=== PATIENT | male | born 1945 | race Caucasian/White ===

== ENCOUNTER 2018-06-08 02:32 | Outpatient (CLI) | payer BC, SELFPAY ==
[2018-06-08 09:15] LABS: Anion Gap 10.1 mmol/L (3-11); BUN 19 mg/dL (7-18); CO2 27.9 mmol/L (21.0-32.0); Calcium 9.1 mg/dL (8.5-10.1); Chloride 103 mmol/L (98-107); Cholesterol 122 mg/dL (50-200); Glucose 116 mg/dL (70-100); HDL Cholesterol 44 mg/dL (40-60); LDL CHOLESTEROL 65 mg/dL (<100); Potassium 4.5 mmol/L (3.5-5.1); Sodium 141 mmol/L (136-145); Triglyceride 81 mg/dL (30-150)
== END 2018-06-08 02:52 ==
PROVIDERS: PCP Internal Medicine; Visit Provider Internal Medicine
DX: E78.5 Hyperlipidemia, unspecified (principal); I10 Essential (primary) hypertension
CPT/HCPCS: 36415; 80048; 80061; 83721

== ENCOUNTER 2020-08-01 02:57 | Outpatient (CLI) | payer MEDICARE, BC, SELFPAY ==
[2020-08-01 08:55] LABS: Anion Gap 7.9 mmol/L (3-11); BUN 20 mg/dL (7-18); CO2 29.1 mmol/L (21.0-32.0); CREATININE 0.9 mg/dL (0.70-1.30); Calcium 9.2 mg/dL (8.5-10.1); Calculated LDL 71 mg/dL (<100); Chloride 104 mmol/L (98-107); Cholesterol 131 mg/dL (<200); Glucose 116 mg/dL (74-106); HDL Cholesterol 43 mg/dL (40-60); Potassium 4.5 mmol/L (3.5-5.1); Sodium 141 mmol/L (136-145); Triglyceride 86 mg/dL (<150)
== END 2020-08-01 02:58 | disposition home or self-care (01) ==
LOC: LBO 02:58
PROVIDERS: PCP Internal Medicine; Visit Provider Internal Medicine
DX: I10 Essential (primary) hypertension (principal); E78.00 Pure hypercholesterolemia, unspecified
CPT/HCPCS: 36415; 80048; 80061

== ENCOUNTER 2021-07-30 09:24 | Outpatient (CLI) | payer MEDICARE, SELFPAY ==
--- NOTE | 2021-07-30 09:15 | RT.EKG_ITS ---
APPROVED REPORT Exam: Resting ECG Reason for Exam: bradycardia Patient Location: O HR:64 bpm ECG Measurements Heart Rate 64 AXIS UT 278 P 2 QRSd 109 QRS -70 QT 401 T 54 QTc 414 Conclusion Sinus rhythm...normal P axis, V-rate 60- 99 Prolonged UT interval...UT >220, V-rate 50- 90 Incomplete RBBB and LAFB...axis(240,-40), S>R II III aVF
== END 2021-07-30 09:25 | disposition home or self-care (01) ==
LOC: DI.KIM 09:25
PROVIDERS: PCP Internal Medicine; Visit Provider Internal Medicine
DX: R00.1 Bradycardia, unspecified (principal)
CPT/HCPCS: 93010

== ENCOUNTER 2021-08-01 02:41 | Outpatient (CLI) | payer MEDICARE, SELFPAY ==
[2021-08-01 09:00] LABS: Anion Gap 7.4 mmol/L (3-11); BUN 23 mg/dL (7-18); CO2 29.6 mmol/L (21.0-32.0); CREATININE 0.9 mg/dL (0.70-1.30); Calcium 8.9 mg/dL (8.5-10.1); Calculated LDL 65 mg/dL (<100); Chloride 104 mmol/L (98-107); Cholesterol 124 mg/dL (<200); Glucose 115 mg/dL (74-106); HDL Cholesterol 40 mg/dL (40-60); Magnesium 2.2 mg/dL (1.8-2.4); Potassium 4.3 mmol/L (3.5-5.1); Sodium 141 mmol/L (136-145); Triglyceride 98 mg/dL (<150)
== END 2021-08-01 02:42 | disposition home or self-care (01) ==
LOC: LBO 02:41
PROVIDERS: PCP Internal Medicine; Visit Provider Internal Medicine
DX: I10 Essential (primary) hypertension (principal); E78.2 Mixed hyperlipidemia; R00.1 Bradycardia, unspecified
CPT/HCPCS: 36415; 80048; 80061; 83735; 84443

== ENCOUNTER 2021-08-05 01:03 | Outpatient (CLI) | payer MEDICARE, SELFPAY ==
--- NOTE | 2021-09-05 09:53 | CER_ITS ---
Date of service: 09/05/21 Time of Service: 09:53 Cardiac Event Recorder Referring Provider:: Simi De La Fuente Indications:: Bradycardia Cardiac Event Note: This is a 30-day event monitor reportedly ordered for bradycardia. Monitoring period consisted of 8 days and 9 hours Average heart rate overall this 65. Maximum was 110, minimum was 41 Predominant rhythm was sinus with first-degree AV block Mobitz 1 second-degree AV block (Shonda Gamble (was noted during sleep Heart rate during sleep fell as low as 41, some of these appear to be third- degree AV block Episodes that were reported to be atrial fibrillation on review did not appear to be that but rather sinus with atrial premature beats associated with significant artifact There were no apparent patient symptoms
== END 2021-08-05 01:04 | disposition home or self-care (01) ==
LOC: RT 01:04
PROVIDERS: PCP Internal Medicine; Visit Provider Internal Medicine
DX: R00.1 Bradycardia, unspecified (principal)
CPT/HCPCS: 93270

== ENCOUNTER 2021-09-05 09:53 | Outpatient (CLI) | payer MEDICARE, SELFPAY | END 2021-09-05 09:54 | LOC: CARDO 10-02 12:09 | PROVIDERS: PCP Internal Medicine; Referring Provider Internal Medicine; Visit Provider Internal Medicine Cardiovascular Disease | DX: R00.1 Bradycardia, unspecified (principal) | CPT/HCPCS: 93272 ==

== ENCOUNTER → 2022-03-26 11:55 | Outpatient (CLI) | payer MEDICARE, SELFPAY ==
--- NOTE | 2022-03-26 10:05 | DI.RAD_ITS ---
Exam(s) XR KNEE LT 4V AP,LAT,NISHA,PAT EXAM: XR KNEE LT 4V AP,LAT,NISHA,PAT CLINICAL HISTORY: evaluate joint space, r/o bony pathilogy,pain prox to knee and at night. TECHNIQUE: 2D digital imaging was performed. Three views. COMPARISON: No exams were available for comparison FINDINGS: BONES: No acute fracture is present. No bony destructive lesion is seen. JOINTS: Moderate to severe narrowing of the medial femoral tibial joint space. Mild periarticular sp urring. Severe narrowing of the Lateral patellofemoral joint with prominent periarticular spurring. A small joint effusion is seen. Bony densities seen superior to the patella could represent a loose body. Additional bony densities seen lateral to the patella. SOFT TISSUE: Normal. 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 DATA REPOSITORY: RADIATION DOSE DELIVERED:
--- NOTE | 2022-03-26 10:05 | DI.RAD_ITS ---
Exam(s) XR TIB/FIB LT EXAM: XR TIB/FIB LT CLINICAL HISTORY: r/o bony path; Hx radiating pain @ night,pain,m25.562,r52. TECHNIQUE: 2D digital imaging was performed. Two views. COMPARISON: CR RIGHT ANKLE COMPLETE from 05/23/2015 FINDINGS: BONES: No acute fracture is present. No bony destructive lesion is seen. Visualized portion of knee a nd ankle joints are unremarkable. SOFT TISSUE: Normal. IMPRESSION: Unremarkable radiographs of the left tibia and fibula. DATA REPOSITORY: RADIATION DOSE DELIVERED:
== END ==
PROVIDERS: PCP Internal Medicine; Visit Provider Student in an Organized Health Care Education/Training Program
DX: M25.562 Pain in left knee (principal); M79.662 Pain in left lower leg; M25.462 Effusion, left knee; M23.42 Loose body in knee, left knee; M17.12 Unilateral primary osteoarthritis, left knee
CPT/HCPCS: 73564; 73590

== ENCOUNTER 2022-08-05 20:18 | Emergency (ER) | payer MEDICARE, SELFPAY ==
[2022-08-05 20:23] VITALS: BP 159/79; PULSE 64; RESP 16; TEMP 36.2; O2SAT 96
--- NOTE | 2022-08-05 20:35 | W.ED.GENAD ---
Discharge Plan Disposition Patient Disposition: Home Discharge Details Clinical Impression: Foreign body of external eye, left Primary Care Provider: Karen Hall ED Provider: Inocente Tao Home Meds and New Rx's Prescriptions: Continued hepatitis A and B vaccine (PF) 720 VANNA unit- 20 mcg/mL syringe 1 ml IM ONCE Qty: 1 1RF Rx Instructions: administer 1st dose then 2nd dose 6 mos. later multivitamin with minerals 1 EACH tablet 1 ea PO DAILY Varicella-Zoster Ge/As01b/Pf [Shingrix Vial Kit] 50 MCG INJ 50 mcg IM ONCE Qty: 1 1RF losartan 50 mg tablet See Rx Instructions .ROUTE .COMPLEX Qty: 90 3RF Dose Instruction: TAKE ONE TABLET BY MOUTH EVERY DAY TO CONTROL FOR BLOOD PRESSURE Rx Instructions: TAKE ONE TABLET BY MOUTH EVERY DAY TO CONTROL FOR BLOOD PRESSURE atorvastatin 20 mg tablet See Rx Instructions .ROUTE .COMPLEX Qty: 90 3RF Dose Instruction: TAKE ONE TABLET BY MOUTH EVERY DAY Rx Instructions: TAKE ONE TABLET BY MOUTH EVERY DAY sildenafil [Viagra] 100 mg tablet 100 mg PO DAILY PRN (Reason: sexual activity) Qty: 10 5RF Rx Instructions: As needed for erectile dysfunction. hyewpkib-bmipndiep-IT 3.5-10,000-1 mg/mL-unit/mL-% solution 4 drp otic (ear) DIRECTED Discharge Instructions Additional Instructions: There is no evidence of foreign body or abrasion to the cornea of your left eye. Erythromycin ointment to left eye 3 times daily for the next 24 hours. Return if you develop pain, change to vision, or any other acute concern. Please continue routine medications. Medical Decision Making 76-year-old male presents from home stating while doing the dishes he felt a small piece of ceramic enter his eye. He attempted to remove and was very tearing at home. He has not had pain and questions whether the object was indeed removed. No change to vision, no persistent tearing of the eye, and no discomfort or pain. On fluorescein exam there is no evidence of foreign body, no Seidell sign. No evidence of corneal abrasion. I discussed with him it appears the object has been removed. We will empirically place him on 1 day of erythromycin ointment. He understands indications to seek reevaluation. HPI General Mode of arrival: ambulatory. Date/Time Provider Initiated Documentation: 08/05/22 20:19. Limitations to Documentation: no limitations. Information obtained by: patient. History of Present Illness 76 year old M presents to the emergency department with the chief complaint of Left eye foreign body, no pain, described as mild, and is localized to the eyes and left. Patient reports no radiation. Patient started experiencing this minute(s) and it has been now resolved. No relieving factors improve symptom(s), No exacerbating factors reported . Patient notes no other symptoms.. Patient did receive the following treatments prior to arrival, other (Question of removed at home) Related Data Home Medications Medication Instructions Recorded Confirmed multivitamin with minerals 1 ea PO DAILY 09/14/12 07/31/22 atorvastatin 20 mg tablet See Rx Instructions .Route 05/06/22 07/31/22 .COMPLEX #90 tabs losartan 50 mg tablet See Rx Instructions .Route 05/06/22 07/31/22 .COMPLEX #90 tabs sildenafil 100 mg tablet (Viagra) 100 mg PO DAILY PRN sexual 07/09/22 07/31/22 activity #10 tabs edpuwfwf-xwkugucof-qosxarlgl 3.5 4 drp otic (ear) DIRECTED 07/18/22 07/31/22 mg/mL-10,000 unit/mL-1 % ear solution hepatitis A and B virus 1 ml IM ONCE #1 mL 07/31/22 07/31/22 vaccine(PF)720 VANNA unit-20 mcg/mL IM syringe Previous Rx's Medication Instructions Recorded atorvastatin 20 mg tablet See Rx Instructions .Route 05/06/22 .COMPLEX #90 tabs losartan 50 mg tablet See Rx Instructions .Route 05/06/22 .COMPLEX #90 tabs sildenafil 100 mg tablet (Viagra) 100 mg PO DAILY PRN sexual 07/09/22 activity #10 tabs hepatitis A and B virus 1 ml IM ONCE #1 mL 07/31/22 vaccine(PF)720 VANNA unit-20 mcg/mL IM syringe Allergies Allergy/AdvReac Type Severity Reaction Status Date / Time lisinopril AdvReac Intermediate cough Verified 07/31/22 08:53 General Stated Complaint: EyeProblem SABRINA: 4 Review of Systems Narrative: Otherwise healthy, no other complaints, 4 systems were reviewed [facility] All Active Problems (Updated 08/05/22 @ 20:38 by Inocente Tao MD) Foreign body of external eye, left (Acute) Primary hypertension (Acute ~2012) Reduced speech discrimination (Acute) Sensorineural hearing loss of both ears (Acute) Obesity, unspecified (Acute 11/28/11) Male erectile disorder (Acute 06/02/13) Impaired fasting glucose (Chronic 08/09/12) Hyperlipidemia (Chronic 11/17/12) PCEq risk 22% LDL baseline 177 Adenoma of large intestine (Acute 03/02/13) 09/12/2148-llnsymqwaeq-bbnjh polyp-fragments of tubular adenoma; transverse polyp-sessile serrated [place] [place] Actinic keratosis (11/24/14) Bradycardia quality assurance monitor, stable--HR bradycardic, but it comes back down Carpal tunnel syndrome, unspecified upper limb (11/17/12) Cataracts, both eyes COVID (~03/2022) Dysphonia Exophoria of both eyes 08/08/21 [facility] [place] Fatigue (06/02/13) Hearing problem Impacted cerumen of both ears Knee pain, left Resolved with PT Lumbar spinal stenosis (~2012) MRI 2013 L3-L4 Myopia of both eyes with astigmatism and presbyopia Ocular migraine Posterior vitreous detachment, right eye H/O Pseudophakia of both eyes Vocal cord nodule Left Surgical History H/O colonoscopy (~2021) History of bilateral cataract extraction (~2009) History of strabismus surgery (~1981) Hx of tonsillectomy (~1959) Family History Mother Mental disorder Alzheimer Disease Dementia Lewy body dementia Sister Dementia Lewy body dementia Maternal Grandmother Dementia Lewy body dementia Father COPD (chronic obstructive pulmonary disease) Heart disease of [place] Maternal Grandfather Heart disease [place] at age 57 Social History Smoking/Tobacco Use Status: Never Smoking risk assessment performed?: Yes Alcohol Intake: never Drug use: Never Substance use type: does not use Adopted: No Caregiver/Support person: No Foster care: No Household members: spouse, family and children Housing: house Number of Children: 4 number of grandchildren: 7 Communication Needs: None and Hard of Hearing Education Level: master's degree Do you need help understanding health information?: Rarely 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[employer]) Pets and animals: No Sexually active: Yes Do you think of yourself as: straight/heterosexual Current gender identity: male What is your relationship status?: How often do you talk on the phone with friends or family?: three or more times per week How often do you get together with friends or relatives?: three or more times per week Do you belong to any clubs or organized social groups?: no Panel score (0-1 are the most socially isolated patients): 2 What type of physical activity do you participate in: bicycling and other Details: snow shoes when he can Duration: 15-30 minutes/day Frequency: 5-6 times per week Special amanuel needs: No Seatbelt use: always Helmet use: Yes Drive intox or ride w/intox route delivery driver: No Working smoke detector in home: Yes Fire extinguisher in home: Yes Carbon monox detector in home: Yes Do you feel safe at home: Yes Do you feel safe in your relationship?: Yes Victim of physical abuse: No Victim of emotional abuse: No Victim of sexual abuse: No Would you like helpful sources: No Exam Narrative Exam Narrative: GEN: awake, alert, oriented 3. Pleasant, well groomed, interactive. HEAD: Normocephalic, atraumatic ENT: Mucous membranes moist, oropharynx unremarkable, External ear exam unremarkable EYES: PERRL, EOMI, conjunctiva are clear, no foreign body appreciated. Under fluorescein examination there is no Giancarlo sign, no foreign body and no evidence of corneal abrasion NECK: Full ROM, no ARACELI, no menigismus CHEST/RESP: No respiratory distress EXT: Full ROM, no edema Neuro: Grossly normal neurologic exam, conversant, interactive. Psych: Speech fluent, thoughts congruent, affect normal Course Vital Signs Vital signs: Vital Signs Temperature 36.2 C L 08/05/22 20:23 Pulse 64 08/05/22 20:23 Respiratory Rate 16 08/05/22 20:23 Blood Pressure 159/79 H 08/05/22 20:23 Pulse Oximetry 96 08/05/22 20:23 Temperature 36.2 C L 08/05/22 20:23 Temperature Source Oral 08/05/22 20:23 Pulse 64 02/14/23 20:23 Respiratory Rate 16 08/05/22 20:23 Respiratory Effort Normal, Non-Labored 08/05/22 20:33 Blood Pressure 159/79 H 08/05/22 20:23 Blood Pressure Position Sitting 08/05/22 20:23 Pulse Oximetry 96 08/05/22 20:23 Oxygen Delivery Method Room Air 08/05/22 20:23 Oxygen Flow Rate 0 08/05/22 20:23
[2022-08-05] MEDS: Balanced Salt Solution 15 ML BTL OP (20:44)
[2022-08-05] MEDS: Erythromycin Ophth Oint 3.5 GM TUBE OP (20:45)
[2022-08-05] MEDS: Fluorescein STRIPS 100/BOX 1 MG (20:46)
== END 2022-08-05 20:48 | disposition home or self-care (01) ==
PROVIDERS: Emergency Provider Emergency Medicine; PCP Nurse Practitioner Adult Health
DX: T15.92XA Foreign body on external eye, part unspecified, left eye, initial encounter (principal); Z86.16 Personal history of COVID-19
CPT/HCPCS: 99283; 99284

== ENCOUNTER 2022-08-13 01:14 | Outpatient (CLI) | payer MEDICARE, SELFPAY ==
--- NOTE | 2022-08-13 07:00 | DI.MRI_ITS ---
Exam(s) MR IAC BRAIN WO/W EXAM: MR IAC BRAIN WO/W CLINICAL HISTORY: asymmetrical hearing, speech discrimination,H93.299. TECHNIQUE: Multiplanar multisequence MRI of the brain and internal auditory canals was performed. CONTRAST MATERIAL: IV Contrast: 18 mL of Dotarem contrast administered. COMPARISON: No exams were available for comparison FINDINGS: VENTRICLES AND EXTRA AXIAL SPACES: Normal in size and morphology for the patient's age. HEMORRHAGE: None. CEREBRAL PARENCHYMA: No focus of restricted diffusion to suggest acute infarct. No space-occupying le jamel identified. There are scattered hyperintense foci seen in the white matter on the T2 and FLAIR i mages most consistent with small vessel ischemic disease. MIDLINE SHIFT: None. BRAINSTEM/CEREBELLUM: Normal. CALVARIUM: Normal. ENHANCEMENT: No suspicious enhancement identified. VISUALIZED PARANASAL SINUSES/MASTOIDS: Clear. ABSENTEE-SHAWNEE OF DRAPER: Normal flow void. PITUITARY GLAND: Unremarkable. IAC/CP ANGLE: The internal auditory canals are within normal limits. The cerebellar pontine angles ar e unremarkable. No enhancing lesions are seen. Visualized portion of the facial nerves appear within normal limits. OTHER FINDINGS: None. IMPRESSION: 1. No evidence of an intracranial mass, enhancing lesion or infarct. 2. Age-appropriate cerebral atrophy and small vessel ischemic disease. DATA REPOSITORY:
[2022-08-13 08:19] LABS: Hemoglobin A1C 5.9 % (<5.7)
[2022-08-13 08:24] LABS: BUN 27 mg/dL (7-18); CREATININE 0.9 mg/dL (0.70-1.30); Calcium 8.8 mg/dL (8.5-10.1); Chloride 106 mmol/L (98-107); Estimated GFR 89.07 (mL/min/1.73m2); Glucose 181 mg/dL (74-106); Potassium 4.1 mmol/L (3.5-5.1); Sodium 142 mmol/L (136-145)
[2022-08-13] MEDS: Normal Saline Flush 10 ML SYR IVP (08:29)
[2022-08-13] MEDS: Gadoterate meglumine 20 ML VIAL 18 ML IVP (08:30)
[2022-08-13 08:39] LABS: Calculated LDL 55 mg/dL (<100); Cholesterol 116 mg/dL (<200); HDL Cholesterol 48 mg/dL (40-60); Triglyceride 68 mg/dL (<150)
[2022-08-13 08:55] LABS: Vitamin B12 1123 pg/mL (193-986)
[2022-08-13 08:57] LABS: Folate > 20.0 ng/mL (8.6-20.0)
== END 2022-08-13 01:34 ==
LOC: DI 01:15
PROVIDERS: Student in an Organized Health Care Education/Training Program; PCP Nurse Practitioner Adult Health; Visit Provider Registered Nurse Maternal Newborn
DX: H93.293 Other abnormal auditory perceptions, bilateral (principal); R73.01 Impaired fasting glucose; G57.93 Unspecified mononeuropathy of bilateral lower limbs; R47.89 Other speech disturbances; G31.89 Other specified degenerative diseases of nervous system; E78.5 Hyperlipidemia, unspecified; I10 Essential (primary) hypertension; E53.8 Deficiency of other specified B group vitamins
CPT/HCPCS: 70553; 80048; 80061; 82565; 82607; 82746; 83036

== ENCOUNTER 2023-07-03 10:57 | Outpatient (REF) | payer MEDICARE, SELFPAY ==
[2023-07-03 17:02] LABS: Bacteria Few HPF (Negative); C & S Indicated? C&S Done As Ordered; Casts Negative LPF (Negative); Crystals Negative HPF (Negative); Epithelial Cells Few HPF (Negative); Mucus Negative (Negative); RBC 0-2 HPF (0-2)
[2023-07-03 17:04] LABS: COMMENT (LAB VIEW ONLY) 92.44 mg/dL; Microalb ug/mg Crea 5.4 ug/mg Cr
== END 2023-07-03 10:58 | disposition home or self-care (01) ==
LOC: LBN 10:57
PROVIDERS: PCP Nurse Practitioner Adult Health; Visit Provider Student in an Organized Health Care Education/Training Program
DX: I10 Essential (primary) hypertension (principal); R73.01 Impaired fasting glucose; R30.0 Dysuria
CPT/HCPCS: 81015; 82043; 82570; 87086

== ENCOUNTER 2024-06-07 09:44 | Outpatient (CLI) | payer MEDICARE, SELFPAY ==
[2024-06-07 07:37] LABS: Hemoglobin A1C 5.9 % (<5.7)
[2024-06-07 07:47] LABS: Anion Gap 1.4 mmol/L (3-11); BUN 22 mg/dL (7-18); CO2 31.6 mmol/L (21.0-32.0); Calcium 9.1 mg/dL (8.5-10.1); Calculated LDL 43 mg/dL (<100); Chloride 107 mmol/L (98-107); Cholesterol 111 mg/dL (<200); Estimated GFR 77.52 (mL/min/1.73m2); Glucose 116 mg/dL (74-106); HDL Cholesterol 51 mg/dL (40-60); Potassium 4.3 mmol/L (3.5-5.1); Sodium 140 mmol/L (136-145); Triglyceride 87 mg/dL (<150)
--- OUTSIDE RECORDS SUMMARY | 2024-06-07 09:46 | XMS_ITS | Encounter Summary ---
Author Organization [facility] [place] [address] Care Team Providers Care Development Specialist Name Role Phone Simi De La Fuente MD Primary Care Provider [phone] Encounter Details Date Type Department Care Team (Latest Contact Info) Description 05/19/2022 Travel Social History Tobacco Use Types Packs/Day Years Used Date Smoking Tobacco: Never Smokeless Tobacco: Never Alcohol Use Standard Drinks/Week Comments No 0 (1 standard drink = 0.6 oz pur e alcohol) Sex and Gender Information Value Date Recorded Sex Assigned at Not on file Gender Identity Not on file Sexual Orientation Not on file documented as of this encounter Plan of Treatment Upcoming Encounters Date Type Department Care Team (Late st Contact Info) Description 05/09/2025 10:45 AM EST Office Visit Dermatology at [address] [place] [address] Melvin Ruiz MD [address] [place] [address], [place] [address] 06/08/2025 3:00 PM EST [place] [address] Irina Kaufman OD [facility] [place] [address] documented as of this encounter Visit Diagnoses Not on filedocumented in this encounter Care Teams Development Specialist Relationship Specialty Start Date End Date Simi De La Fuente MD [address] [place] [address] PCP - General General Internal Medicine 11/28/1604/29/23 documented as of this encounter
--- OUTSIDE RECORDS SUMMARY | 2024-06-07 09:46 | XMS_ITS | Encounter Summary ---
Author Organization [facility] [place] [address] Care Team Providers Care Material Lister Name Role Phone Karen Hall [employer] Primary Care Provider [phone] Reason for Visit * Reason Comments Eye Problem Encounter Details Date Type Department Care Team (Late st Contact Info) Description 09/24/2023 9:40 AM EDT Office Visit [place] [address] Irina Kaufman, OD [facility] [place] [address] Pseudophakia of both eyes; History of strabismus surgery; Exophoria of both eyes; Ocular migraine; Blepharitis of both upper and lower eyelid; Chalazion of right upper eyelid; Posterior vitreous detachment of right eye; Myopia of both eyes with astigmatism and presbyopia Social History Tobacco Use Types Packs/Day Years Used Date Smoking Tobacco: Never Smokeless Tobacco: Never Alcohol Use Standard Drinks/Week Comments No 0 (1 standard drink = 0.6 oz pur e alcohol) Sex and Gender Information Value Date Recorded Sex Assigned at Not on file Gender Identity Not on file Sexual Orientation Not on file documented as of this encounter Patient Instructions * Patient Instructions* Irina Kaufman, OD - 09/24/2023 9:40 AM EDT BLEPHARITIS As we discussed, you have dryness of your eyes/eyelids that is chronic! Warm compresses with a clean washcloth followed by lid scrubs with either Lid Care or similar pre-medicate guaze pads or justdigracielae Sancho's Baby Shampoo should help. As this is a chronic condition that took a long time to get, it won't go away overnight. Keep up with the treatment daily!! Blepharitis is a common condition where the glands of the eyelids become blocked or inflamed. Theseglands secrete oils that are necessary for maintaining a healthy tear film over the eye. If the glands become clogged and inflamed, your eyes may feel dry, irritated, scratchy or burning. Other symptoms are redness, stickiness, grittiness, tearing and a ???film?? over the vision. If the condition is not treated, you may develop styes, chalazions (hard bumps on the lids) or lid scarring and loss of eyelashes. Blepharitis is often found in people that have rosacea which is a skin condition that consists of redness of the cheeks, forehead and nose. Fortunately, blepharitis is a very treatable condition. The mainstay of treatment is good daily cleansing of the eyelids/lashes and warm compresses. Here are the instructions: Wash your hands and fingertips well. Use a clean wash cloth soaked in hot (but not burning) water. Hold the cloth gently against your closed eyes and reheat the cloth every 2-3 minutes. Massage above the eyelids with your eyes closed. After 10 minutes of application, with your eyes closed, take your fingers and gently rub across thelashes, freeing up any accumulated debris. Do this for 15- 30 seconds. Avoid touching the eyeball directly. Rinse the lashes with water and pat dry. You should do the above cleaning at least twice a day. ANOTHER OPTION FOR WARM COMPRESSES - PURCHASE links below: https://[employer]/collections/eye-care/products/bsvcgb-cgmed-rtgx-eye-comp ress. https://[employer] [place]/collections/eye-care/products/chadoq-mhpbrzyr-xmxgta-car s-xex-hpcag-jxf-aofq-urlopsa - can order such items individually. https://www.[employer]on/btvya-alwp-grq-compress JOSE EDUARDO Moist Heat Eye Compress opens oil glands and allows natural oils to flow back into the eye relieving discomfort from aging, contact lenses, use of digital devices and more. The easy-to-use compress delivers an effective moist heat treatment. Simply microwave for 20-25 seconds and apply for 10 minutes or as prescribed by your doctor. The compress helps stabilize the tear film, improves oil gland function and slows tear evaporation.Properly hydrated and lubricated eyes can expel bacteria and debris more efficiently so your eyes will feel refreshed and rejuvenated. Safe for frequent use. Self-hydrating - no need to add water. Anti-bacterial and non-allergenic. Washable and reusable. optimum conformance and comfort. Unique pod design provides improved fit and performance. Also available in a single eye model. The following are other things you can do for blepharitis. All products are sold over the counter. Cleaning EYELASHES with dilute Sancho's Baby Shampoo should help. Consider a dietary capsule supplement of [place] 3 Fatty Acids Please take 2000- 3000 mg of omega 3 fatty acids per day. These products can be bought in a health food store or there is a capsule called ???TheraTears Nutrition?? containing these ingredients. (If you have medical conditions, you shouldcheck with your primary care physician to make sure it is safe for you to use this product). For dry eye, use AM and PM PRESERVATIVE FREE drops noted below 4 to 6 times per day. Do NOT use ???Visine or anything that says ???gets the red out?? . AM Drops (Use 4-6 times per day) - DAYTIME DROPS TheraTears Refresh GenTeal Systane PM Drops (Use once at night in both eyes before you go to bed) - NIGHT-TIME DROPS Refresh PM Systane Gel GenTeal Gel Usually your eye comfort will improve after 4-6 weeks of treatment. If not, your eye doctor will discuss the situation with you. This is a chronic condition that took a long time to get, it won't go away overnight. Keep up with the treatment daily! documented in this encounter Progress Notes * Irina Kaufman, OD - 09/24/2023 9:40 AM EDT Martha Pulliam is a 78 y.o. male who had concerns including Eye Problem. Encounter Diagnoses Name Primary? Pseudophakia of both eyes History of strabismus surgery Exophoria of both eyes Ocular migraine Blepharitis of both upper and lower eyelid Chalazion of right upper eyelid Posterior vitreous detachment of right eye Myopia of both eyes with astigmatism and presbyopia Assessment: 1) Pseudophakia OU (by Dr. Gonzalez) 2) Ocular migraines - infrequent, stable. 3) S/p strabismus surgery both eyes at [facility] in 4) H/o posterior vitreous detachment OU, stable, documented since 2010 5) Refractive error / presbyopia OU 6) Chalazion RUL in the setting of Anterior & MGD-related Posterior Blepharitis OU contributingto Dry Eye OU - Advised lid hygiene with dilute baby shampoo or OcuSoft wipes & warm compress BID 5-10 min OUwith lid massage - Advised PF AT's Refresh, Systane or Thera Tears QID-PRN OU & Refesh PM vy QHS OU. - Pt ed re chronicity of condition and need for continued lid maintenance. RTC w/ worsening sx. Plan: 1) Monitor. 2) Pt education on ocular findings. Normal retinal exam. Monitor. 3) Good alignment today, exophoria at D=N. Return with symptoms of diplopia. 4) Stable. Return stat with new onset flashes, floaters, curtain or other visual change. 5) Does okay without glasses however needs glasses for driving rx given. Continue with OTC readers at near PRN. Cautioned about driving !! Follow up: as malissa for CEE. documented in this encounter Plan of Treatment Upcoming Encounters Date Type Department Care Team (Late st Contact Info) Description 05/09/2025 10:45 AM EST Office Visit Dermatology at [place] [address] [place] [id number] Melvin Ruiz MD [address], [place] [address] 06/08/2025 3:00 PM EST Office Visit [place] [address] Irina Kaufman OD [facility] [place] [address] documented as of this encounter Visit Diagnoses Diagnosis Pseudophakia of both eyes Lens replaced by other means History of strabismus surgery Exophoria of both eyes Ocular migraine Other forms of migraine, without mention of intractable migraine without mention of status migrainosus Blepharitis of both upper and lower eyelid Chalazion of right upper eyelid Chalazion Posterior vitreous detachment of right eye Vitreous degeneration Myopia of both eyes with astigmatism and presbyopia documented in this encounter Care Teams Material Lister Relationship Specialty Start Date End Date Karen Hall APRN [address] [place] [address] PCP - General Geriatric Medicine 04/30/23 documented as of this encounter
--- OUTSIDE RECORDS SUMMARY | 2024-06-07 09:46 | XMS_ITS | Encounter Summary ---
[place] [address] Care Team Providers Care Iso Coordinator Name Role Phone Bandar Dorantes MD Primary Care Provider + Reason for Visit * Reason Comments Advice Only * Consultation (Routine) - Closed Specialty Diagnoses / Procedures Referred By Aurelia devi Referred To Contact Otolaryngology Diagnoses tongue numbness Bandar Dorantes MD [address] [place] [phone] [facility] [address] [place] [phone] Referral ID Status Reason Start Date Expiration Date V isits Requested Visits Authorized [id number] Closed Connection Center 10/31/2016 10/31/2017 1 1 Encounter Details Date Type Department Care Team (Late st Contact Info) Description 11/25/2016 2:00 PM EDT Office Visit [place] [address] Eleni Jose APRN [facility] [place] [address] Numbness of tongue Social History Tobacco Use Types Packs/Day Years Used Date Smoking Tobacco: Never Alcohol Use Standard Drinks/Week Comments No 0 (1 standard drink = 0.6 oz pur e alcohol) Sex and Gender Information Value Date Recorded Sex Assigned at Not on file Gender Identity Not on file Sexual Orientation Not on file documented as of this encounter Last Filed Vital Signs Vital Sign Reading Time Taken Comments Blood Pressure 173/94 11/25/2016 2:11 PM EDT Pulse 69 11/25/2016 2:11 PM EDT Temperature - - Respiratory Rate 20 11/25/2016 2:11 PM EDT Oxygen Saturation 100% 11/25/2016 2:11 PM EDT Inhaled Oxygen Concentration - - Weight - - Height - - Body Mass Index - - documented in this encounter Progress Notes * Eleni Jose, [employer] - 11/25/2016 2:00 PM EDT Date of Visit:11/25/2016 Location of Visit: Otolaryngology Clinic, [facility] Patient: Martha Pulliam 1945, [id number] Chief Complaint: Kendall is a 71 year old with c/o numbness off and on the left lateral aspect of his tongue after a tooth extraction. Interval History: Kendall is a 71 year old with the above history here for an evaluation of numbness along the left lateral tongue. The symptoms started 2 weeks after 2 molars were removed along the posterior mandible. He has been back to see his dentist who has not found any issues. The numbness can occur randomly and last for a few seconds. He has noticed some numbness which is caused from hot /and cold food or drink. He denies any other neurological symptoms. Taste is wnl. He has full motionof his tongue. He is planning on getting an implant. Past Medical History: Other than above, Past Medical History: Diagnosis Date ??? Cardiac disease ??? Strabismus Surgery x's 2-OU . Medications: Current Outpatient Prescriptions on File Prior to Visit Medication Sig Dispense Refill ??? atorvastatin (LIPITOR) 40 mg Tablet Daily ??? losartan (COZAAR) 50 mg Tablet Daily No current facility-administered medications on file prior to visit. Allergies:Review of patient's allergies indicates no known allergies. ROS: Pertinent positive findings discussed above. No other findings on review of constitutional, visual, cardiovascular, respiratory, gastrointestinal, genitourinary, musculoskeletal, dermatologic, neurological, psychiatric, endocrine, hematologic or immunologic systems. Physical Examination: Blood pressure (!) 173/94, pulse 69, resp. rate 20, SpO2 100 %. General: Age-appropriate interactive behavior in no acute distress. Face:Symmetric without dysmorphic features. Ears: Auricles symmetric bilaterally without lesions. External auditory canals are clear. On the left, tympanic membrane is clear. Middle ear on the left without middle ear pathology. On the right, tympanic membrane clear. Middle ear on the right without middle ear pathology. Nose: Patent anteriorly; healthy pink mucosa without lesions. Septum without significant deviation. Mouth: Lips and gingiva pink, moist, without lesions. Dentition healthy but 2 molars are extracted along the posterior mandible on the left. Tongue and floor of mouth soft without lesions or masses. Hard palate without lesions. Pharynx: Soft palate without lesions; uvula intact without evidence of submucus cleft palate. Oropharynx symmetric. Neck: No lymphadenopathy. Neuro: CN III-XII grossly intact. Impression: 1) Numbness of tongue after dental extraction Plan: The extraction may have had a dental root that was close to the facial nerve causing some change in sensitivity to the tongue. He has a normal neuro exam today. I asked that he monitor any changes and rtc if that should occur. Eleni MCKEON [facility] Otolaryngology-Head and Neck Surgery [place], [place] [address] documented in this encounter Plan of Treatment Upcoming Encounters Date Type Department Care Team (Late st Contact Info) Description 05/09/2025 10:45 AM EST Office Visit Dermatology at [place] [address] [place] [address] Melvin Ruiz MD [address], JU[place] [address] 06/08/2025 3:00 PM EST Office Visit [place] [address] Irina Kaufman, [place] [facility] [place] [address] documented as of this encounter Visit Diagnoses Diagnosis Numbness of tongue Disturbance of skin sensation documented in this encounter Care Teams Iso Coordinator Relationship Specialty Start Date End Date Bandar Dorantes MD [address] [place] [address] PCP - General 05/14/10 11/27/16 documented as of this encounter
--- OUTSIDE RECORDS SUMMARY | 2024-06-07 09:46 | XMS_ITS | Encounter Summary ---
[place] [address] Care Team Providers Care Programming Coordinator Name Role Phone Karen Hall APRN Primary Care Provider [phone] Reason for Visit * Reason Comments Annual Exam Encounter Details Date Type Department Care Team (Late st Contact Info) Description 04/30/2023 2:00 PM EST Office Visit Dermatology at [address] [place] [address] Melvin Ruiz MD [address] [place] [address] RD, [place] [address] Nevus; AK (actinic keratosis) Social History Tobacco Use Types Packs/Day Years Used Date Smoking Tobacco: Never Smokeless Tobacco: Never Alcohol Use Standard Drinks/Week Comments No 0 (1 standard drink = 0.6 oz pur e alcohol) Sex and Gender Information Value Date Recorded Sex Assigned at Not on file Gender Identity Not on file Sexual Orientation Not on file documented as of this encounter Progress Notes * Melvin Ruiz MD - 04/30/2023 2:00 PM EST Problem: 1. Yearly skin check 2. 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 He has been doing well. He has not noted any new lesions of concern. Physical examination reveals a pleasant 77-year-old gentleman has a hyperkeratotic actinic keratosis on the left bald parietal scalp and several actinic's in the left faith area. Otherwise examination of the head and the neck the chest the back the hands arms forearms thighs and calves is benign. T here is no evidence of any cutaneous malignancies today. Assessment and plan: Actinic keratosis left faith and parietal scalp 1. LN 2 x 2 applied to each of 4 sites 2. Return to clinic in a year for repeat check. CC: Karen Hall APRN documented in this encounter Plan of Treatment Upcoming Encounters Date Type Department Care Team (Late st Contact Info) Description 05/09/2025 10:45 AM EST Office Visit Dermatology at [place] [address] [place] [address] Melvin Ruiz MD [address] [facility], [place] [address] 06/08/2025 3:00 PM EST Office [place] [address] Irina Kaufman OD [facility] [place] [address] documented as of this encounter Visit Diagnoses Diagnosis Nevus Benign neoplasm of skin, site unspecified AK (actinic keratosis) Actinic keratosis documented in this encounter Care Teams Programming Coordinator Relationship Specialty Start Date End Date Karen Hall APRN [address] [place] [address] PCP - General Geriatric Medicine 04/30/23 documented as of this encounter
--- OUTSIDE RECORDS SUMMARY | 2024-06-07 09:46 | XMS_ITS ---
Author Organization Unknown ALLERGIES AND ADVERSE REACTIONS No information ASSESSMENT No information CHIEF COMPLAINT No information MEDICATIONS No information OBJECTIVE DATA No information PHYSICAL EXAMINATION No information TREATMENT PLAN Planned Care Start Date Provider Encounter for Check-up [id number] PROBLEMS No information RESULTS No information REVIEW OF SYSTEMS No information SUBJECTIVE DATA No information VITAL SIGNS No information
--- OUTSIDE RECORDS SUMMARY | 2024-06-07 09:46 | XMS_ITS | Encounter Summary ---
Author Organization [facility] [place] [address] Care Team Providers Care Awning Hanger Supervisor Name Role Phone Karen Hall APRN Primary Care Provider [phone] Encounter Details Date Type Department Care Team (Latest Contact Info) Description 09/24/2023 Travel Social History Tobacco Use Types Packs/Day [...] 10:45 AM EST Office Visit Dermatology at [address] [place] [address] Melvin Ruiz MD [address] [place] [address] RD, J[facility] [place] [address] 06/08/2025 3:00 PM EST Office [place] [address] Irina Kaufman OD [facility] [place] [address] documented as of this encounter Visit Diagnoses Not on filedocumented in this encounter Care Teams Awning Hanger Supervisor Relationship Specialty Start Date End Date Karen Hall APRN [address] [place] [address] PCP - General Geriatric Medicine 04/30/23 documented as of this encounter
--- OUTSIDE RECORDS SUMMARY | 2024-06-07 09:46 | XMS_ITS | Encounter Summary ---
Author Organization [facility] [place] [address] Care Team Providers Care Car Spotter Name Role Phone Simi De La Fuente MD Primary Care Provider [phone] Encounter Details Date Type Department Care Team (Late st Contact Info) Description 03/26/2022 Ancillary Procedure Radiology Library [place] [phone] Simi De La Fuente MD [address] [place] [id number] Social History Tobacco Use Types Packs/Day Years [...] 10:45 AM EST Office Visit Dermatology at [place] [address] [facility] [place] [address] Melvin Ruiz MD [address] [facility], [place] [address] 06/08/2025 3:00 PM EST Office Visit Ophthalmology at [facility] [place] [address] Irina Kaufman OD [facility] [place] [address] documented as of this encounter Procedures Procedure Name Priority Date/Time Associated Diagnosis Comments FILM LIBRARY STORAGE ONLY DX KNEE Routine 03/26/2022 12:00 AM EDT documented in this encounter Results * Film Library- Storage Only DX Knee (03/26/2022 12:00 AM EDT) Narrative [facility] - 05/19/2022 4:16 PM EST This exam is auto-finalizing. It's purpose is for storage only. Simi De La Fuente MD G FILM LIBRARY ORD ERABLES [place], [place] documented in this encounter Visit Diagnoses Not on filedocumented in this encounter Care Teams Car Spotter Relationship Specialty Start Date End Date Simi De La Fuente MD [address] [place] [address] PCP - General General Internal Medicine 11/28/1604/29/23 documented as of this encounter
--- OUTSIDE RECORDS SUMMARY | 2024-06-07 09:46 | XMS_ITS | Encounter Summary ---
Author Organization [facility] [place] [address] Care Team Providers Care Brand Analyst Name Role Phone Karen Hall APRN Primary Care Provider [phone] Encounter Details Date Type Department Care Team (Latest Contact Info) Description 05/03/2024 Travel Social History Tobacco Use Types Packs/Day [...] 10:45 AM EST Office Visit Dermatology at [address] [place] [address] Melvin Ruiz MD [address] [place] [address] RD, [place] [address] 06/08/2025 3:00 PM EST Office [place] [address] Irina Kaufman OD [facility] [place] [address] documented as of this encounter Visit Diagnoses Not on filedocumented in this encounter Care Teams Brand Analyst Relationship Specialty Start Date End Date Karen Hall APRN [address] [place] [address] PCP - General Geriatric Medicine 04/30/23 documented as of this encounter
--- OUTSIDE RECORDS SUMMARY | 2024-06-07 09:46 | XMS_ITS | Encounter Summary ---
Author Organization [facility] [place] [address] Care Team Providers Care Hand Ii Thermal Cutter Name Role Phone Simi De La Fuente MD Primary Care Provider [phone] Reason for Visit * Reason Comments Eye Exam Encounter Details Date Type Department Care Team (Late st Contact Info) Description 06/03/2018 8:00 AM EST Office Visit Ophthalmology at [facility] [place] [address] Selin [place], OD [facility] [place] [address] Pseudophakia of both eyes; Ocular migraine; Myopia of both eyes with astigmatism and presbyopia; History of strabismus surgery; Exophoria of both eyes Social History Tobacco Use Types Packs/Day Years Used Date Smoking Tobacco: Never Alcohol Use Standard Drinks/Week Comments No 0 (1 standard drink = 0.6 oz pur e alcohol) Sex and Gender Information Value Date Recorded Sex Assigned at Not on file Gender Identity Not on file Sexual Orientation Not on file documented as of this encounter Progress Notes * Selin [place], OD - 06/03/2018 8:00 AM EST Martha Pulliam is a 72 y.o. male who had concerns including Eye Exam. Here to re-establish eye care at [facility] here 2010. Assessment: 1) Pseudophakia both eyes (Dr. Gonzalez) 2) Ocular migraines 3) S/p strabismus surgery both eyes in [facility] in 4) H/o posterior vitreous detachment right eye 5) Refractive error / presbyopia OU Plan: 1) Monitor. 2) Pt education on ocular findings. Normal retinal exam. Monitor. 3) Good alignment today, exophoria at D=N. Return with symptoms of diplopia. 4) Stable. Edu that similar process will likely occur in the future in the other eye. Return stat with new onset flashes, floaters, curtain or other visual change. 5) Does okay without glasses. MRx dispensed for NVO. Follow up: 1 year for CEE. Eyeglass Final Rx Eyeglass Final Rx Sphere Cylinder [place] Add Right -1.00 +0.75 165 +2.50 Left -0.50 +0.75 035 +2.50 Type: SVL Expiration Date: 06/03/2020 Pupillary Distance: 61 documented in this encounter Plan of Treatment Upcoming Encounters Date Type Department Care Team (Late st Contact Info) Description 05/09/2025 10:45 AM EST Office Visit Dermatology at [place] [address] [place] [address] Melvin Ruiz MD [address] [facility] [address], [place] [address] 06/08/2025 3:00 PM EST Office [place] [address] Irina Kaufman, [place] [facility] [address] documented as of this encounter Visit Diagnoses Diagnosis Pseudophakia of both eyes Lens replaced by other means Ocular migraine Other forms of migraine, without mention of intractable migraine without mention of status migrainosus Myopia of both eyes with astigmatism and presbyopia History of strabismus surgery Exophoria of both eyes documented in this encounter Care Teams Hand Ii Thermal Cutter Relationship Specialty Start Date End Date Simi De La Fuente MD [address] [place] [address] PCP - General General Internal Medicine 11/28/1604/29/23 documented as of this encounter
--- OUTSIDE RECORDS SUMMARY | 2024-06-07 09:46 | XMS_ITS | Encounter Summary ---
Author Organization [facility] [place] [address] Care Team Providers Care Hearing Aide Technician Name Role Phone Karen Hall APRN Primary Care Provider [phone] Encounter Details Date Type Department Care Team (Latest Contact Info) Description 05/28/2023 Travel Social History Tobacco Use Types Packs/Day [...] 10:45 AM EST Office Visit Dermatology at [address] [place] [address] Melvin Ruiz MD [address] [place] [address] RD, [place] [address] 06/08/2025 3:00 PM EST Office [place] [address] Irina Kaufman OD [facility] [place] [address] documented as of this encounter Visit Diagnoses Not on filedocumented in this encounter Care Teams Hearing Aide Technician Relationship Specialty Start Date End Date Karen Hall APRN [address] [place] [address] PCP - General Geriatric Medicine 04/30/23 documented as of this encounter
--- OUTSIDE RECORDS SUMMARY | 2024-06-07 09:46 | XMS_ITS | Encounter Summary ---
Author Organization [facility] [place] [address] Care Team Providers Care Director Style Name Role Phone Simi De La Fuente MD Primary Care Provider [phone] Reason for Visit * Reason Comments Follow-up Skin Check Encounter Details Date Type Department Care Team (Late st Contact Info) Description 10/26/2018 4:30 PM EDT Office Visit Dermatology at [address] [place] [address] Melvin Ruiz MD [address] [place] [address], [place] [address] Nevus; [place] (actinic keratosis) Social History Tobacco [...] Progress Notes * Melvin Ruiz MD - 10/26/2018 4:30 PM EDT Problem: 1. Yearly skin check 2. 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 He would like me to do a general skin checkup.He like me to check some moles on his back as well as spots on his scalp. It has been 2 years sinceI saw him last. Physical examination reveals a pleasant 73-year-old gentleman who has 2 actinic keratoses present on the mid thinning parietal scalp. He has benign-appearing junctional melanocytic nevi on the lower back to on the left one on the right. The each 8 mm in diameter. Careful examination of the face theears the neck the hands the arms forearms and the back is benign. Assessment and plan: Actinic keratoses vertex of scalp 1. LN 2 x 2 applied each of 2 sites Benign melanocytic nevi, benign skin examination 1. Patient reassured about remainder of benign skin examination 2. Return to clinic 1 year for repeat check. 3. Continue sun avoidance precautions. CC: Simi De La Fuente MD documented in this encounter Plan of Treatment Upcoming Encounters Date Type Department Care Team (Late st Contact Info) Description 05/09/2025 10:45 AM EST Office Visit Dermatology at [place] [address] [facility] [place] [address] Melvin Ruiz MD [address] [facility], [place] [address] 06/08/2025 3:00 PM EST Office Visit [place] [address] Irina Kaufman OD [facility] [place] [address] documented as of this encounter Visit Diagnoses Diagnosis Nevus Benign neoplasm of skin, site unspecified [place] (actinic keratosis) Actinic keratosis documented in this encounter Care Teams Director Style Relationship Specialty Start Date End Date Simi De La Fuente MD [address] [place] [address] PCP - General General Internal Medicine 11/28/1604/29/23 documented as of this encounter
--- OUTSIDE RECORDS SUMMARY | 2024-06-07 09:46 | XMS_ITS | Encounter Summary ---
Author Organization [facility] [place] [address] Care Team Providers Care Genetic Engineer Name Role Phone Karen Hall [employer] Primary Care Provider [phone] Reason for Visit * Reason Comments Pseudophakia Encounter Details Date Type Department Care Team (Late st Contact Info) Description 06/01/2024 10:00 AM EST Office [place] [address] Irina Kaufman, OD [facility] [place] [address] Pseudophakia of both eyes; History of strabismus surgery; Exophoria of both eyes; Ocular migraine; Posterior vitreous detachment of both eyes; Myopia of both eyes with astigmatism and [...] as of this encounter Progress Notes * Irina Kaufman, OD - 06/01/2024 10:00 AM EST NathanaelKendall Pulliam is a 78 y.o. male who had concerns including Pseudophakia. Encounter Diagnoses Name Primary? Pseudophakia of both eyes History of strabismus surgery Exophoria of both eyes Ocular migraine Posterior vitreous detachment of right eye Myopia of both eyes with astigmatism and presbyopia Assessment: 1) Pseudophakia OU (by Dr. Gonzalez) 2) Ocular migraines - infrequent, stable. 3) S/p strabismus surgery both eyes at [facility] in 4) H/o posterior vitreous detachment OU, stable, documented since 2010 5) Refractive error / presbyopia OU Plan: [...] PRN. Cautioned about driving !! Follow up: 1 yr CEE. documented in this encounter Plan of Treatment Upcoming Encounters Date Type Department Care Team (Late st Contact Info) Description 05/09/2025 10:45 AM EST Office Visit Dermatology at [place] [address] [facility] [place] [address] Melvin Ruiz MD [address] [facility] [address], [place] [address] 06/08/2025 3:00 PM EST Office [place] [address] Irina Kaufman, [place] [facility] [place] [address] documented as of this encounter Visit Diagnoses Diagnosis Pseudophakia of both eyes Lens replaced by other means History of strabismus surgery Exophoria of both eyes Ocular migraine Other forms of migraine, without mention of intractable migraine without mention of status migrainosus Posterior vitreous detachment of both eyes 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 [address] PCP - General Geriatric Medicine 04/30/23 documented as of this encounter
--- OUTSIDE RECORDS SUMMARY | 2024-06-07 09:46 | XMS_ITS | Encounter Summary ---
[place] [address] Care Team Providers Care Bin Filler Name Role Phone Simi De La Fuente MD Primary Care Provider Reason for Visit * Auth/Cert Specialty Diagnoses / Procedures Referred By Contac t Referred To Contact Diagnoses Encounter for screening colonoscopy 3 YEAR SCREENING Procedures PRO COLONOSCOPY, DIAGNOSTIC PRO COLONOSCOPY, BIOPSY PRO COLONOSCOPY, REMV LESN, SNARE COLONOSCOPY, DIAGNOSTIC Referral ID Status Reason Start Date Expiration Date Visits Re quested Visits Authorized [id number] 1 1 Encounter Details Date Type Department Care Team (Late st Contact Info) Description 09/12/2021 9:04 AM EDT - 09/12/2021 1:19 PM EDT Hospital Encounter [place] [address] Ashutosh Chang MD [facility] [place] [address] Discharge Disposition: Home Social History Tobacco Use Types Packs/Day Years [...] Sign Reading Time Taken Comments Blood Pressure 113/72 09/12/2021 1:00 PM EDT Pulse 59 09/12/2021 12:07 PM EDT Temperature - - Respiratory Rate 16 09/12/2021 1:00 PM EDT Oxygen Saturation 94% 09/12/2021 1:00 PM EDT Inhaled Oxygen Concentration - - Weight 90.7 kg (200 lb) 09/12/2021 9:47 AM EDT Height 172.7 cm (5' 8) 09/12/2021 9:47 AM EDT Body Mass Index 30.41 09/12/2021 9:47 AM EDT documented in this encounter Discharge Instructions * Discharge Instructions* Cathie Sy RN - 09/12/2021 12:47 PM EDT Colonoscopy: What to Expect at Home Your Recovery Your doctor will talk to you about when you will need your next colonoscopy. Your doctor can help you decide how often you need to be checked. This will depend on the results of your test and your risk for colorectal cancer. After the test, you may be bloated or have gas pains. You may need to pass gas. If a biopsy was done or a polyp was removed, you may have streaks of blood in your stool (feces) for a few days. Problems such as heavy rectal bleeding may not occur until several weeks after the test. This isn't common. But it can happen after polyps are removed. This care sheet gives you a general idea about how long it will take for you to recover. But each person recovers at a different pace. Follow the steps below to get better as quickly as possible. How can you care for yourself at home? Activity Rest when you feel tired. You can do your normal activities when it feels okay to do so. Diet Follow your doctor's directions for eating. Unless your doctor has told you not to, drink plenty of fluids. This helps to replace the fluids that were lost during the colon prep. Do not drink alcohol. Medicines Your doctor will tell you if and when you can restart your medicines. He or she will also give you instructions about taking any new medicines. If you take blood thinners, such as warfarin (Coumadin), clopidogrel (Plavix), or aspirin, be sure to talk to your doctor. He or she will tell you if and when to start taking those medicines again. Make sure that you understand exactly what your doctor wants you to do. If polyps were removed or a biopsy was done during the test, your doctor may tell you not to take aspirin or other anti-inflammatory medicines for a few days. These include ibuprofen (Advil, Motrin) and naproxen (Aleve). Other instructions For your safety, do not drive or operate machinery until the medicine wears off and you can think clearly. Your doctor may tell you not to drive or operate machinery until the day after your test. Do not sign legal documents or make major decisions until the medicine wears off and you can think clearly. The anesthesia can make it hard for you to fully understand what you are agreeing to. Additional Information for Sedation Patients For patients who received sedation: You may have received medications before and/or during your procedure which effects your judgement and reaction time. Do not drive, operate machinery, drink alcoholic beverages or make important decisions for 24 hours. Be careful on stairs as you may be unsteady on your feet. You may eat a regular diet as tolerated. Do not smoke if you are alone. IV site: Slight redness or tenderness is normal, you can use a warm compress if you would like. If tenderness and/or redness increase or if foul drainage occurs, please contact your Doctor. Please call [phone] before 8pm Mon-Fri with problems, questions or concerns. If you call after 8pm or on weekends, call the Hospital at [phone] and ask to speak to the Stock Dealer operations and maintenance supervisor and the scrubbing machine operator will contact that person for you. When should you call for help? Call [phone] anytime you think you may need emergency care. For example, call if: You passed out (lost consciousness). You pass maroon or bloody stools. You have trouble breathing. Call your doctor now or seek immediate medical care if: You have pain that does not get better after you take pain medicine. You are sick to your stomach or cannot drink fluids. You have new or worse belly pain. You have blood in your stools. You have a fever. You cannot pass stools or gas. Watch closely for changes in your health, and be sure to contact your doctor if you have any problems. Where can you learn more? [facility] View your After Visit Summary and more online at [email or web address] If you would like to provide feedback about your hospital experience, please call the Office of Patient and Family Relations at . If you have received this After Visit Summary in error, please immediately return it in person to the department, or notify the [facility] Privacy Office by calling toll free at between the hours of 8AM and 5PM to arrange for our retrieval of the documents at no cost to you. Content Version: 12.2 ?? [id number] [employer]. Care instructions adapted under license by [facility]. If you have questions about a medical condition or this instruction, always ask your healthcare professional. [employer] disclaims any warranty or liability for your use of this information. documented in this encounter Medications at Time of Discharge Medication Sig Dispensed Refills Start Date End Date sildenafil (VIAGRA) 100 mg Tablet Take 1 tablet by mouth daily. 1 04/23/2018 atorvastatin (Lipitor) 40 mg Tablet Daily 09/22/2012 losartan (COZAAR) 50 mg Tablet Daily 11/17/2012 documented as of this encounter H&P Notes * Ashutosh Chang MD - 09/12/2021 11:24 AM EDT Patient Name: Martha Pulliam Patient Age: 76 y.o. Birthdate: 1945 Admit date: 09/12/2021 Attending Physician: Ashutosh Chang MD Gastroenterology & Hepatology Pre-Procedure History and Physical Planned Procedure: Colonoscopy: Indication: surveillance Patient Active Problem List Diagnosis Code ??? CIS - bilateral wrist pain ??? CIS - Entered not Verified ??? 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 Ocular migraine G43.109 ??? Myopia of both eyes with astigmatism and presbyopia H52.13, H52.203, H52.4 ??? History of strabismus surgery Z98.890 ??? 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 Lisinopril Cough Social History/Family History: Reviewed in EDH. No changes Exam: Patient Vitals for the past 24 hrs: Pulse BP SpO2 O2 Device 09/12/21 0947 68 122/70 99 % RA GEN: NAD, AAOX3 HEENT: NC/AT dryMM, anicteric Chest: CTAB Heart: RRR, nl s1, s2 Abdomen: normal bowel sounds, soft, non tender Assessment and Plan: Proceed with Colonoscopy: ASA Grade: ASA 2 - Patient with mild systemic disease with no functional limitations Mallampati: II (soft palate, uvula, fauces visible) Sedation plan: IV Conscious Sedation Risks and benefits of the procedure were discussed with the patient. Risks discussed including bleeding, infection, reaction to anesthesia, perforation or other intraabdominal trauma, pancreatitis (if applicable), missing a cancer (if applicable) and/or other unforseen complication. Informed Consent signed by patient (or jewelry sales representative). documented in this encounter Plan of Treatment Upcoming Encounters Date Type Department Care Team (Late st Contact Info) Description 05/09/2025 10:45 AM EST Office Visit Dermatology at [place] [address] [place] [address] Melvin Ruiz MD [address] [facility], [place] [address] 06/08/2025 3:00 PM EST Office [place] [address] Irina Kaufman OD [facility] [place] [address] documented as of this encounter Procedures Procedure Name Priority Date/Time Associated Diagnosis Comments SURGICAL PATHOLOGY REPORT Routine 09/12/2021 12:07 PM EDT SPECIMEN TO PATHOLOGY Routine 09/12/2021 12:07 PM EDT SPECIMEN TO PATHOLOGY Routine 09/12/2021 12:07 PM EDT Colonoscopy, Erma Gallardo ([id number]) 09/12/2021 11:37 AM EDT 3 YEAR SCREENING COLONOSCOPY Routine 09/12/2021 11:24 AM EDT documented in this encounter Results * Surgical Pathology Report (09/12/2021 12:07 PM EDT) Final Diagnosis [id number] ? Location: 4T; EA10; A The signing pathologist has (i) examined the relevant preparation(s) for the specimen(s) and (ii) rendered or confirmed the diagnosis(es). . 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 B - Transverse polyp, resection: - ??Sessile serrated polyp/adenoma. Electronically signed by: ?Sierra SINHA PhD, Zahra Verified: ??09/16/2021 12:39 ??Pathologist Performed at: ??-[facility] Dept. of Pathology, [place], [place] SPECIMEN(S) SUBMITTED A - Cecal polyp, resection (1) B - Transverse polyp, resection (1) CLINICAL INFORMATION 76-year-old male surveillance colonoscopy SPECIMEN PROCESSING A - Labeled/Fixative : Cecal polyp, formalin. Quantity/Size: Multiple, averaging 0.2 cm. Tissue Description: Soft, harris-pink tissues. Sections/Process ing: Submitted en toto ??in 2 cassettes labeled A1-A2. B - Labeled/Fixative : Transverse polyp, formalin. Quantity/Size: Single, 1.5 x 0.4 x 0.1 cm. Tissue Description: Soft, pink tissue. Sections/Process ing: Quadrisected and entirely submitted in 1 cassette labeled B1. ??sns 09/16/2021 12:39 PM EDT [facility] GI Biopsy 09/12/2021 12:0 7 PM EDT 09/12/2021 12:07 PM EDT GI Biopsy 09/12/2021 12:0 7 PM EDT 09/12/2021 12:07 PM EDT Ashutosh Chang MD PATHOLOGY/CYTOLOG Y ORDERABLES Performing Organization Address [facility] [place] [address] * Specimen to Pathology (09/12/2021 12:07 PM EDT) AP Specimen 09/12/2021 12:0 7 PM EDT 09/12/2021 12:07 PM EDT Narrative [facility] - 09/12/2021 12:07 PM EDT Specimen requisition ordered. ??Separate Pathology report to follow Ashutosh Chang MD PATHOLOGY/CYTOLOG Y ORDERABLES Performing Organization Address [facility] [place] [address] * Specimen to Pathology (09/12/2021 12:07 PM EDT) AP Specimen 09/12/2021 12:0 7 PM EDT 09/12/2021 12:07 PM EDT Narrative [facility] - 09/12/2021 12:07 PM EDT Specimen requisition ordered. ??Separate Pathology report to follow Ashutosh Chang MD PATHOLOGY/CYTOLOG Y ORDERABLES Performing Organization Address [facility] [place] [address] * COLONOSCOPY (09/12/2021 11:24 AM EDT) COLONOSCOPY [facility] Endoscopy Procedure Date: 09/12/2021 11:24 AM ? Patient Name: Martha Pulliam ? Date of : 1945 ? Age: 76 ? Order #: [id number] ? Instrument Name: [id number] ? Procedure: ? Colonoscopy Indications: ? High risk colon cancer surveillance: ? Personal history of colonic polyps Patient Profile: ? This is a 76 year old male. Refer to ? note in patient chart for ? documentation of history and ? physical. Last Colonoscopy: 3 years ? ago. Providers: ? Ashutosh Chang MD, Wilma Irwin ? Katty Mojica Referring : ?Simi De La Fuente MD Medicines: ? Midazolam 3 mg IV, Fentanyl 75 ? micrograms IV Complications: ? No immediate complications. Procedure: ? Pre-Anesthesia Assessment: ? - Prior to the procedure, a History ? and Physical was performed, and ? patient medications and allergies ? were reviewed. The patient's ? tolerance of previous anesthesia was ? also reviewed. The risks and benefits ? of the procedure and the sedation ? options and risks were discussed with ? the patient. All questions were ? answered, and informed consent was ? obtained. Prior Anticoagulants: The ? patient has taken no previous ? anticoagulant or antiplatelet agents. ? ASA Grade Assessment: II - A patient ? with mild systemic disease. After ? reviewing the risks and benefits, the ? patient was deemed in satisfactory ? condition to undergo the procedure. ? The procedure, indications, benefits, ? risks and alternatives were explained ? to the patient. Specifically ? discussed were potential ? complications including, but not ? limited to, bleeding, perforation, ? infection, missing a cancer, and ? adverse medication reactions. The ? patient was placed in the left ? lateral decubitus position, and a ? digital rectal exam was performed. ? The Colonoscope was inserted in the ? anus and under direct visualization, ? advanced to the terminal ileum, with ? identification of the appendiceal ? orifice and IC valve. Careful ? inspection was made as the ? colonoscope was withdrawn. The ? colonoscopy was performed without ? difficulty. The patient tolerated the ? procedure well. The quality of the ? bowel preparation was evaluated using ? the BBPS ([employer] Bowel Preparation ? Scale) with scores of: Right Colon = ? 2 (minor amount of residual staining, ? small fragments of stool and/or ? opaque liquid, but mucosa seen well), ? Transverse Colon = 3 (entire mucosa ? seen well with no residual staining, ? small fragments of stool or opaque ? liquid) and Left Colon = 3 (entire ? mucosa seen well with no residual ? staining, small fragments of stool or ? opaque liquid). The total BBPS score ? equals 8. The terminal ileum, ? ileocecal valve, appendiceal orifice, ? and rectum were photographed. Scope ? withdrawal time was 10 minutes. ? Findings: ? Hemorrhoids were found on perianal exam. ? Many small and large-mouthed diverticula were found ? in the sigmoid colon. ? The terminal ileum appeared normal. ? A 8 mm polyp was found in the cecum. The polyp was ? sessile. The polyp was removed with a cold snare. ? Resection and retrieval were complete. ? A 5 mm polyp was found in the transverse colon. The ? polyp was flat. The polyp was removed with a cold ? snare. Resection and retrieval were complete. ? The exam was otherwise without abnormality on direct ? and retroflexion views. ? Moderate Sedation: ? Moderate (conscious) sedation was administered by the ? endoscopy nurse and supervised by the endoscopist. ? The patient's oxygen saturation, heart rate, blood ? pressure and response to care were monitored. ? I was present during the intraservice time as ? documented by the sedation RN. Impression: ?- Hemorrhoids found on perianal exam. ? - Diverticulosis in the sigmoid colon. ? - The examined portion of the ileum ? was normal. ? - One 8 mm polyp in the cecum, ? removed with a cold snare. Resected ? and retrieved. ? - One 5 mm polyp in the transverse ? colon, removed with a cold snare. ? Resected and retrieved. ? - The examination was otherwise ? normal on direct and retroflexion ? views. Recommendation: ?- Consider a Repeat colonoscopy in 5 ? years for surveillance. ? Attending Participation: ? I personally performed the entire procedure. ? I was present during the intraservice time as ? documented by the sedation RN. ? Dr. Nirmal Chang ___ Ashutosh Chang MD 09/12/2021 12:14:19 PM Number of Addenda: 0 Note Initiated On: 09/12/2021 11:24 AM PROVATION 09/12/2021 11:2 4 AM EDT Simi De La Fuente MD GENERAL SURGICAL ORD ERABLES Performing Organization Address City/State/[facility] Co de Phone Number [employer] documented in this encounter Visit Diagnoses Not on filedocumented in this encounter Active and Recently Administered Medications Times are shown in EDT. Continuous Medication Order 09/10/2021 09/11/2021 09/12/2021 lactated ringers infusion (CANCELED) 100 mL/hr, Intravenous, CONTINUOUS, Starting on Catina 09/12/21 at 1100, Until Catina 09/12/21 at 1311, Endoscopy (Day of Procedure) 1100 (Due)1140 (New Bag - Provider: Katty Nolan, RN) PRN Medication Order 09/10/2021 09/11/2021 09/12/2021 fentaNYL (pf) (50 mcg/mL) multi-dose injection (CANCELED) ONCE PRN, Starting on Catina 09/12/21 at 1140, Until Catina 09/12/21 at 1520, Intra-Operative (Intra-Procedure), Routine 1140 (Given - Provid er: Katty Nolan RN)1143 (Given - Provider: Katty Nolan RN)1153 (Given - Provider: Katty Nolan, RN) midazolam (pf) (Versed) (1 mg/mL) multi-dose injection (CANCELED) ONCE PRN, Starting on Catina 09/12/21 at 1140, Until Catina 09/12/21 at 1520, Intra-Operative (Intra-Procedure), Routine 1140 (Given - Provid er: Katty Nolan, RN)1143 (Given - Provider: Katty Nolan, BRETT)1148 (Given - Provider: Katty Nolan, BRETT)1153 (Given - Provider: Katty Nolan, BRETT) documented in this encounter Care Teams Bin Filler Relationship Specialty Start Date End Date Simi De La Fuente MD [address] [place] [address] PCP - General General Internal Medicine 11/28/1604/29/23 documented as of this encounter
--- OUTSIDE RECORDS SUMMARY | 2024-06-07 09:46 | XMS_ITS | Encounter Summary ---
Author Organization [facility] [place] [address] Care Team Providers Care Photovoltaic Panel Installer Name Role Phone Karen Hall APRN Primary Care Provider [phone] Reason for Visit * Reason Comments Follow-up Encounter Details Date Type Department Care Team (Late st Contact Info) Description 08/07/2023 8:00 AM EST Office Visit Dermatology at [address] [place] [address] Melvin Ruiz MD [address] [place] [address], [place] [address] [place] (actinic keratosis) Social History Tobacco Use [...] Progress Notes * Melvin Ruiz MD - 08/07/2023 8:00 AM EST Problem: 1. Early yearly skin check 2. 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 I had treated this with liquid nitrogen but it then recurred. Physical examination reveals a hyperkeratotic scabbing area which has been partially excoriated. Itappears to be consistent with a possible early SCCA. Assessment plan: Rule out SCCA/BCCA left posterior parietal scalp 1. Today site was anesthetized and shave biopsy with C&D x 3 performed 2. Triple antibiotic ointment bandage placed. After curettage site measured 1 cm in diameter. 3. Wound care instruction supplies given. Will notify patient of biopsy results in 10 to 14 days 4. Return to clinic in April for his next yearly skin checkup. CC: Karen Hall APRN documented in this encounter Plan of Treatment Upcoming Encounters Date Type Department Care Team (Late st Contact Info) Description 05/09/2025 10:45 AM EST Office Visit Dermatology at [place] [address] [place] [address] Melvin Ruiz MD [address] [facility], [place] [address] 06/08/2025 3:00 PM EST [place] [address] Irina Kaufman OD [facility] [place] [address] documented as of this encounter Visit Diagnoses Diagnosis [place] (actinic keratosis) Actinic keratosis documented in this encounter Care Teams Photovoltaic Panel Installer Relationship Specialty Start Date End Date Karen Hall APRN [address] [place] [address] PCP - General Geriatric Medicine 04/30/23 documented as of this encounter
--- OUTSIDE RECORDS SUMMARY | 2024-06-07 09:46 | XMS_ITS | Encounter Summary ---
[place] [address] Care Team Providers Care Retail Account Specialist Name Role Phone Simi De La Fuente MD Primary Care Provider [phone] Reason for Visit * Reason Comments Annual Exam Encounter Details Date Type Department Care Team (Late st Contact Info) Description 04/28/2022 2:00 PM EST Office Visit Dermatology at [address] [place] [address] Melvin Ruiz MD [address] [place] [address] RD, [place] [address] [place]; [place] (actinic keratosis) Social History Tobacco [...] Progress Notes * Melvin Ruiz MD - 04/28/2022 2:00 PM EST Problem: 1. ??Yearly skin check 2. 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 He has been doing well. He has not noted any new lesions of concern. Physical examination was a pleasant 76-year-old gentleman who has actinic keratosis 2 on the posterior parietal scalp and 1 on the left forehead. He has what appears to be a verruca vulgaris on the left antecubital fossa. Assessment plan: Actinic keratosis face and scalp 1. LN 2 x 2 applied each of 3 sites Verruca vulgaris left antecubital fossa 1. Patient reassured 2. No treatment necessary CC: Simi De La Fuente MD documented in this encounter Plan of Treatment Upcoming Encounters Date Type Department Care Team (Late st Contact Info) Description 05/09/2025 10:45 AM EST Office Visit Dermatology at [place] [address] [facility] [place] [address] Melvin Ruiz MD [address] [facility] [address], [place] [address] 06/08/2025 3:00 PM EST Office [place] [address] Irina Kaufman OD [facility] [place] [address] documented as of this encounter Visit Diagnoses Diagnosis Nevus Benign neoplasm of skin, site unspecified [place] (actinic keratosis) Actinic keratosis documented in this encounter Care Teams Retail Account Specialist Relationship Specialty Start Date End Date Simi De La Fuente MD [address] [place] [address] PCP - General General Internal Medicine 11/28/1604/29/23 documented as of this encounter
--- OUTSIDE RECORDS SUMMARY | 2024-06-07 09:46 | XMS_ITS | Encounter Summary ---
Author Organization [facility] [place] [address] Care Team Providers Care Insurance Loss Assessor Name Role Phone Karen Hall APRN Primary Care Provider [phone] Encounter Details Date Type Department Care Team (Latest Contact Info) Description 08/07/2023 Travel Social History Tobacco Use Types Packs/Day [...] 10:45 AM EST Office Visit Dermatology at [address] [place] [address] Melvin Ruiz MD [address] [place] [address] RD, [place] [address] 06/08/2025 3:00 PM EST Office [place] [address] Irina Kaufman OD [facility] [place] [place] [address] documented as of this encounter Visit Diagnoses Not on filedocumented in this encounter Care Teams Insurance Loss Assessor Relationship Specialty Start Date End Date Karen Hall APRN [address] [place] [address] PCP - General Geriatric Medicine 04/30/23 documented as of this encounter
--- OUTSIDE RECORDS SUMMARY | 2024-06-07 09:46 | XMS_ITS | Encounter Summary ---
Author Organization [facility] [place] [address] Care Team Providers Care Canal Driver Name Role Phone Karen Hall APRN Primary Care Provider [phone] Encounter Details Date Type Department Care Team (Late st Contact Info) Description 08/19/2023 Telephone Dermatology at [address] [address] Rajani Díaz LPN Social History Tobacco Use Types Packs/Day Years Used Date Smoking Tobacco: Never Smokeless Tobacco: Never Alcohol Use Standard Drinks/Week Comments No 0 (1 standard drink = 0.6 oz pur e alcohol) Sex and Gender Information Value Date Recorded Sex Assigned at Not on file Gender Identity Not on file Sexual Orientation Not on file documented as of this encounter Miscellaneous Notes * Telephone Encounter - Rajani Díaz LPN - 08/19/2023 1:38 PM EST 08/07/23 Left posterior parietal scalp skin shave biopsy Diagnosis: 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 Sanon recommendations with patient. He voiced understanding. documented in this encounter Plan of Treatment Upcoming Encounters Date Type Department Care Team (Late st Contact Info) Description 05/09/2025 10:45 AM EST Office Visit Dermatology at [address] [address] Melvin Ruiz MD [address] [place] [address] RD, K[place] [address] 06/08/2025 3:00 PM EST Office [place] [address] Irina Kaufman, [facility] [place] [address] documented as of this encounter Visit Diagnoses Not on filedocumented in this encounter Care Teams Canal Driver Relationship Specialty Start Date End Date Karen Hall APRN [address] [place] [address] PCP - General Geriatric Medicine 04/30/23 documented as of this encounter
--- OUTSIDE RECORDS SUMMARY | 2024-06-07 09:46 | XMS_ITS | Encounter Summary ---
Author Organization [facility] [place] [address] Care Team Providers Care Director Of Rooms Name Role Phone Simi De La Fuente MD Primary Care Provider [phone] Encounter Details Date Type Department Care Team (Latest Contact Info) Description 04/28/2022 Travel Social History Tobacco Use Types Packs/Day [...] 10:45 AM EST Office Visit Dermatology at [address] [place] [address] Melvin Ruiz MD [address] [place] [address], [place] [address] 06/08/2025 3:00 PM EST Office [place] [address] Irina Kaufman OD [facility] [place] [address] documented as of this encounter Visit Diagnoses Not on filedocumented in this encounter Care Teams Director Of Rooms Relationship Specialty Start Date End Date Simi De La Fuente MD [address] [place] [address] PCP - General General Internal Medicine 11/28/1604/29/23 documented as of this encounter
--- OUTSIDE RECORDS SUMMARY | 2024-06-07 09:46 | XMS_ITS | Encounter Summary ---
[place] [address] Care Team Providers Care Selvage Machine Operator Name Role Phone Simi De La Fuente MD Primary Care Provider [phone] Reason for Visit * Auth/Cert Specialty Diagnoses / Procedures Referred By Contac t Referred To Contact Diagnoses Encounter for screening colonoscopy 3 YEAR SCREENING Procedures PRO COLONOSCOPY, DIAGNOSTIC PRO COLONOSCOPY, BIOPSY PRO COLONOSCOPY, REMV LESN, SNARE COLONOSCOPY, DIAGNOSTIC Referral ID Status Reason Start Date Expiration Date Visits Re quested Visits Authorized [id number] 1 1 Encounter Details Date Type Department Care Team (Late st Contact Info) Description 09/12/2021 10:30 AM EDT - 09/12/2021 11:15 AM EDT Surgery [place] [address] Ashutosh Chagn MD [facility] [place] [address] COLONOSCOPY, POLYPECTOMY, REMOVAL LESION BY SNARE (WRVU 4.57) Social History Tobacco Use Types Packs/Day Years [...] Sign Reading Time Taken Comments Blood Pressure 122/70 09/12/2021 9:47 AM EDT Pulse 68 09/12/2021 9:47 AM EDT Temperature - - Respiratory Rate - - Oxygen Saturation 99% 09/12/2021 9:47 AM EDT Inhaled Oxygen Concentration - - Weight [...] occurs, please contact your Doctor. Please call [phone] before 8pm Mon-Fri with problems, questions or concerns. If you call after 8pm or on weekends, call the Hospital at [phone] and ask to speak to the Superintendent Laundry motel front desk clerk and the asphalt plant operator will contact that person for you. When should you call for help? Call [phone] anytime you think you may need emergency [...] any problems. Where can you learn more? [facility] View your After Visit Summary and more online at [email or web address] If you would like to provide feedback [...] cost to you. Content Version: 12.2 ?? [id number] [employer]. Care instructions adapted under license by [facility]. If you have questions about a medical condition or this instruction, always ask your healthcare professional. [employer] disclaims any warranty or liability for your [...] complication. Informed Consent signed by patient (or malt liquors sales representative). documented in this encounter Plan of Treatment Upcoming Encounters Date Type Department Care Team (Late st Contact Info) Description 05/09/2025 10:45 AM EST Office Visit Dermatology at [place] [address] [place] [address] Melvin Ruiz MD [address], [place] [address] 06/08/2025 3:00 PM EST Office [place] [address] Irina Kaufman OD [facility] [place] [address] documented as of this encounter Procedures Procedure Name Priority Date/Time Associated Diagnosis Comments SURGICAL PATHOLOGY REPORT Routine 09/12/2021 12:07 PM EDT SPECIMEN TO PATHOLOGY Routine 09/12/2021 12:07 PM EDT SPECIMEN TO PATHOLOGY Routine 09/12/2021 12:07 PM EDT Colonoscopy, Erma Gallardo ([id number]) 09/12/2021 11:37 AM EDT 3 YEAR SCREENING COLONOSCOPY Routine 09/12/2021 11:24 AM EDT documented in this encounter Results * Surgical Pathology Report (09/12/2021 12:07 PM EDT) Final Diagnosis [id number] ? Location: 4T; EA10; A The signing pathologist has (i) examined the relevant preparation(s) for the specimen(s) and (ii) rendered or confirmed the diagnosis(es). . 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 B - Transverse polyp, resection: - ??Sessile serrated polyp/adenoma. Electronically signed by: ?Sierra SINHA PhD, Zahra Verified: ??09/16/2021 12:39 ??Pathologist Performed at: ??-[facility] Dept. of Pathology, [place], [place] SPECIMEN(S) SUBMITTED A - Cecal polyp, [...] labeled B1. ??sns 09/16/2021 12:39 PM EDT [facility] GI Biopsy 09/12/2021 12:0 7 PM EDT 09/12/2021 12:07 PM EDT GI Biopsy 09/12/2021 12:0 7 PM EDT 09/12/2021 12:07 PM EDT Ashutosh Chang MD PATHOLOGY/CYTOLOG Y ORDERABLES Performing Organization Address [facility] [place] [address] * Specimen to Pathology (09/12/2021 12:07 PM EDT) AP Specimen 09/12/2021 12:0 7 PM EDT 09/12/2021 12:07 PM EDT Narrative [facility] - 09/12/2021 12:07 PM EDT Specimen requisition ordered. ??Separate Pathology report to follow Ashutosh Chang MD PATHOLOGY/CYTOLOG Y ORDERABLES Performing Organization Address [facility] [place] [address] * Specimen to Pathology (09/12/2021 12:07 PM EDT) AP Specimen 09/12/2021 12:0 7 PM EDT 09/12/2021 12:07 PM EDT Narrative [facility] - 09/12/2021 12:07 PM EDT Specimen requisition ordered. ??Separate Pathology report to follow Ashutosh Chang MD PATHOLOGY/CYTOLOG Y ORDERABLES Performing Organization Address [facility] [place] [address] * COLONOSCOPY (09/12/2021 11:24 AM EDT) COLONOSCOPY [facility] Endoscopy Procedure Date: 09/12/2021 11:24 AM ? Patient Name: Martha Pulliam ? Date of : 1945 ? Age: 76 ? Order #: [id number] ? Instrument Name: [id number] ? Procedure: ? Colonoscopy Indications: ? High [...] preparation was evaluated using ? the BBPS (orderTalk Bowel Preparation ? Scale) with scores of: [...] GENERAL SURGICAL ORD ERABLES Performing Organization Address City/State/[facility] Co de Phone Number [place] documented in this encounter Visit Diagnoses Not on filedocumented in this encounter Administered Medications Inactive Administered Medications - up to 3 most recent administrations Medication Order MAR Action Action Date Dose Rate Site fentaNYL (pf) (50 mcg/mL) multi-dose injection ONCE PRN, Starting on Catina 09/12/21 at 1140, Until Catina 09/12/21 at 1520, Intra-Operative (Intra-Procedure), Routine Given 09/12/2021 11:53 AM EDT 25 mcg Given 09/12/2021 11:43 AM EDT 25 mcg Given 09/12/2021 11:40 AM EDT 25 mcg lactated ringers infusion 100 mL/hr, Intravenous, CONTINUOUS, Starting on Catina 09/12/21 at 1100, Until Catina 09/12/21 at 1311, Endoscopy (Day of Procedure) New Bag 09/12/2021 11:40 AM EDT 100 mL/hr 100 mL/hr midazolam (pf) (Versed) (1 mg/mL) multi-dose injection ONCE PRN, Starting on Catina 09/12/21 at 1140, Until Catina 09/12/21 at 1520, Intra-Operative (Intra-Procedure), Routine Given 09/12/2021 11:53 AM EDT 0.5 mg Given 09/12/2021 11:48 AM EDT 0.5 mg Given 09/12/2021 11:43 AM EDT 1 mg documented in this encounter Active and Recently Administered Medications Times are shown in EDT. Continuous Medication Order 09/10/2021 09/11/2021 09/12/2021 lactated ringers infusion (CANCELED) 100 mL/hr, Intravenous, CONTINUOUS, Starting on Catina 09/12/21 at 1100, Until Catina 09/12/21 at 1311, Endoscopy (Day of Procedure) 1100 (Due)1140 (New Bag - Provider: Katty Nolan RN) PRN Medication Order 09/10/2021 09/11/2021 09/12/2021 fentaNYL (pf) (50 mcg/mL) multi-dose injection (CANCELED) ONCE PRN, Starting on Catina 09/12/21 at 1140, Until Catina 09/12/21 at 1520, Intra-Operative (Intra-Procedure), Routine 1140 (Given - Provid er: Katty Nolan RN)1143 (Given - Provider: Katty Nolan RN)1153 (Given - Provider: Katty Nolan RN) midazolam (pf) (Versed) (1 mg/mL) multi-dose injection (CANCELED) ONCE PRN, Starting on Catina 09/12/21 at 1140, Until Catina 09/12/21 at 1520, Intra-Operative (Intra-Procedure), Routine 1140 (Given - Provid er: Katty Nolan RN)1143 (Given - Provider: Katty Nolan RN)1148 (Given - Provider: Katty Nolan RN)1153 (Given - Provider: Katty Nolan RN) documented in this encounter Care Teams Selvage Machine Operator Relationship Specialty Start Date End Date Simi De La Fuente MD [address] [facility] [place] [address] PCP - General General Internal Medicine 11/28/1604/29/23 documented as of this encounter
--- OUTSIDE RECORDS SUMMARY | 2024-06-07 09:46 | XMS_ITS | Encounter Summary ---
Author Organization [facility] [place] [address] Care Team Providers Care Drywall Sander Name Role Phone Simi De La Fuente MD Primary Care Provider [phone] Encounter Details Date Type Department Care Team (Late st Contact Info) Description 03/26/2022 12:05 AM EDT Ancillary Procedure Radiology Library at [facility] [place] [address] Simi De La Fuente MD [address] [place] [phone] Social History Tobacco Use Types Packs/Day Years [...] Encounters Date Type Department Care Team (Late Contact Info) Description 05/09/2025 10:45 AM EST Office Visit Dermatology at [place] [address] [facility] [address] [place] [address] Melvin Ruiz MD [address] [facility], [place] [address] 06/08/2025 3:00 PM EST Office Visit Ophthalmology at [facility] [place] [address] Irina Kaufman OD [facility] [place] [address] documented as of this encounter Procedures Procedure Name Priority Date/Time Associated Diagnosis Comments FILM LIBRARY STORAGE ONLY DX LOWER EXTREMITY Routine 03/26/2022 12:05 AM EDT documented in this encounter Results * Film Library- Storage Only DX Lower Extremity (03/26/2022 12:05 AM EDT) Narrative [facility] 05/19/2022 4:18 PM EST This exam is auto-finalizing. It's purpose is for storage only. Simi De La Fuente MD IMG FILM LIBRARY ORD ERABLES [place], [place] documented in this encounter Visit Diagnoses Not on filedocumented in this encounter Care Teams Drywall Sander Relationship Specialty Start Date End Date Simi De La Fuente MD [address] [place] [address] PCP - General General Internal Medicine 11/28/1604/29/23 documented as of this encounter
--- OUTSIDE RECORDS SUMMARY | 2024-06-07 09:46 | XMS_ITS | Encounter Summary ---
Author Organization [facility] [place] [address] Care Team Providers Care Deputy City Clerk Name Role Phone Karen Hall APRN Primary Care Provider [phone] Encounter Details Date Type Department Care Team (Latest Contact Info) Description 04/30/2023 Travel Social History Tobacco Use Types Packs/Day [...] 10:45 AM EST Office Visit Dermatology at [address] [place] [address] Melvin Ruiz MD [address] [place] [address] RD, [place] [address] 06/08/2025 3:00 PM EST Office Visit [place] [address] Irina Kaufman OD [facility] [place] [address] documented as of this encounter Visit Diagnoses Not on filedocumented in this encounter Care Teams Deputy City Clerk Relationship Specialty Start Date End Date Karen Hall APRN [address] [place] [address] PCP - General Geriatric Medicine 04/30/23 documented as of this encounter
--- OUTSIDE RECORDS SUMMARY | 2024-06-07 09:46 | XMS_ITS | Encounter Summary ---
Author Organization [facility] [place] [address] Care Team Providers Care Recycling Director Name Role Phone Simi De La Fuente MD Primary Care Provider [phone] Encounter Details Date Type Department Care Team (Late st Contact Info) Description 03/16/2018 9:57 AM EDT - 03/16/2018 12:58 PM EDT Hospital Encounter [place] [address] Ashutosh Chang MD [facility] [place] [address] Discharge Disposition: Home Social History Tobacco Use [...] Sign Reading Time Taken Comments Blood Pressure 133/82 03/16/2018 12:30 PM EDT Pulse 56 03/16/2018 12:05 PM EDT Temperature 36.7 ??C (98.1 ??F) 03/16/2018 10:48 AM E DT Respiratory Rate 16 03/16/2018 12:30 PM EDT Oxygen Saturation 97% 03/16/2018 12:30 PM EDT Inhaled Oxygen Concentration - - Weight - - Height - - Body Mass Index - - documented in this encounter Discharge Instructions * Discharge Instructions* Cathie Beaulieu RN - 03/16/2018 12:18 PM EDT Colonoscopy and polyp removal What to expect after the procedure You may feel a little more gassy or bloated than usual, this is normal. You should expect the return of normal bowel function in the next 2 to 3 days. Because some polyps were removed, you may see a little blood with the next few bowel movements, this should be a small amount ( less than a few tablespoons) and will resolve on it's own. ACTIVITY Because of the sedation that you received Your judgement and reaction time are effected ?? Go home and rest for the remainder for the day. You may resume your normal activities tomorrow ?? Change from one position to the next slowly because you may lose your balance unexpectedly. ?? Be careful on stairs, as you may be unsteady. FOR THE NEXT 24 HRS ?? DO NOT DRIVE OR OPERATE MACHINERY ?? DO NOT DRINK ALCOHOLIC BEVERAGES ?? DO NOT SIGN LEGAL DOCUMENTS ?? If you are a smoker: DO NOT SMOKE WHILE YOU ARE ALONE Diet ?? Start by eating small portions of foods that ordinarily will not upset your stomach, avoid gas producing foods for the next few days. ?? Be gentle with what you choose to start with ?? Drink plenty of fluids ( unless your doctor has told you not to). Medicines Avoid medicines that influence the way your blood clots for the next week. These would include anti-inflammatory medicine, such as ibuprofen( Advil, Motrin) and naproxen ( Aleve). If you need something for discomfort, Tylenol (Acetaminophen) is safe if used as directed. Your Doctor will tell you when to restart your prescribed blood thinners The IV site-- slight tenderness, or redness is normal, you can use warm compresses if you get concerned. If the tenderness +/or redness increases or foul drainage and a red streak occurs, please contact your PCP immediately. When should you call for help? Call 911 anytime you think you may need emergency care. For example If you pass out (loss of consciousness) If you pass maroon or bloody stools If you have severe belly pain Call your healthcare provider or seek immediate medical care if: Your stools are black or tar like Your stools have streaks of blood that is more pronounced with each BM You have belly pain, or your belly is swollen and firm You vomit You have a fever You are very dizzy Watch closely for changes in your health, and be sure to contact your doctor if you have any problems. Your Doctor will let you know when you will need your next colonoscopy. The results of your test and your risk for colorectal cancer will help your doctor decide how often you need to be checked. Thursday-Thursday Same Day Endo [phone] 7a-8p Otherwise contact [phone] and ask to speak to the anesthesiologists' assistant offshore wind operations manager Follow up care is a cagle part of your treatment and safety. Be sure to make and go to all appointments, and call your doctor if you are having problems. Discharge instructions reviewed with patient who expresses understanding documented in this encounter Medications at Time of Discharge Medication Sig Dispensed Refills Start Date End Date atorvastatin (Lipitor) 40 mg Tablet Daily 09/22 losartan (COZAAR) 50 mg Tablet Daily 11/17/2012 documented as of this encounter H&P Notes * Ashutosh Chang MD - 03/16/2018 11:05 AM EDT Patient Name: Martha Pulliam Patient Age: 72 y.o. Birthdate: 1945 Admit date: 03/16/2018 Attending Physician: Ashutosh Chang MD Gastroenterology & Hepatology Pre-Procedure History and Physical Planned Procedure: Colonoscopy: Indication: surveillance Patient Active Problem List Diagnosis Code ??? CIS - bilateral wrist pain ??? CIS - Entered not Verified ??? 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 No changes Exam: Most Recent Vitals: 03/16/18 1048 BP: 162/88 Pulse: 57 Resp: 16 Temp: 36.7 ??C (98.1 ??F) SpO2: 97% GEN: NAD, AAOX3 HEENT: NC/AT dryMM, anicteric Chest: CTAB Heart: RRR, nl s1, s2 Abdomen: normal bowel sounds, soft, non tender Assessment and Plan: Proceed with Colonoscopy: ASA Grade: ASA 2 - Patient with mild systemic disease with no functional limitations Mallampati: I (soft palate, uvula, fauces, tonsillar pillars visible) Sedation plan: Moderate Conscious sedation Risks and benefits of the procedure were discussed with the patient. Consent has been signed. documented in this encounter Plan of Treatment Upcoming Encounters Date Type Department Care Team (Late st Contact Info) Description 05/09/2025 10:45 AM EST Office Visit Dermatology at [place] [address] [facility] [address] [place] [address] Melvin Ruiz MD [address] [facility], [address] [place] [address] 06/08/2025 3:00 PM EST Office [place] [address] Irina Kaufman OD [facility] [place] [address] documented as of this encounter Procedures Procedure Name Priority Date/Time Associated Diagnosis Comments SPECIMEN TO PATHOLOGY Routine 03/16/2018 12:08 PM EDT SPECIMEN TO PATHOLOGY Routine 03/16/2018 12:08 PM EDT SPECIMEN TO PATHOLOGY Routine 03/16/2018 12:08 PM EDT SURGICAL PATHOLOGY REPORT Routine 03/16/2018 11:41 AM EDT COLONOSCOPY; W CONTROL OF BLEEDING, ANY METHOD (WRVU 4.66) 03/16/2018 11:20 AM EDT 5 yr surv. COLONOSCOPY, POLYPECTOMY, REMOVAL LESION BY SNARE (WRVU 4.57) 03/16/2018 11:20 AM EDT 5 yr surv. COLONOSCOPY Routine 03/16/2018 11:09 AM EDT documented in this encounter Results * Specimen to Pathology (03/16/2018 12:08 PM EDT) AP Specimen 03/16/2018 12:0 8 PM EDT 03/16/2018 12:08 PM EDT Narrative [facility] - 03/16/2018 12:08 PM EDT Specimen requisition ordered. ??Separate Pathology report to follow Ashutosh Chang MD PATHOLOGY/CYTOLOG Y ORDERABLES Performing Organization Address [facility] [place] [address] * Specimen to Pathology (03/16/2018 12:08 PM EDT) AP Specimen 03/16/2018 12:0 8 PM EDT 03/16/2018 12:08 PM EDT Narrative [facility] - 03/16/2018 12:08 PM EDT Specimen requisition ordered. ??Separate Pathology report to follow Ashutosh Chang MD PATHOLOGY/CYTOLOG Y ORDERABLES Performing Organization Address [facility] Co de Phone Number [place] [phone] * Specimen to Pathology (03/16/2018 12:08 PM EDT) AP Specimen 03/16/2018 12:0 8 PM EDT 03/16/2018 12:08 PM EDT [facility] - 03/16/2018 12:08 PM EDT Specimen requisition ordered. ??Separate Pathology report to follow Ashutosh Chang MD PATHOLOGY/CYTOLOG Y ORDERABLES Performing Organization Address [facility] [place] [address] * Surgical Pathology Report (03/16/2018 11:41 AM EDT) Final Diagnosis [id number] ? Location: 4T; EA09; A The signing pathologist has (i) examined the relevant preparation(s) for the specimen(s) and (ii) rendered or confirmed the diagnosis(es). . ?Surgical Pathology DIAGNOSIS A - Ascending colon, ?? polypectomy: - Sessile serrated polyp/adenoma. B - Transverse colon, ?? polypectomy: - Tubular adenoma. C - Descending colon, ?? polypectomy: - Hyperplastic polyp. CR-PX Electronically signed by: ??Antelmo Gilbert MD Verified: ??03/18/2018 ?Pathologist Performed at: ??-[facility] Dept. of Pathology, [place], [place] CLINICAL INFORMATION Specimen Submitted: A - 1 cm ascending colon polyp B - Transverse colon polyp x 2 C - Descending polyp x 1 Clinical History and Diagnosis: Surveillance SPECIMEN PROCESSING A - Labeled/Fixative : 1 cm ascending colon polyp, formalin. Quantity/Size: ??Single, 0.8 x 0.6 x 0.3 cm. Tissue Description: Soft but firm, harris-pink to brownish red polyp. Sections/Process ing: Inked, trisected and entirely submitted in 1 cassette labeled A1. B - Labeled/Fixative : Transverse colon polyp x2, formalin. Quantity/Size: ??Two, 0.3 and 0.7 cm. Tissue Description: Soft, harris-white to harris-yellow polypoid tissue. Sections/Process ing: Submitted en toto ??in 1 cassette labeled B1. C - Labeled/Fixative : Descending polyp x1, formalin. Quantity/Size: ??Two, 0.3 and 0.9 cm. Tissue Description: Soft, harris-yellow polypoid tissue. Sections/Process ing: Submitted en toto ??in 1 cassette labeled C1. ??apb 03/18/2018 3:58 PM EDT [facility] GI Biopsy 03/16/2018 11:4 1 AM EDT 03/16/2018 11:41 AM EDT GI Biopsy 03/16/2018 11:4 1 AM EDT 03/16/2018 11:41 AM EDT GI Biopsy 03/16/2018 11:4 1 AM EDT 03/16/2018 11:41 AM EDT Ashutosh Chang MD PATHOLOGY/CYTOLOG Y ORDERABLES [facility] [place] [address] * COLONOSCOPY (03/16/2018 11:09 AM EDT) COLONOSCOPY [facility] Endoscopy Procedure Date: 03/16/2018 11:09 AM ? Patient Name: Martha Pulliam ? N: [id number] ? Date of : 1945 ? Age: 72 ? Order #: [id number] ? Instrument Name: [id number] ? Procedure: ? Colonoscopy Indications: ? High risk colon cancer surveillance: ? Personal history of colonic polyps Patient Profile: ? This is a 72 year old male. Refer to ? note in patient chart for ? documentation of history and ? physical. Last Colonoscopy: 2012. Providers: ? Ashutosh Chang MD, Elyssa ? BRETT Mccarthy, Finn Greene MD: ?Simi De La Fuente MD Medicines: ? Midazolam 3 mg IV, Fentanyl 150 ? micrograms IV Complications: ? No immediate [...] preparation was evaluated using ? the BBPS ([place]ison Bowel Preparation ? Scale) with scores of: [...] total BBPS score ? equals 8. The quality of the bowel ? preparation was excellent. The ? terminal ileum, ileocecal valve, ? appendiceal orifice, and rectum were ? photographed. Scope withdrawal time ? was 15 minutes exclusive of ? polypectomy. ? Findings: ? Hemorrhoids were found on perianal exam. ? Many small and large-mouthed diverticula were found ? in the sigmoid colon. ? A 6 mm polyp was found in the descending colon. The ? polyp was flat. The polyp was removed with a cold ? snare. Resection and retrieval were complete. ? Two sessile polyps were found in the transverse ? colon. The polyps were 5 to 6 mm in size. These ? polyps were removed with a cold snare. Resection and ? retrieval were complete. ? A 12 mm polyp was found in the ascending colon. The ? polyp was flat. Attempted cold snare resection but ? required addition of cautery and the polyp was ? removed with a hot snare. Resection and retrieval ? were complete. To prevent bleeding after the ? polypectomy, one hemostatic clip was successfully ? placed (MR conditional, [employer]). There was ? no bleeding during, or at the end, of the procedure. ? The terminal ileum appeared normal. ? Moderate Sedation: ? Moderate (conscious) sedation [...] Diverticulosis in the sigmoid colon. ? - One 6 mm polyp in the descending ? colon, removed with a cold snare. ? Resected and retrieved. ? - Two 5 to 6 mm polyps in the ? transverse colon, removed with a cold ? snare. Resected and retrieved. ? - One 12 mm polyp in the ascending ? colon, removed with a hot snare. ? Resected and retrieved. Clip (MR ? conditional) was placed. ? - The examined portion of the ileum ? was normal. Recommendation: ?- Await pathology results. ? - Repeat colonoscopy in 3 years for ? surveillance. ? - Hemoclip will fall off typically ? with 2 weeks to 2 months. ? Attending Participation: ? I personally performed the entire procedure. ? I was present during the intraservice time as ? documented by the sedation RN. ? Dr. Nirmal Chang ___ Ashutosh Chang MD 03/16/2018 12:18:42 PM Number of Addenda: 0 Note Initiated On: 03/16/2018 11:09 AM PROVATION 03/16/2018 11:0 9 AM EDT Simi De La Fuente MD GENERAL SURGICAL ORD ERABLES PROVATION documented in this encounter Visit Diagnoses Not on filedocumented in this encounter Administered Medications Inactive Administered Medications - up to 3 most recent administrations Medication Order MAR Action Action Date Dose Rate Site lactated Ringers infusion 100 mL/hr, Intravenous, CONTINUOUS, Starting on Thu03/16/18 at 1100, Until Thu03/16/18 at 1244, Endoscopy (Day of Procedure) New Bag 03/16/2018 11:00 AM EDT 100 mL/hr 100 mL/hr documented in this encounter Active and Recently Administered Medications Times are shown in EDT. Continuous Medication Order 03/14/2018 03/15/2018 03/16/2018 lactated Ringers infusion (CANCELED) 100 mL/hr, Intravenous, CONTINUOUS, Starting on 03/16/18 at 1100, Until 03/16/18 at 1244, Endoscopy (Day of Procedure) 1100 (New Bag - Prov ider: Abeba Shore RN) PRN Medication Order 03/14/2018 03/15/2018 03/16/2018 fentaNYL 50 mcg/mL multi-dose injection (CANCELED) ONCE PRN, Starting on e 03/16/18 at 1126, Until 03/16/18 at 1458, Intra-Operative (Intra-Procedure), Routine 1126 (Given - Provid er: Elyssa Mccarthy RN)1129 (Given - Provider: Elyssa Mccarthy RN)1132 (Given - Provider: Elyssa Mccarthy RN)1135 (Given - Provider: Elyssa Mccarthy RN) midazolam (PF) (VERSED) 1 mg/mL multi-dose injection (CANCELED) ONCE PRN, Starting on Thu03/16/18 at 1126, Until Thu03/16/18 at 1458, Intra-Operative (Intra-Procedure), Routine 1126 (Given - Provid er: Elyssa Mccarthy RN)1129 (Given - Provider: Elyssa Mccarthy RN)1132 (Given - Provider: Elyssa Mccarthy RN)1135 (Given - Provider: Elyssa Mccarthy RN) documented in this encounter Care Teams Recycling Director Relationship Specialty Start Date End Date Simi De La Fuente MD [address] [place] [address] PCP - General General Internal Medicine 11/28/1604/29/23 documented as of this encounter
--- OUTSIDE RECORDS SUMMARY | 2024-06-07 09:46 | XMS_ITS | Encounter Summary ---
Author Organization [facility] [place] [address] Care Team Providers Care Sales Department Manager Name Role Phone Simi De La Fuente MD Primary Care Provider [phone] Encounter Details Date Type Department Care Team (Late st Contact Info) Description 03/16/2018 11:00 AM EDT - 03/16/2018 12:00 PM EDT Surgery [place] [address] Ashutosh Chang MD [facility] [place] [address] COLONOSCOPY, POLYPECTOMY, REMOVAL LESION BY SNARE (WRVU [...] to be checked. Thursday-Thursday Same Day Endo [phone] 7a-8p Otherwise contact [phone] and ask to speak to the client relations representative education counselor Follow up care is a cagle part [...] 10:45 AM EST Office Visit Dermatology at [place] [address] [place] [address] Melvin Ruiz MD [address], [place] [address] 06/08/2025 3:00 PM EST Office [place] [address] Irina Kaufman OD [facility] [place] [address] documented as of this encounter Procedures Procedure [...] PM EDT 03/16/2018 12:08 PM EDT Narrative [facility] - 03/16/2018 12:08 PM EDT Specimen requisition ordered. ??Separate Pathology report to follow Ashutosh Chang MD PATHOLOGY/CYTOLOG Y ORDERABLES Performing Organization Address [facility]/[place] [address] * Specimen to Pathology (03/16/2018 12:08 PM EDT) AP Specimen 03/16/2018 12:0 8 PM EDT 03/16/2018 12:08 PM EDT Narrative [facility] - 03/16/2018 12:08 PM EDT Specimen requisition ordered. ??Separate Pathology report to follow Ashutosh Chang MD PATHOLOGY/CYTOLOG Y ORDERABLES Performing Organization Address [facility] [place] [place] [address] * Specimen to Pathology (03/16/2018 12:08 PM EDT) AP Specimen 03/16/2018 12:0 8 PM EDT 03/16/2018 12:08 PM EDT Narrative [facility] - 03/16/2018 12:08 PM EDT Specimen requisition ordered. ??Separate Pathology report to follow Ashutosh Chang MD PATHOLOGY/CYTOLOG Y ORDERABLES Performing Organization Address [facility] [place] [place] [address] * Surgical Pathology Report (03/16/2018 11:41 AM EDT) Final Diagnosis [id number] ? Location: 4T; EA09; A The signing [...] Gilbert MD Verified: ??03/18/2018 ?Pathologist Performed at: ??-[facility] Dept. of Pathology, [place], [place] CLINICAL INFORMATION Specimen Submitted: A - [...] labeled C1. ??apb 03/18/2018 3:58 PM EDT [facility] GI Biopsy 03/16/2018 11:4 1 AM EDT 03/16/2018 11:41 AM EDT GI Biopsy 03/16/2018 11:4 1 AM EDT 03/16/2018 11:41 AM EDT GI Biopsy 03/16/2018 11:4 1 AM EDT 03/16/2018 11:41 AM EDT Ashutosh Chang MD PATHOLOGY/CYTOLOG Y ORDERABLES [facility] [place] [address] * COLONOSCOPY (03/16/2018 11:09 AM EDT) Pathologist [facility] COLONOSCOPY [facility] Endoscopy Procedure Date: 03/16/2018 11:09 AM ? Patient Name: Martha Pulliam ? Date of : 1945 ? Age: 72 ? Order #: [id number] ? Instrument Name: [id number] ? Procedure: ? Colonoscopy Indications: ? High risk colon cancer surveillance: ? Personal history of colonic polyps Patient Profile: ? This is a 72 year old male. Refer to ? note in patient chart for ? documentation of history and ? physical. Last Colonoscopy: 2013. Providers: ? Ashutosh Chang MD, Elyssa ? [...] preparation was evaluated using ? the BBPS ([place]ain Bowel Preparation ? Scale) with scores of: [...] clip was successfully ? placed (MR conditional, [employer]). There was ? no bleeding during, or [...] Action Action Date Dose Rate Site fentaNYL 50 mcg/mL multi-dose injection ONCE PRN, Starting on Thu03/16/18 at 1126, Until Thu03/16/18 at 1458, Intra-Operative (Intra-Procedure), Routine Given 03/16/2018 11:35 AM EDT 25 mcg Right Arm Given 03/16/2018 11:32 AM EDT 25 mcg R ight Arm Given 03/16/2018 11:29 AM EDT 50 mcg R ight Arm lactated Ringers infusion 100 mL/hr, Intravenous, CONTINUOUS, Starting on e 03/16/18 at 1100, Until Thu03/16/18 at 1244, Endoscopy (Day of Procedure) New Bag 03/16/2018 11:00 AM EDT 100 mL/hr 100 mL/hr midazolam (PF) (VERSED) 1 mg/mL multi-dose injection ONCE PRN, Starting on e 03/16/18 at 1126, Until Thu03/16/18 at 1458, Intra-Operative (Intra-Procedure), Routine Given 03/16/2018 11:35 AM EDT 0.5 mg Right Arm Given 03/16/2018 11:32 AM EDT 0.5 mg R ight Arm Given 03/16/2018 11:29 AM EDT 1 mg R ight Arm documented in this encounter Active and Recently Administered Medications Times are shown in EDT. Continuous Medication Order 03/14/2018 03/15/2018 03/16/2018 lactated Ringers infusion (CANCELED) 100 mL/hr, Intravenous, CONTINUOUS, Starting on Thu03/16/18 at 1100, Until Thu03/16/18 at 1244, Endoscopy (Day of Procedure) 1100 (New Bag - Prov ider: Abeba Shore, BRETT) PRN Medication Order 03/14/2018 03/15/2018 03/16/2018 fentaNYL 50 mcg/mL multi-dose injection (CANCELED) ONCE PRN, Starting on Thu03/16/18 at 1126, Until e 03/16/18 at 1458, Intra-Operative (Intra-Procedure), Routine 1126 (Given - Provid er: Elyssa Mccarthy RN)1129 (Given - Provider: Elyssa Mccarthy RN)1132 (Given - Provider: Elyssa Mccarthy RN)1135 (Given - Provider: Elyssa Mccarthy RN) midazolam (PF) (VERSED) 1 mg/mL multi-dose injection (CANCELED) ONCE PRN, Starting on Thu03/16/18 at 1126, Until e 03/16/18 at 1458, Intra-Operative (Intra-Procedure), Routine 1126 (Given - Provid er: Elyssa Mccarthy RN)1129 (Given - Provider: Elyssa Mccarthy RN)1132 (Given - Provider: Elyssa Mccarthy RN)1135 (Given - Provider: Elyssa Mccarthy RN) documented in this encounter Care Teams Sales Department Manager Relationship Specialty Start Date End Date Simi De La Fuente MD [address] [place] [address] PCP - General General Internal Medicine 11/28/1604/29/23 documented as of this encounter
--- OUTSIDE RECORDS SUMMARY | 2024-06-07 09:46 | XMS_ITS | Encounter Summary ---
[place] [address] Care Team Providers Care Grain Blender Name Role Phone Karen Hall APRN Primary Care Provider [phone] Reason for Visit * Reason Comments Annual Exam Encounter Details Date Type Department Care Team (Late st Contact Info) Description 05/03/2024 10:15 AM EST Office Visit Dermatology at [address] [address] Melvin Ruiz MD [address] [place] [address], [place] [address] [place] (actinic keratosis); Nevus; History of SCC (squamous cell carcinoma) of skin Social History Tobacco Use Types Packs/Day Years [...] Progress Notes * Melvin Ruiz MD - 05/03/2024 10:15 AM EST Problem: 1. Yearly skin check 2. History of actinic keratoses 3. High school physics/science /banking teacher 4. 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 Kendall follows up for his yearly skin checkup. He has been doing well. He has not noted any new lesions of concern. The squamous cell treatment site in the left posterior parietal scalp is healed beautifully. Physical examination reveals a pleasant 78-year-old gentleman has 3 actinic keratoses in the frontal parietal scalp just above his forehead. Otherwise examination of the head and the neck the chest the back the hands arms forearms thighs and calves is benign. There is no evidence of any cutaneous malignancies today. Assessment and plan: Actinic keratosis upper forehead/frontal parietal scalp 1. LN 2 x 2 applied to each of 3 sites 2. Return to clinic in a year for repeat check. 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 No evidence of recurrence 2. Patient reassured CC: Karen Hall APRN documented in this encounter Plan of Treatment Upcoming Encounters Date Type Department Care Team (Late st Contact Info) Description 05/09/2025 10:45 AM EST Office Visit Dermatology at [place] [address] [facility] [place] [address] Melvin Ruiz MD [address] [facility], [place] [address] 06/08/2025 3:00 PM EST Office [place] [address] [facility] [place] [address] documented as of this encounter Visit Diagnoses Diagnosis AK (actinic keratosis) Actinic keratosis Nevus Benign neoplasm of skin, site unspecified History of SCC (squamous cell carcinoma) of skin Personal history of other malignant neoplasm of skin documented in this encounter Care Teams Grain Blender Relationship Specialty Start Date End Date Karen Hall APRN [address] [place] [address] PCP - General Geriatric Medicine 04/30/23 documented as of this encounter
--- OUTSIDE RECORDS SUMMARY | 2024-06-07 09:46 | XMS_ITS | Encounter Summary ---
[place] [address] Care Team Providers Care Herb Digger Name Role Phone Simi De La Fuente MD Primary Care Provider [phone] Encounter Details Date Type Department Care Team (Late st Contact Info) Description 08/09/2021 Telephone [place] [phone] Brooklynn September Social History Tobacco Use Types Packs/Day Years [...] encounter Miscellaneous Notes * Telephone Encounter - Brooklynn September - 08/09/2021 11:22 AM EST Martha Pulliam [id number] Diagnosis/Indication: 3 year surv from 03/16/18 Overdue 1. Have you ever had a/an Colonoscopy before? Yes: Date 03/16/2018 If yes, did you have any problems with the procedure? No What type of sedation was used: IV Conscious Sedation 2. Do you take any blood thinners or have you been diagnosed with a bleeding disorder that increases your risk of bleeding with procedures? No 3. Do you have a Pacemaker or Defibrillator device? No 4. Are you a diabetic? No 5. Do you have any Allergies to Eggs, Latex or Medications? Yes: see edh 6. Do you take any Oral Iron Supplements (Including multi-vitamins)? Yes (Multivitamin) 7. Do you have a history of three or more abdominal surgeries? No 8. Have you had a problem with sedation or anesthesia? No 9. Do you use a c-pap machine or oxygen tank? Neither 10. Do you take prescription narcotic pain medications, including suboxone or methodone? No 11. Do you have a preference regarding the gender of your provider? No Preference 12. Is there any other information you would like to us to note for the provider and nursing team who will perform your case? No 13. Say to patient: You must have a responsible constitution party who will drive you to your procedure, stay [place] for the entire duration of your procedure, and drive you home from your procedure? Age:75 y.o. Height 58 Weight - 200 BMI 30.4 documented in this encounter Plan of Treatment Upcoming Encounters Date Type Department Care Team (Late st Contact Info) Description 05/09/2025 10:45 AM EST Office Visit Dermatology at [place] [address] [facility] [place] [address] Melvin Ruiz MD [address], [place] [address] 06/08/2025 3:00 PM EST Office [place] [address] Irina Kaufman OD [facility] [place] [address] documented as of this encounter Visit Diagnoses Not on filedocumented in this encounter Care Teams Herb Digger Relationship Specialty Start Date End Date Simi De La Fuente MD [address] [place] [address] PCP - General General Internal Medicine 11/28/1604/29/23 documented as of this encounter
--- OUTSIDE RECORDS SUMMARY | 2024-06-07 09:46 | XMS_ITS | Clinical Summary ---
Author Organization [facility] [place] [address] Care Team Providers Care Carousel Attendant Name Role Phone Karen Hall ALISSA Primary Care Provider [phone] Allergies Active Allergy Reactions Criticality Noted Date Comments Lisinopril 04/26/2021 Cough Medications Medication Sig Dispensed Refills Start Date End Date Status atorvastatin (Lipitor) 40 mg Tablet Daily 09/22/2012 Active losartan (COZAAR) 50 mg Tablet Daily 11/17/2012 Active sildenafil (VIAGRA) 100 mg Tablet Take 1 tablet by mouth daily. 1 04/23/2018 Active artificial tear (TEARS) Drops 1 drop 3 times daily as needed. 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/06/2010 Resolved Problems Problem Noted Date Diagnosed Date Resolved Date CIS - Entered not Verified 05/06/2010 1 07/20/2021 Encounters Date Type Department Care Team Description 06/01/2024 10:00 AM EST Office [place] [address] Mandeep, Irina, OD Pseudophakia of both eyes; History of strabismus surgery; Exophoria of both eyes; Ocular migraine; Posterior vitreous detachment of both eyes; Myopia of both eyes with astigmatism and presbyopia 06/01/2024 Travel 05/03/2024 10:15 AM EST Office Visit Dermatology at [address] [place] [address] Melvin Ruiz MD [place] (actinic keratosis); Nevus; History of SCC (squamous cell carcinoma) of skin 05/03/2024 Travel from Last 3 Months Family History Medical History Relation Comments Amblyopia Neg Hx Blindness Neg Hx Cancer Neg Hx Cataracts Neg Hx Diabetes Neg Hx Glaucoma Neg Hx Heart Disease Neg Hx Hypertension Neg Hx Macular Degeneration Neg Hx Retinal Detachment Neg Hx Strabismus Neg Hx Stroke Neg Hx Thyroid Disease Neg Hx Social History Tobacco Use Types Packs/Day Years Used Date Smoking Tobacco: Never Smokeless Tobacco: Never Tobacco Cessation:Counseling Given: Not Answered Alcohol Use Standard Drinks/Week Comments No 0 (1 standard drink = 0.6 oz pur e alcohol) Sex and Gender Information Value Date Recorded Sex Assigned at Not on file Gender Identity Not on file Sexual Orientation Not on file Last Filed Vital Signs Vital Sign Reading Time Taken Comments Blood Pressure 145/85 05/20/2022 4:20 PM EST Pulse 67 05/20/2022 4:20 PM EST Temperature 36.7 ??C (98.1 ??F) 03/16/2018 1 0:48 AM EDT Respiratory Rate 16 09/12/2021 1:00 PM EDT Oxygen Saturation 94% 09/12/2021 1:00 PM EDT Inhaled Oxygen Concentration - - Weight 89.8 kg (197 lb 14.4 oz) 05/20/2022 4:20 PM EST Height 172.7 cm (5' 8) 05/20/2022 4:20 PM EST Body Mass Index 30.09 05/20/2022 4:20 PM EST Plan of Treatment Upcoming Encounters Date Type Department Care Team (Late st Contact Info) Description 05/09/2025 10:45 AM EST Office Visit Dermatology at [address] [place] [address] Melvin Ruiz MD [address] [facility], [place] A [place]ERMATOLOGY [place], [place] [address] 06/08/2025 3:00 PM EST Office [place] [address] Irina Kaufman, [place] [place] [address] Health Maintenance Due Date Last Done Comments CT Colonography 1945 FIT DNA 1945 FIT 1945 Sigmoidoscopy 1945 Hepatitis C Screening 1964 Tetanus/Diphtheria/Pertussis Vaccines (1 - Tdap) 1965 Zoster vaccine (1 of 2) 1996 Advance Directive 2001 Pneumoccocal Vaccine: 65+ (1 of 1 - PCV) 09/07/2011 RSV Vaccine (1 - 1-dose 75+ series) 2021 Covid-19 Vaccine (1 - 2023-2 5 season) 2024 Influenza (Flu) vaccine (1 o f 1 - Influenza standard series) 02/21/2024 Colonoscopy 09/12/2026 09/12/2021, 08/21, 03/16/2018, Additional history exists Colorectal Cancer Screening 09/12/2026 Sigmoidoscopy (10 year) with FIT yearly 09/13/2031 09/12/2021, 09/12/2021, 03/16/2018, Additional history exists Procedures Procedure Name Priority Date/Time Associated Diagnosis Comments COLONOSCOPY Routine 09/12/2021 11:24 AM EDT from Last 3 Months or Most Recently Relevant to Health Maintenance Results * COLONOSCOPY (09/12/2021 11:24 AM EDT) COLONOSCOPY [facility] Endoscopy Procedure Date: 09/12/2021 11:24 AM ? Patient Name: Martha Pulliam ? Date of : 1945 ? Age: 76 ? Order #: [id number] ? Instrument Name: [id number] ? Procedure: ? Colonoscopy Indications: ? High risk colon cancer surveillance: ? Personal history of colonic polyps Patient Profile: ? This is a 76 year old male. Refer to ? note in patient chart for ? documentation of history and ? physical. Last Colonoscopy: 3 years ? ago. Providers: ? Ashutosh Chang MD, Wilma Cervantes. ? Katty Mojica MD: ?Simi De La Fuente MD Medicines: [...] preparation was evaluated using ? the BBPS ([place] Bowel Preparation ? Scale) with scores of: [...] Fuente MD GENERAL SURGICAL ORD ERABLES PROVATION from Last 3 Months or Most Recently Relevant to Health Maintenance Care Teams Carousel Attendant Relationship Specialty Start Date End Date Karen Hall APRN [address] [place] [address] [phone] PCP - General Geriatric Medicine 04/30/23
--- OUTSIDE RECORDS SUMMARY | 2024-06-07 09:46 | XMS_ITS | Encounter Summary ---
[place] [address] Care Team Providers Care Defect Cutter Name Role Phone Simi De La Fuente MD Primary Care Provider [phone] Reason for Referral * Consultation (Routine) - Closed Specialty Diagnoses / Procedures Referred By Aurelia devi Referred To Contact Orthopaedics Diagnoses Left knee pain, unspecified chronicity Bess Bullock APRN [address] [address] [facility] [address] [place] [phone] Referral ID Status Reason Start Date Expiration Date V isits Requested Visits Authorized [id number] Closed Consult, Test & Treat PCP Updated and/or Approved 04/29/2022 04/29/2023 6 6 Encounter Details Date Type Department Care Team (Latest Contact Info) Description 04/29/2022 Transcribe Orders eDH Incoming Referrals [phone] Bess Bullock APRN [address] [address] Left knee pain, unspecified chronicity Social History Tobacco Use Types Packs/Day Years [...] 10:45 AM EST Office Visit Dermatology at [place] [address] [facility] [place] [address] Melvin Ruiz MD [address] [facility] [address] [address] [address], [place] [address] 06/08/2025 3:00 PM EST Office [place] [address] Irina Kaufman OD [facility] [place] [address] Scheduled Referrals Name Type Priority Associated Diagnoses Orde r Schedule Referral to Orthopaedics Outpatient Referral Routine Left knee pain, unspecified chronicity Ordered: 04/29/2022 documented as of this encounter Visit Diagnoses Diagnosis Left knee pain, unspecified chronicity documented in this encounter Care Teams Defect Cutter Relationship Specialty Start Date End Date Simi De La Fuente MD [address] [place] [address] PCP - General General Internal Medicine 11/28/1604/29/23 documented as of this encounter
--- OUTSIDE RECORDS SUMMARY | 2024-06-07 09:46 | XMS_ITS | Encounter Summary ---
Author Organization [facility] [place] [address] Care Team Providers Care Building Insulation Installer Name Role Phone Karen Hall APRN Primary Care Provider [phone] Encounter Details Date Type Department Care Team (Late st Contact Info) Description 09/21/2023 [place] [phone] Finn Dhillon MD [facility] [place] [address] Social History Tobacco Use Types Packs/Day Years [...] encounter Miscellaneous Notes * Telephone Encounter - Yodit Bai COT - 09/21/2023 11:15 AM EDT Spoke with patient's ; he is not at home. Patient has been bothered by floaters RE not like his usual one or two, since May. Also concerning, more recently x over a month, intermittent RE redness, sometimes swelling and FB sensation. He is established patient of Dr. Moe and scheduled focused exam with her for 09/23 at 9:40 tech time. * Telephone Encounter - Ophelia Winter - 09/21/2023 8:35 AM EDT Which eye: right Onset: sudden Duration (24 hours, days, weeks, etc): August 21, 2023 New problem vs ongoing: new Do symptoms come/go or constant or worsening: Constant Does the patient have a routine eye provider: SS Have they been seen for this problem by their provider & if so, when: No Brief description/details of problem in patients words: Right Eye has had and been treated for Conjunctivitis however did not get better even with meds. Now OD is seeing floaters that look like cluster flys especially in bright light, has had one or two floaters but never a family of them. OD is very painful. Action taken? (Appt booked, phone call transferred to, etc): Sent to triage please call patient at [phone] documented in this encounter Plan of Treatment Upcoming Encounters Date Type Department Care Team (Late st Contact Info) Description 05/09/2025 10:45 AM EST Office Visit Dermatology at [place] [address] [place] [address] Melvin Ruiz MD [address], [place] [address] 06/08/2025 3:00 PM EST [place] [address] Irina Kaufman, [place] [facility] [place] [address] documented as of this encounter Visit Diagnoses Not on filedocumented in this encounter Care Teams Building Insulation Installer Relationship Specialty Start Date End Date Karen Hall APRN [address] [place] [id number] PCP - General Geriatric Medicine 04/30/23 documented as of this encounter
--- OUTSIDE RECORDS SUMMARY | 2024-06-07 09:46 | XMS_ITS | Encounter Summary ---
Author Organization [facility] [place] [address] Care Team Providers Care Manager Wind Name Role Phone TaeKaren abbott ALISSA Primary Care Provider [phone] Reason for Visit * Reason Comments Pseudophakia Encounter Details Date Type Department Care Team (Late st Contact Info) Description 05/28/2023 10:00 AM EST Office [place] [address] Irina Kaufman, OD [facility] [place] [address] Pseudophakia of both eyes; Ocular migraine; History of strabismus surgery; Exophoria of both eyes; Myopia of both eyes [...] Progress Notes * Irina Kaufman, OD - 05/28/2023 10:00 AM EST Martha Pulliam is a 77 y.o. male who had concerns including Pseudophakia. Encounter Diagnoses Name Primary? 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 Gonzalez) 2) Ocular migraines - infrequent, stable. 3) S/p strabismus surgery both eyes at [facility] in 4) H/o posterior vitreous detachment [...] Cautioned about driving !! Follow up: 1 year for CEE. Eyeglass Final Rx Eyeglass Final Rx Sphere Cylinder [place] Dist [facility] Add Near VA Right -2.00 +2.00 175 20/20 +2.50 20/20 Left -0.75 +1.00 020 20/20 +2.50 20/20 Expiration Date: 05/28/2025 documented in this encounter Plan of Treatment Upcoming Encounters Date Type Department Care Team (Late st Contact Info) Description 05/09/2025 10:45 AM EST Office Visit Dermatology at [place] [address] [place] [address] Melvin Ruiz MD [address], [place] [address] 06/08/2025 3:00 PM EST Office [place] [address] Irina Kaufman, [place] 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
--- OUTSIDE RECORDS SUMMARY | 2024-06-07 09:46 | XMS_ITS | Encounter Summary ---
[place] [address] Care Team Providers Care Electroencephalogram Technologist Name Role Phone Simi De La Fuente MD Primary Care Provider [phone] Reason for Visit * Reason Comments Pseudophakia Encounter Details Date Type Department Care Team (Late st Contact Info) Description 08/08/2021 9:40 AM EST Office [place] [address] Irina Kaufman, OD [facility] [place] [place] [address] Pseudophakia of both eyes; Ocular migraine; History [...] Progress Notes * Irina Kaufman, OD - 08/08/2021 9:40 AM EST NathanaelKendall Pulliam is a 75 y.o. male who had concerns including Pseudophakia. Encounter Diagnoses Name Primary? Pseudophakia of both eyes ??? Ocular migraine ??? History of strabismus surgery ??? Exophoria of both eyes ??? Myopia of both eyes with astigmatism and presbyopia Assessment: 1) Pseudophakia OU (by Dr. Gonzalez) 2) Ocular migraines - infrequent, stable. 3) S/p strabismus surgery both eyes at [facility] in 4) H/o posterior vitreous detachment right [...] visual change. 5) Does okay without glasses. No distance glasses needed. rx given per pt request. Continue with OTC readers at near [facility]. Follow up: 1 year for CEE. Eyeglass Final Rx Eyeglass Final Rx Sphere Cylinder [place] Dist VA Add Near VA Right -2.00 +2.00 180 20/20 +2.50 20/20 Left -0.75 +1.00 020 20/20 +2.50 20/20 Expiration Date: 08/08/2023 Pupillary Distance: 68 documented in this encounter Plan of Treatment Upcoming Encounters Date Type Department Care Team (Late st Contact Info) Description 05/09/2025 10:45 AM EST Office Visit Dermatology at [place] [address] [place] [address] Melvin Ruiz MD [address], [place] [address] 06/08/2025 3:00 PM EST Office [place] [address] Irina Kaufman, OD [facility] [place] [address] documented as of this encounter Visit Diagnoses Diagnosis Pseudophakia of both eyes Lens replaced by other means Ocular migraine Other forms of migraine, without mention of intractable migraine without mention of status migrainosus History of strabismus surgery 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
--- OUTSIDE RECORDS SUMMARY | 2024-06-07 09:46 | XMS_ITS | Encounter Summary ---
[place] [address] Care Team Providers Care Telecommunicator Supervisor Name Role Phone Simi De La Fuente MD Primary Care Provider [phone] Reason for Visit * Reason Comments Establish Care LEFT KNEE PAIN * Consultation (Routine) - Closed Specialty Diagnoses / Procedures Referred By Aurelia devi Referred To Contact Orthopaedics Diagnoses Left knee pain, unspecified chronicity Bess Bullock, VICE PRESIDENT OF [employer] [address] [address] [facility] [address] [place] [phone] Referral ID Status Reason Start Date Expiration Date V isits Requested Visits Authorized [id number] Closed Consult, Test & Treat PCP Updated and/or Approved 04/29/2022 04/29/2023 6 6 Encounter Details Date Type Department Care Team (Late st Contact Info) Description 05/20/2022 4:30 PM EST Office [place] [address] Meri Dye MD [facility] [address] [facility] [place] [address] Post-traumatic osteoarthritis of left knee Social History Tobacco Use Types Packs/Day Years [...] Pulse 67 05/20/2022 4:20 PM EST Temperature - - Respiratory Rate - - Oxygen Saturation - - Inhaled Oxygen Concentration - - Weight 89.8 kg (197 lb 14.4 oz) 05/20/2022 4:20 PM EST Height 172.7 cm (5' 8) 05/20/2022 4:20 PM EST Body Mass Index 30.09 05/20/2022 4:20 PM EST documented in this encounter Patient Instructions * Patient Instructions* Meri Dye MD - 05/20/2022 4:30 PM EST Living with arthritis: Do???s and Don???ts Osteoarthritis is an inflammation of the joint to affects many people as they age, mainly in the knees, hips and hands. After many years of use, the cartilage that lines the inside of the joint thinsand eventually wears off, leaving bone rubbing on bone. At the edge of the joint, the bone may growinto small ???spurs?? and fluid may increase inside, causing inflammation and pain. There is no cure for arthritis. But there are many things that you and your doctor can do to make arthritis easier to live with, and to slow its progression. These Do???s and Don???ts may help: Do get moving. Exercising your arthritic joints, except during acute flare-ups, will strengthen themuscles and help you stay active. Eventually you???ll find that you are in less pain and can move more easily. Do consult a physical therapist to find out what type of exercise is best for you. Ask your doctor for a referral. Don???t do those exercises during painful flare-ups. This is the time to give your joints a rest. Do take acetaminophen (Tylenol), as needed, especially during flare-ups. You can take up to 4000 mga day, but be sure to tell your doctor if you???re taking acetaminophen regularly. Don???t take acetaminophen without first consulting with your doctor if you have liver or kidney disease -or you???re taking a prescription pain medication. Do ask your doctor about nonsteroidal anti-inflammatory drugs, sometimes called NSAID???s (pronounced N-SEDs). Some people benefit from ibuprofen (Advil, Motrin) or naproxen (Aleve), which are sold ryau-mvl-agfjdsd. Others take prescription NSAID???s such as Celebrex. Don???t take NSAID???s without consulting your doctor if you???re over the age of 65. Both prescription and non-prescription NSAID???s can have serious side effects, and should be used with caution, if at all, by older people. Do consider a trial of glucosamine (1500 mg daily), with or without chondroitin (1200 mg daily). Take it every day for 3 or 4 month without making other changes in treatment before you decide whetherit???s working. Don???t buy an expensive brand of glucosamine. The extra cost probably isn???t worth it. Don???t take chondroitin without glucosamine, as it is unlikely to help. Do apply ointments and rubs for pain relief. Start with capsaicin, which is available without a prescription. Buy the lowest strength you can find, and start applying a very small amount on a small area because it may cause a burning sensation in the beginning. If you can???t tolerate capsaicin ointment, Voltaren gel may work for you. Lidocaine patches may be worth trying too. Do consider corticosteroid injections if you continue to have a lot of pain in your knee, especially if the doctor finds that you have fluid build-up. (If you don???t want to be injected with a steroid, as your doctor if you???re a candidate for injections of hyaluronic acid, an artificial joint fluid that may help some patients.) Do try a wrap-around knee brace, which you can purchase at your local pharmacy. Ask your doctor about getting a cane or a walker if you need additional support. Do alert your physician to certain conditions that can make your arthritis pain worse-insomnia, depression, or foot problems, for instance. And, if you have ill-fitting shoes or shoes that don???t provide much support it???s time to replace them documented in this encounter Progress Notes * Meri Dye MD - 05/20/2022 4:30 PM EST Patient presents for discussion of left knee osteoarthritis. He was injured in high school and had the knee scoped in 1979 or thereab. He says that he was doing fine until sometime this summer. This may or may not be related to a slip and fall on his dock this summer, but he became worse with driving and ended up with night pain this fall. He has started seeing PT and is seeing significant results from that. The night pain and the driving are both better. He comes in however for further discussion because he would like to understand this better. His medical history is otherwise essentially unremarkable. He is an active 76-year-old. He has interest in riding his stationary bike if that would help. He is engaged with doing his PT exercises. Objective: Appears well. He has a broken down right foot with significant pronation, but the right knee reaches full extension and has no effusion or swelling. The left knee is bulkier in appearance than the right, but has no effusion. There is no specific tenderness in the lateral aspect of the knee but there is some medial joint line tenderness as well as lateral peripatellar tenderness. His range of motion is past 90 degrees of flexion but is missing a few degrees of extension. X-rays taken recently are reviewed with him. They show significant medial compartment osteoarthritis, with lesser osteoarthritis in the patellofemoral and lateral compartment. A/P: Knee osteoarthritis. He has had a nice response to PT, which is typical for what we see with osteoarthritis. We discussed other options such as oral NSAIDs, topicals, injection, and discussed return to exercise, with some comments on stationary bike fit. At the present time he is not having enough pain or disability to justify injection, but that could be in his future. Discussed that he does not need to proceed in the direction of total joint replacement at this time. Follow-up is as needed. documented in this encounter Plan of Treatment Upcoming Encounters Date Type Department Care Team (Late st Contact Info) Description 05/09/2025 10:45 AM EST Office Visit Dermatology at [place] [address] [place] [address] Melvin Ruiz MD [address], JUAN DIEGO [place] [address] 06/08/2025 3:00 PM EST Office [place] [address] Irina Kaufman OD [facility] [place] [address] Scheduled Referrals Name Type Priority Associated Diagnoses Orde r Schedule Referral to Orthopaedics Outpatient Referral Routine Left knee pain, unspecified chronicity Ordered: 04/29/2022 documented as of this encounter Visit Diagnoses Diagnosis Post-traumatic osteoarthritis of left knee Secondary localized osteoarthrosis, lower leg documented in this encounter Care Teams Telecommunicator Supervisor Relationship Specialty Start Date End Date Simi De La Fuente MD [address] [place] [address] PCP - General General Internal Medicine 11/28/1604/29/23 documented as of this encounter
--- OUTSIDE RECORDS SUMMARY | 2024-06-07 09:46 | XMS_ITS | Encounter Summary ---
[place] [address] Care Team Providers Care Optical Engineering Technician Name Role Phone Simi De La Fuente MD Primary Care Provider Reason for Visit * Reason Comments Skin Check Encounter Details Date Type Department Care Team (Late st Contact Info) Description 04/23/2020 10:30 AM EST Office Visit Dermatology at [address] [place] [address] Melvin Ruiz MD [address] [place] [address], [place] [address] Nevus; AK (actinic keratosis) Social History Tobacco [...] Progress Notes * Melvin Ruiz MD - 04/23/2020 10:30 AM EST Problem: 1. Yearly skin check 2. 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 He has been doing well. He like a general skin checkup. Physical examination reveals a pleasant 74-year-old gentleman who has actinic keratoses in the on the vertex of scalp and one on his right lateral cheek a total of 4 noted. Otherwise careful examination of the head and the neck the chest the back the hands the arms the forearms the thighs and the calves is benign. Assessment and plan: Actinic keratoses 1. LN2 x2 applied each of 4 sites. Benign skin examination benign nevi 1. Patient reassured 2. Continue sun avoidance precautions and to return to clinic in a year for recheck CC: Simi De La Fuente MD documented in this encounter Plan of Treatment Upcoming Encounters Date Type Department Care Team (Late st Contact Info) Description 05/09/2025 10:45 AM EST Office Visit Dermatology at [place] [address] [place] [address] Melvin Ruiz MD [address], [place] [address] 06/08/2025 3:00 PM EST Office [place] [address] Irina Kaufman OD [facility] [place] [address] documented as of this encounter Visit Diagnoses Diagnosis Nevus Benign neoplasm of skin, site unspecified AK (actinic keratosis) Actinic keratosis documented in this encounter Care Teams Optical Engineering Technician Relationship Specialty Start Date End Date Simi De La Fuente MD [address] [place] [address] PCP - General General Internal Medicine 11/28/1604/29/23 documented as of this encounter
--- OUTSIDE RECORDS SUMMARY | 2024-06-07 09:46 | XMS_ITS | Encounter Summary ---
Author Organization [facility] [place] [address] Care Team Providers Care Financial Operations Consultant Name Role Phone Simi De La Fuente MD Primary Care Provider [phone] Reason for Visit * Reason Comments Eye Exam Pseudophakia Encounter Details Date Type Department Care Team (Late st Contact Info) Description 05/03/2020 1:00 PM EST Office Visit Ophthalmology at [facility] [place] [address] Selin Monte, OD [facility] [place] [address] Pseudophakia of both eyes; Ocular migraine; History [...] Progress Notes * Selin Monte, OD - 05/03/2020 1:00 PM EST Martha Pulliam is a 74 y.o. male who had concerns including Eye Exam and Pseudophakia. Encounter Diagnoses Name Primary? Pseudophakia of both eyes ??? Ocular migraine ??? History of strabismus surgery ??? Exophoria of both eyes ??? Myopia of both eyes with astigmatism and presbyopia Assessment: 1) Pseudophakia OU (by Dr. Gonzalez) 2) Ocular migraines - infrequent, stable. 3) S/p strabismus surgery both eyes at [facility] in 4) H/o posterior vitreous detachment right [...] okay without glasses. No distance glasses needed. Continue with OTC readers at near PRN. Follow up: 1 year for CEE. Eyeglass Final Rx Eyeglass Final Rx declines documented in this encounter Plan of Treatment Upcoming Encounters Date Type Department Care Team (Late st Contact Info) Description 05/09/2025 10:45 AM EST Office Visit Dermatology at [place] [address] [place] [address] Melvin Ruiz MD [address], [place] [address] 06/08/2025 3:00 PM EST Office Visit [place] [address] Irina Kaufman, [facility] [place] [address] documented as of this encounter Visit Diagnoses Diagnosis Pseudophakia of both eyes Lens replaced by other means Ocular migraine Other forms of migraine, without mention of intractable migraine without mention of status migrainosus History of strabismus surgery 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
--- OUTSIDE RECORDS SUMMARY | 2024-06-07 09:46 | XMS_ITS | Encounter Summary ---
[place] [address] Care Team Providers Care Department Assistant Name Role Phone Simi De La Fuente MD Primary Care Provider [phone] Reason for Visit * Reason Comments Annual Exam Encounter Details Date Type Department Care Team (Late st Contact Info) Description 04/26/2021 10:30 AM EDT Office Visit Dermatology at [address] [place] [address] Melvin Gonzales MD [address] [place] [address], [place] [address] Nevus; AK (actinic keratosis) Social History Tobacco [...] of this encounter Progress Notes * Melvin Gonzales MD - 04/26/2021 10:30 AM EDT Problem: 1. ??Yearly skin check 2. 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 He has been doing well. He has not noted any new lesionsof concern. Physical examination reveals a pleasant 75-year-old gentleman who has actinic keratoses one on the vertex of the scalp but otherwise skin of the chest the back the scalp the face the hands the arms forearms is benign. Assessment plan: Actinic keratosis vertex of scalp 1. LN 2 x 2 applied to single site Benign skin examination/benign nevi and seborrheic keratoses 1. Patient reassured 2. Continue sun precaution 3. Return to clinic in a year for repeat check. CC: Simi De La Fuente MD documented in this encounter Miscellaneous Notes * Addendum Note - Melvin Gonzales MD - 04/26/2021 10:30 AM EDTAddended by: MELVIN GONZALES on: 04/26/2021 11:27 AM Modules accepted: Level of Service documented in this encounter Plan of Treatment Upcoming Encounters Date Type Department Care Team (Late st Contact Info) Description 05/09/2025 10:45 AM EST Office Visit Dermatology at [place] [address] [facility] [place] [address] Melvin Gonzales MD [address] [facility], [place] [address] 06/08/2025 3:00 PM EST Office [place] [address] Irina Kaufman OD [facility] [place] [address] documented as of this encounter Visit Diagnoses Diagnosis Nevus Benign neoplasm of skin, site unspecified AK (actinic keratosis) Actinic keratosis documented in this encounter Care Teams Department Assistant Relationship Specialty Start Date End Date Simi De La Fuente MD [address] [place] [address] PCP - General General Internal Medicine 11/28/1604/29/23 documented as of this encounter
--- OUTSIDE RECORDS SUMMARY | 2024-06-07 09:46 | XMS_ITS | Encounter Summary ---
Author Organization [facility] [place] [address] Care Team Providers Care Oil Spreader Operator Name Role Phone Karen Hall APRN Primary Care Provider [phone] Encounter Details Date Type Department Care Team (Latest Contact Info) Description 06/01/2024 Travel Social History Tobacco Use Types Packs/Day [...] 10:45 AM EST Office Visit Dermatology at [address] [place] [address] Melvin Ruiz MD [address] [place] [address] RD, [place] [address] 06/08/2025 3:00 PM EST Office [place] [address] Irina Kaufman OD [facility] [place] [address] documented as of this encounter Visit Diagnoses Not on filedocumented in this encounter Care Teams Oil Spreader Operator Relationship Specialty Start Date End Date Karen Hall APRN [address] [place] [address] PCP - General Geriatric Medicine 04/30/23 documented as of this encounter
--- OUTSIDE RECORDS SUMMARY | 2024-06-07 09:46 | XMS_ITS | Encounter Summary ---
[place] [address] Care Team Providers Care Wrapper Opener Name Role Phone Karen Hall APRN Primary Care Provider [phone] Encounter Details Date Type Department Care Team (Latest Contact Info) Description 08/07/2023 9:55 PM EST - 08/07/2023 11:59 PM EST [place] [address] Discharge Disposition: Home Social History Tobacco Use Types Packs/Day Years Used Date Smoking Tobacco: Never Smokeless Tobacco: Never Alcohol Use Standard Drinks/Week Comments No 0 (1 standard drink = 0.6 oz pur e alcohol) Sex and Gender Information Value Date Recorded Sex Assigned at Not on file Gender Identity Not on file Sexual Orientation Not on file documented as of this encounter Medications at Time of Discharge Medication Sig Dispensed Refills Start Date End Date sildenafil (VIAGRA) 100 mg Tablet Take 1 tablet by mouth daily. 1 04/23/2018 atorvastatin (Lipitor) 40 mg Tablet Daily 09/22/2012 losartan (COZAAR) 50 mg Tablet Daily 11/17/2012 documented as of this encounter Plan of Treatment Upcoming Encounters Date Type Department Care Team (Late st Contact Info) Description 05/09/2025 10:45 AM EST Office Visit Dermatology at [address] [place] [address] Melvin Ruiz MD [address] [address], JU[place] DIEGO D[place] [address] 06/08/2025 3:00 PM EST Office Visit Ophthalmology at [place] [phone] Irina Kaufman, [facility] [place] [address] documented as of this encounter Procedures Procedure Name Priority Date/Time Associated Diagnosis Comments SURGICAL PATHOLOGY REPORT Routine 08/07/2023 8:15 AM EST documented in this encounter Results * Surgical Pathology Report (08/07/2023 8:15 AM EST) Final Diagnosis [id number] ? Location: [facility] The signing pathologist has (i) examined the relevant preparation(s) for the specimen(s) and (ii) rendered or confirmed the diagnosis(es). . 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, [place] [address] Sewage Screen Operator: Marlyn Liu MD, FCAP, ??CLIA Certificate: [id number] SPECIMEN(S) SUBMITTED A - L Posterior parietal scalp CLINICAL INFORMATION Recurrent hyperkeratotic papule; rule out SCC/BCC SPECIMEN PROCESSING A - Labeled/Fixative: Patient demographics, formalin. Quantity/Size: ??Single, 0.7 x 0.7 x 0.1 cm. Tissue Description: Shave of a yellow-white, hyperkeratotic skin papule. Sections/Processi ng: Inked, trisected (fragmented) and entirely submitted in 1 cassette labeled A1. ??sns 08/18/2023 3:32 PM EST [facility] SPECIMEN FROM SKIN / Unknown 08/07/2023 8:15 AM EST 08/07/2023 8:15 AM EST Melvin Ruiz MD PATHOLOGY/CYTOLOGY [facility] [place] [address] [facility] [place] [address] documented in this encounter Visit Diagnoses Not on filedocumented in this encounter Care Teams Wrapper Opener Relationship Specialty Start Date End Date Karen Hall APRN [address] [place] [address] PCP - General Geriatric Medicine 04/30/23 documented as of this encounter
--- OUTSIDE RECORDS SUMMARY | 2024-06-07 09:47 | XMS_ITS | Encounter Summary ---
Author Organization [facility] [place] [address] Care Team Providers Care Beadworker Name Role Phone Bandar Dorantes MD Primary Care Provider + Encounter Details Date Type Department Care Team (Late st Contact Info) Description 08/01/2010 1:00 PM EST Office Visit [place] [address] CLIN[address], DR FULLER Discharge Disposition: Home Social History Tobacco Use Types Packs/Day Years Used Date Smoking Tobacco: Never Assessed Sex and Gender Information Value Date Recorded Sex Assigned at Not on file Gender Identity Not on file Sexual Orientation Not on file documented as of this encounter Plan of Treatment Upcoming Encounters Date Type Department Care Team (Late st Contact Info) Description 05/09/2025 10:45 AM EST Office Visit Dermatology at [address] [place] [address] Melvin Ruiz MD [address] [place] [address] RD, [place] [address] 06/08/2025 3:00 PM EST Office [place] [address] Irina Kaufman OD [facility] [place] [address] documented as of this encounter Visit Diagnoses Not on filedocumented in this encounter Care Teams Beadworker Relationship Specialty Start Date End Date Bandar Dorantes MD [address] [place] [address] PCP - General 05/14/10 11/27/16 documented as of this encounter
--- OUTSIDE RECORDS SUMMARY | 2024-06-07 09:47 | XMS_ITS | Encounter Summary ---
[place] [address] Care Team Providers Care Necktie Centralizing Machine Operator Name Role Phone Bandar Dorantes MD Primary Care Provider + Reason for Visit * Reason Onset Date Comments Eye Problem 10/03/2010 OD Kendall has a new floater that is laways in the same area and never goes away. It looks almost like a assiniboine and sioux. no flashes, he has had it for about 3-4 days. he is s/p cataract sx [address] Gonzalez. Please call him at his home number and let him know if he should be seen. Eye Problem 10/03/2010 This is a purged chart, last seen in by Dr Gonzalez. Eye Problem 10/03/2010 Kendall returned your call. If he doesn't hear from you before we close he'll just call back in the morning. He doesn't think there is much that can be done today at this point in the day. Encounter Details Date Type Department Care Team (Late st Contact Info) Description 10/03/2010 Telephone [place] [address] Regine Giron MD Eye Problem (OD Kendall has a new floater that is laways in the same area and never goes away. It looks almost like a assiniboine and sioux. no flashes, he has had it for about 3-4 days. he is s/p cataract sx [address] Gonzalez. Please call him at his home number and let him know if he should be seen. ); Eye Problem (This is a purged chart, last seen in [address] Gonzalez.); Eye Problem (Kendall returned your call. If he doesn't hear from you before we close he'll just call back in the morning. He doesn't think there is much that can be done today at this point in the day.) Social History Tobacco Use Types Packs/Day Years Used Date Smoking Tobacco: Never Assessed Sex and Gender Information Value Date Recorded Sex Assigned at Not on file Gender Identity Not on file Sexual Orientation Not on file documented as of this encounter Miscellaneous Notes * Telephone Encounter - Yessenia Glasgow COA - 10/04/2010 8:49 AM EDT C/o floater OD, stationary in center of vision x 3days, has had floaters before No flashes noticed. Sees shadow or movement on lateral side vision OD Slight incr blurriness OD, some blurriness OS Had CE/IOL 2007 w/DMM Reviewed signs/symptoms of RD, pt will call back if any changes or worsening documented in this encounter Plan of Treatment Upcoming Encounters Date Type Department Care Team (Late st Contact Info) Description 05/09/2025 10:45 AM EST Office Visit Dermatology at [address] [address] Melvin Ruiz MD [address], [place] [address] 06/08/2025 3:00 PM EST Office [place] [address] Irina Kaufman, [place] [facility] [place] [address] documented as of this encounter Visit Diagnoses Not on filedocumented in this encounter Care Teams Necktie Centralizing Machine Operator Relationship Specialty Start Date End Date Bandar Dorantes MD [address] [place] [address] PCP - General 05/14/10 11/27/16 documented as of this encounter
--- OUTSIDE RECORDS SUMMARY | 2024-06-07 09:47 | XMS_ITS | Encounter Summary ---
Author Organization [facility]ly [facility] [place] [address] Care Team Providers Care Ornamental Iron Worker Helper Name Role Phone Bandar Dorantes MD Primary Care Provider + Encounter Details Date Type Department Care Team (Late st Contact Info) Description 10/10/2010 [place] [address] Nadege Rae [facility] [address] [place] [address] Social History Tobacco Use Types Packs/Day Years [...] 10:45 AM EST Office Visit Dermatology at [address] [place] [phone] Melvin Ruiz MD [address] [place] [address] RD, JUAN [place] [address] 06/08/2025 3:00 PM EST Office [place] [address] Irina Kaufman, OD [facility] [place] [address] documented as of this encounter Visit Diagnoses Not on filedocumented in this encounter Care Teams Ornamental Iron Worker Helper Relationship Specialty Start Date End Date Bandar Dorantes MD [address] [place] [address] PCP - General 05/14/10 11/27/16 documented as of this encounter
--- OUTSIDE RECORDS SUMMARY | 2024-06-07 09:47 | XMS_ITS | Encounter Summary ---
Author Organization [facility] [place] [address] Care Team Providers Care Hardwood Sawyer Name Role Phone Unavailable Primary Care Provider Unavailabl e Encounter Details Date Type Department Care Team (Late st Contact Info) Description 05/06/2010 8:15 AM EST Office [place] [phone] Vitaliy Lacy MD [facility] DR [place] [address] Social History Tobacco Use Types Packs/Day Years [...] 10:45 AM EST Office Visit Dermatology at [address] [place] [phone] Melvin Ruiz MD [address], [place] [address] 06/08/2025 3:00 PM EST Office [place] [phone] Irina Kaufman OD [facility] [place] [address] documented as of this encounter Visit Diagnoses Not on filedocumented in this encounter
--- OUTSIDE RECORDS SUMMARY | 2024-06-07 09:47 | XMS_ITS | Encounter Summary ---
Author Organization [facility]ly [facility] [place] [address] Care Team Providers Care Emergency Room Doctor Name Role Phone Bandar Dorantes MD Primary Care Provider + Encounter Details Date Type Department Care Team (Late st Contact Info) Description 02/25/2012 8:55 AM EDT - 02/25/2012 11:59 PM EDT Hospital Encounter XRay at [address] [place] [address] Hand pain Social History Tobacco Use Types Packs/Day Years [...] Sig Dispensed Refills Start Date End Date aspirin 81 mg EC tablet Take 81 mg by mouth daily. 07/25/2016 atorvastatin (LIPITOR) 20 mg tablet Take 20 mg by mouth daily. 07/25/2016 ibuprofen (ADVIL;MOTRIN) 800 mg tablet Take 800 mg by mouth as needed. 10/23/2010 07/25/2016 multivitamin (THERAGRAN) tablet Take 1 tablet by mouth daily. 07/25/2016 documented as of this encounter Plan of Treatment Upcoming Encounters Date Type Department Care Team (Late st Contact Info) Description 05/09/2025 10:45 AM EST Office Visit Dermatology at [address] [place] [phone] Melvin Ruiz MD [address] [place] [address] RD, [place] [address] 06/08/2025 3:00 PM EST Office [place] [address] Mandeep Irina, OD [facility] [place] [address] documented as of this encounter Procedures Procedure Name Priority Date/Time Associated Diagnosis Comments XR HAND DIAGNOSTIC MINIMUM 3 VIEWS Routine 02/25/2012 9:22 AM EDT Hand pain documented in this encounter Results * XR hand diagnostic minimum 3 views (02/25/2012 9:22 AM EDT) Anatomical Region Laterality Modality Hand N/A Radiographic Cheryl ging 02/25/2012 9:22 AM EDT Narrative 02/25/2012 9:46 AM EDT Examination DIAG HAND MIN 3 VIEWS/BILAT Clinical History HANDS HURT,RT CTR 07/02, LT CTR 09/11/10; Comparison May 01, 2010. Technique PA, oblique, lateral, [place] both hands. Findings Left hand: ??There is degenerative disease involving the 1st carpal metacarpal joint. ??The scapholunate interspace is widened indicating possible ligamentous injury. ??There is narrowing of the radial carpal joint. ??This degenerative disease appears to be somewhat more severe than seen in the prior examination. Right hand: ??There is degenerative disease of the 1st carpal metacarpal joint. ?? Widening of the scapholunate interspace in the indicates ligamentous injury. ?? There is also degenerative disease of the radiocarpal joint. ??The appearance of the right hand has not changed significantly since the prior study. Impression Degenerative disease bilaterally. Widening of the scapholunate interspace bilaterally. Degenerative disease of the left wrist appears slightly more severe than seen previously. Procedure Note Tad Perez MD - 02/25/2012 Examination DIAG HAND MIN 3 VIEWS/BILAT Clinical History HANDS HURT,RT CTR 07/02, LT CTR 09/11/10; Comparison May 01, 2010. Technique PA, oblique, lateral, [place] both hands. Findings Left hand: There is degenerative disease involving the 1st carpalmetacarpal joint. The scapholunate interspace is widened indicating possibleligamentous injury. There is narrowing of the radial carpal joint. This degenerative disease appears to be somewhat more severe than seen in the priorexamination. Right hand: There is degenerative disease of the 1st carpal metacarpaljoint. Widening of the scapholunate interspace in the indicates ligamentousinjury. There is also degenerative disease of the radiocarpal joint. Theappearance of the right hand has not changed significantly since the prior study. Impression Degenerative disease bilaterally. Widening of the scapholunate interspace bilaterally. Degenerative disease of the left wrist appears slightly more severe thanseen previously. Vitaliy Lacy MD IMG DX ORDERABLES documented in this encounter Visit Diagnoses Diagnosis Hand pain Pain in limb documented in this encounter Care Teams Emergency Room Doctor Relationship Specialty Start Date End Date Bandar Dorantes MD [address] [place] [address] PCP - General 05/14/10 11/27/16 documented as of this encounter
--- OUTSIDE RECORDS SUMMARY | 2024-06-07 09:47 | XMS_ITS | Encounter Summary ---
Author Organization [facility] [place] [address] Care Team Providers Care Collar Setter Name Role Phone Bandar Dorantes MD Primary Care Provider + Encounter Details Date Type Department Care Team (Latest Contact Info) Description 07/12/2010 8:55 AM EST - 07/12/2010 11:24 AM EST Hospital Encounter [facility]patient [place] [phone] Vitaliy Lacy MD [facility] DR [place] [address] Discharge Disposition: Home Social History Tobacco Use [...] 10:45 AM EST Office Visit Dermatology at [address] [place] [phone] Melvin Ruiz MD [address], JUAN DIEGO A DERMATOLOGY [place], [place] [address] 06/08/2025 3:00 PM EST Office [place] [phone] Irina Kaufman OD [facility] [place] [address] documented as of this encounter Visit Diagnoses Not on filedocumented in this encounter Care Teams Collar Setter Relationship Specialty Start Date End Date Bandar Dorantes MD [address] [place] [address] PCP - General 05/14/10 11/27/16 documented as of this encounter
--- OUTSIDE RECORDS SUMMARY | 2024-06-07 09:47 | XMS_ITS | Encounter Summary ---
Author Organization [facility] [place] [address] Care Team Providers Care Education Administrative Assistant Name Role Phone Bandar Dorantes MD Primary Care Provider + Encounter Details Date Type Department Care Team (Late st Contact Info) Description 01/20/2013 9:00 AM EDT - 01/20/2013 10:00 AM EDT Surgery [place] [address] Alexey Saavedra MD [facility] [place] [place] [address] COLONOSCOPY FLEXIBLE, WITH BX (WRVU 3.56) Social History Tobacco Use Types Packs/Day Years [...] Sign Reading Time Taken Comments Blood Pressure 122/66 01/20/2013 9:26 AM EDT Pulse 72 01/20/2013 9:26 AM EDT Temperature 36.5 ??C (97.7 ??F) 01/20/2013 8:20 AM ED T Respiratory Rate 16 01/20/2013 9:26 AM EDT Oxygen Saturation 95% 01/20/2013 9:26 AM EDT Inhaled Oxygen Concentration - - Weight 101.2 kg (223 lb) 01/20/2013 8:20 AM EDT Height - - Body Mass Index 32.93 02/25/2012 9:58 AM EDT documented in this encounter Discharge Instructions * Discharge Instructions* Herberth Milner RN - 01/20/2013 9:27 AM EDT You may have received medication before and/or during your procedure which effects judgement and reaction time. Do not drive, operate machinery, drink alcoholic beverages, or make important decisions for 24 hours. Be careful on stairs, as you may be unsteady on your feet. You may eat a regular diet as tolerated. Do not smoke if you are alone. IV site -- slight redness or tenderness is normal. You may use a warm compress. If tenderness and redness increases or foul drainage occurs please contact your M.D. Please call [phone] before 5 pm with problems, questions or concerns. After 5pm call [phone] and ask to speak with the fisher pot extension professor. Discharge instructions reviewed with patient who expresses understanding. * Attachments The following attachments cannot be sent through Care Everywhere. * COLONOSCOPY: WHAT TO EXPECT AT HOME ([place]) documented in this encounter Medications at Time of Discharge Medication Sig Dispensed Refills Start Date End Date atorvastatin (Lipitor) 40 mg Tablet Daily 09/22/2012 losartan (COZAAR) 50 mg Tablet Daily 11/17/2012 aspirin (ECOTRIN LOW STRENGTH) 81 mg Tablet, Delayed Release (E.C.) Reported on 11/25/2016 09/14/2012 11/25/2016 losartan (COZAAR) 25 mg tablet Take 25 mg by mouth daily. 07/25/2016 aspirin 81 mg EC tablet Take 81 mg by mouth daily. 07/25/2016 atorvastatin (LIPITOR) 20 mg tablet Take 20 mg by mouth daily. 07/25/2016 ibuprofen (ADVIL;MOTRIN) 800 mg tablet Take 800 mg by mouth as needed. 10/23/2010 07/25/2016 multivitamin (THERAGRAN) tablet Take 1 tablet by mouth daily. 07/25/2016 documented as of this encounter H&P Notes * Alexey Saavedra MD - 01/20/2013 8:43 AM EDT Gastroenterology and Hepatology Pre-Procedure History and Physical Exam Procedure: Colonoscopy: Indication: screen Patient Active Problem List Diagnoses Code ??? 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 CIS - Entered not Verified T999.0 ??? 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 Risks and benefits of the procedure explained to the patient. Consent signed. documented in this encounter Miscellaneous Notes * Miscellaneous - Provider, Scanning - 01/20/2013 4:51 PM EDT documented in this encounter Plan of Treatment Upcoming Encounters Date Type Department Care Team (Late st Contact Info) Description 05/09/2025 10:45 AM EST Office Visit Dermatology at [place] [address] [facility] [place] [address] Melvin Ruiz MD [address], [place] [address] 06/08/2025 3:00 PM EST Office [place] [address] Irina Kaufman, [place] [facility] [place] [address] documented as of this encounter Procedures Procedure Name Priority Date/Time Associated Diagnosis Comments SURGICAL PATHOLOGY REPORT Routine 01/20/2013 9:37 AM EDT SPECIMEN TO PATHOLOGY Routine 01/20/2013 9:37 AM EDT COLONOSCOPY FLEXIBLE, WITH BX (WRVU 3.56) 01/20/2013 8:56 AM EDT screening COLONOSCOPY Routine 01/20/2013 8:38 AM EDT documented in this encounter Results * Surgical Pathology Report (01/20/2013 9:37 AM EDT) Surgical Pathology Report ? [facility] ? Provider: ?? ALEXEY SAAVEDRA ?Pt. Name: ?? Martha PULLIAM ? Acc #: ?[id number] ?Pt. ? Col Date: ?? 01/20/2013 ?/Sex: ?1945,(67 years),Male ? Rec Date: ?? 01/20/2013 ?LOC: ?4T ? SURGICAL PATHOLOGY ? ---Pathologic Diagnosis--- ? Transverse colon, polypectomy: ?Tubular adenoma. ? CR-0, CR-PX ? 01/21/13 ? AJE ? 01/21/13 Verified by: ? nAtelmo Gilbert MD ? Pathologist ? (Electronic Signature) ? The attending pathologist whose signature appears on this report has ? reviewed all diagnostic slides and has edited the gross and/or ? microscopic portion of the report in rendering the final pathologic ? diagnosis. ? ---Microscopic Description--- ? Slides reviewed, microscopic description not recorded. ? ---Gross Description--- ? A - Labeled/Fixativ e: 2 mm polyp transverse colon, formalin. ? Quantity/Size: Two, averaging 0.3 cm. ? Tissue Description: Soft, yellow-harris tissue. ? Sections/Proces sing: (T1) ??ejr ? ---Clinical Information--- ? Specimen Submitted: ? A - 2-mm polyp trans colon ? Clinical History: ? Patient with diminutive polyps ? Clinical Diagnosis: ? Same ALBINA FRANKS 01/20/2013 9:37 AM EDT Alexey Saavedra MD PATHOLOGY/CYTOLOGY O FERNANDEZ Performing Organization Address City/[facility] Co de Phone Number ALBINA FRANKS * Specimen to Pathology (surgical or derm) (01/20/2013 9:37 AM EDT) AP Specimen 01/20/2013 9:37 AM EDT 01/20/2013 9:37 AM EDT Narrative ALBINA FRANKS - 01/20/2013 9:37 AM EDT Specimen requisition ordered. ??Separate Pathology report to follow Alexey Saavedra MD PATHOLOGY/CYTOLOGY O FERNANDEZ ALBINA FRANKS * COLONOSCOPY (01/20/2013 8:38 AM EDT) COLONOSCOPY [facility] Endoscopy Patient Name: Martha Pulliam ? Procedure Date: 01/20/2013 8:38 AM ? Date of : 1945 ? Age: 67 ? Order #: [id number] ? Procedure: ? Colonoscopy Indications: ? Screening for colorectal malignant ? neoplasm Providers: ? Alexey Saavedra MD, Sachin Wagner, ? BRETT, Jerilyn Spencer, Continuous Dryout Operator, ? Mariam Mcclain RN Referring MD: ?Bandar Dorantes MD Medicines: ? Midazolam 3 mg IV, Fentanyl 100 ? micrograms IV Complications: ? No immediate complications. Procedure: ? Pre-Anesthesia Assessment: ? - ASA Grade Assessment: I - A normal, ? healthy patient. ? The procedure, indications, benefits, ? risks [...] direct visualization, ? advanced to the terminal ileum. ? Careful inspection was made as the ? colonoscope was withdrawn. The ? colonoscopy was performed without ? difficulty. The patient tolerated the ? procedure well. The quality of the ? bowel preparation was excellent. ? Scope withdrawal time was 12 minutes. ? Findings: ? A sessile polyp was found in the transverse colon. ? The polyp was 2 mm in size. The polyp was removed ? with a cold biopsy forceps. Resection and retrieval ? were complete. ? A few small-mouthed diverticula were found in the ? sigmoid colon and in the descending colon. ? The terminal ileum appeared normal. ? Impression: ?- One 2 mm polyp in the transverse ? colon. Resected and retrieved. ? - Diverticulosis in the sigmoid colon ? and in the descending colon. ? - The examined portion of the ileum ? was normal. _ Alexey Saavedra MD 01/20/2013 9:24 AM This report has been signed electronically. Number of Addenda: 0 Note Initiated On: 01/20/2013 8:38 AM PROVATION 01/20/2013 8:38 AM EDT Bandar Dorantes MD GENERAL SURGICAL ORDERABLES PROVATION documented in this encounter Visit Diagnoses Not on filedocumented in this encounter Administered Medications Inactive Administered Medications - up to 3 most recent administrations Medication Order MAR Action Action Date Dose Rate Site fentaNYL 50mcg/mL injection ONCE PRN, Starting on Catina 01/20/13 at 0857, Until Catina 01/20/13 at 1350, Pain, Intra-Operative (Intra-Procedure), Routine Given 01/20/2013 9:00 AM EDT 50 mcg Given 01/20/2013 8:57 AM EDT 50 mcg midazolam (VERSED) injection ONCE PRN, Starting on Catina 01/20/13 at 0857, Until Catina 01/20/13 at 1350, Sleep, Intra-Operative (Intra-Procedure), Routine Given 01/20/2013 9:06 AM EDT 1 mg Given 01/20/2013 9:00 AM EDT 1 mg Given 01/20/2013 8:57 AM EDT 1 mg sodium chloride 0.9% infusion 50 mL/hr, Intravenous, CONTINUOUS, Starting on Catina 01/20/13 at 0845, Until Catina 01/20/13 at 1350, Endoscopy (Day of Procedure) New Bag 01/20/2013 8:45 AM EDT 50 mL/hr 50 mL/hr documented in this encounter Active and Recently Administered Medications Times are shown in EDT. Continuous Medication Order 01/18/2013 01/19/2013 01/20/2013 sodium chloride 0.9% infusion (CANCELED) 50 mL/hr, Intravenous, CONTINUOUS, Starting on Catina 8 at 0845, Until Catina 01/20/13 at 1350, Endoscopy (Day of Procedure) 0845 (New Bag - Prov ider: Regine Schaefer RN) PRN Medication Order 01/18/2013 01/19/2013 01/20/2013 fentaNYL 50mcg/mL injection (CANCELED) ONCE PRN, Starting on Catina 01/20/13 at 0857, Until Catina 01/20/13 at 1350, Pain, Intra-Operative (Intra-Procedure), Routine 0857 (Given - Provid er: Mariam Mcclain RN)0900 (Given - Provider: Mariam Mcclain RN) midazolam (VERSED) injection (CANCELED) ONCE PRN, Starting on Catina 01/20/13 at 0857, Until Catina 01/20/13 at 1350, Sleep, Intra-Operative (Intra-Procedure), Routine 0857 (Given - Provid er: Mariam Mcclain RN)0900 (Given - Provider: Mariam Mcclain RN)0906 (Given - Provider: Mariam Mcclain RN) documented in this encounter Care Teams Education Administrative Assistant Relationship Specialty Start Date End Date Bandar Dorantes MD [address] [place] [address] PCP - General 05/14/10 11/27/16 documented as of this encounter
--- OUTSIDE RECORDS SUMMARY | 2024-06-07 09:47 | XMS_ITS | Encounter Summary ---
[place] [address] Care Team Providers Care Cordwood Cutter Name Role Phone Bandar Dorantes MD Primary Care Provider + Reason for Visit * Reason Comments Blurred Vision Pt states he noticed blurred vision a couple wks ago OD-is there constantly-seems to shift w/head movement, floats around a little, no flashes Encounter Details Date Type Department Care Team (Late st Contact Info) Description 10/23/2010 9:30 AM EDT Office [place] [address] Nadege Rae, OD [facility] [place] [address] Posterior vitreous detachment of right eye (Primary Dx); Bilateral pseudophakia; Astigmatism; Presbyopia Discharge Disposition: Home Social History Tobacco Use Types Packs/Day Years Used Date Smoking Tobacco: Never Alcohol Use Standard Drinks/Week Comments No 0 (1 standard drink = 0.6 oz pur e alcohol) Sex and Gender Information Value Date Recorded Sex Assigned at Not on file Gender Identity Not on file Sexual Orientation Not on file documented as of this encounter Progress Notes * Nadege Rae, OD - 10/23/2010 10:19 AM EDT NathanaelKendall Pulliam is a 65 y.o. male who had a chief complaint of Blurred Vision. Has large PVD OD, clear OS. Clear IOLs OU. Good ocular health on today's exam. Assessment: Encounter Diagnoses Code Name Primary? 379.21S Posterior vitreous detachment of right eye Yes ??? V43.1R Bilateral pseudophakia ??? 367.20A Astigmatism ??? 367.4 Presbyopia Plan: 1) Refractive Error - MRx given to patient 2) PVD - pt ed to RTC OLI if increase in floaters; flashes; and/or VF loss. Follow up: 2 yr CEE New or altered medications: None Eyeglass Final Rx Sphere Cylinder [place] Add Right -1.50 +1.25 175 +2.50 Left -0.50 +2.50 Expiration Date: 10/23/2012 documented in this encounter Nursing Notes * 10/23/2010 9:30 AM EDT >> CEDRICK QIU October 23, 2010 9:41 AM Description:Patient presents with: Blurred Vision - Pt states he noticed blurred vision a couple wks ago OD-is there constantly-seems to shift w/head movement, documented in this encounter Plan of Treatment Upcoming Encounters Date Type Department Care Team (Late st Contact Info) Description 05/09/2025 10:45 AM EST Office Visit Dermatology at [place] [address] [place] [address] Melvin Ruiz MD [address], [place] [address] 06/08/2025 3:00 PM EST Office Visit [place] [address] Irina Kaufman, [place] [facility] [place] [address] documented as of this encounter Visit Diagnoses Diagnosis Posterior vitreous detachment of right eye- Primary Vitreous degeneration Bilateral pseudophakia Lens replaced by other means Astigmatism Astigmatism, unspecified Presbyopia documented in this encounter Care Teams Cordwood Cutter Relationship Specialty Start Date End Date Bandar Dorantes MD [address] [place] [address] PCP - General 05/14/10 11/27/16 documented as of this encounter
--- OUTSIDE RECORDS SUMMARY | 2024-06-07 09:47 | XMS_ITS | Encounter Summary ---
[place] [address] Care Team Providers Care Rooms Director Name Role Phone Bandar Dorantes MD Primary Care Provider + Encounter Details Date Type Department Care Team (Late st Contact Info) Description 12/18/2011 Orders [place] [phone] Vitaliy Lacy MD [facility] DR [place] [address] Hand pain (Primary Dx) Social History Tobacco Use Types Packs/Day Years [...] AM EST Office Visit Dermatology at [address] [place] [phone] Melvin Ruiz MD [address] [facility], [place] [address] 06/08/2025 3:00 PM EST Office [place] [phone] Irina Kaufman OD [facility] [place] [address] documented as of this encounter Visit Diagnoses Diagnosis Hand pain- Primary Pain in limb documented in this encounter Care Teams Rooms Director Relationship Specialty Start Date End Date Bandar Dorantes MD [address] [place] [address] PCP - General 05/14/10 11/27/16 documented as of this encounter
--- OUTSIDE RECORDS SUMMARY | 2024-06-07 09:47 | XMS_ITS | Encounter Summary ---
Author Organization [facility] [place] [address] Care Team Providers Care Town Manager Name Role Phone Bandar Dorantes MD Primary Care Provider + Encounter Details Date Type Department Care Team (Latest Contact Info) Description 01/20/2013 8:10 AM EDT - 01/20/2013 11:00 AM EDT Hospital En[place] [address] Alexey Portillo MD [facility] [place] [address] Discharge Disposition: Home Social History Tobacco Use [...] occurs please contact your M.D. Please call [phone] before 5 pm with problems, questions or concerns. After 5pm call [phone] and ask to speak with the principal data architect sex offender treatment professional. Discharge instructions reviewed with patient who expresses understanding. * Attachments The following attachments cannot be sent through Care Everywhere. * COLONOSCOPY: WHAT TO EXPECT AT HOME (KAZAKH) documented in this encounter Medications at Time [...] of this encounter H&P Notes * Alexey Portillo MD - 01/20/2013 8:43 AM EDT Gastroenterology [...] 10:45 AM EST Office Visit Dermatology at [place] [address] [facility] [place] [address] Melvin Ruiz MD [address] [facility], [place] [address] 06/08/2025 3:00 PM EST Office [place] [address] Irina Kaufman OD [facility] [place] [address] documented as of this encounter Procedures Procedure Name Priority Date/Time Associated Diagnosis Comments SURGICAL PATHOLOGY REPORT Routine 01/20/2013 9:37 AM EDT SPECIMEN TO PATHOLOGY Routine 01/20/2013 9:37 AM EDT COLONOSCOPY FLEXIBLE, WITH BX (WRVU 3.56) 01/20/2013 8:56 AM EDT screening COLONOSCOPY Routine 01/20/2013 8:38 AM EDT documented in this encounter Results * Surgical Pathology Report (01/20/2013 9:37 AM EDT) Surgical Pathology Report ? [facility] ? Provider: ?? ALEXEY PORTILLO ?Pt. Name: ?? Martha PULLIAM ? Acc #: ?[id number] ?Pt. ? Col Date: ?? 01/20/2013 ?/Sex: ?1945,(67 years),Male ? Rec Date: ?? 01/20/2013 ?LOC: ?4T ? SURGICAL PATHOLOGY ? ---Pathologic Diagnosis--- ? Transverse colon, polypectomy: ?Tubular adenoma. ? CR-0, CR-PX ? 01/21/13 ? AJE ? 01/21/13 Verified by: ? Antelmo Gilbert MD ? Pathologist ? (Electronic Signature) [...] ALBINA FRANKS 01/20/2013 9:37 AM EDT Alexey Portillo MD PATHOLOGY/CYTOLOGY O FERNANDEZ Performing Organization Address [facility] Co de Phone Number ALBINA FRANKS * Specimen to Pathology (surgical or derm) (01/20/2013 9:37 AM EDT) AP Specimen 01/20/2013 9:37 AM EDT 01/20/2013 9:37 AM EDT Narrative ALBINA MITCHELLIUM - 01/20/2013 9:37 AM EDT Specimen requisition ordered. ??Separate Pathology report to follow Alexey Portillo MD PATHOLOGY/CYTOLOGY O FERNANDEZ Performing Organization Address City/[facility] Co de Phone Number ALBINA FRANKS * COLONOSCOPY (01/20/2013 8:38 AM EDT) COLONOSCOPY [facility] Endoscopy Patient Name: Martha Pluliam ? Procedure Date: 01/20/2013 8:38 AM ? N: [id number] ? Date of : 1945 ? Age: 67 ? Order #: [id number] ? Procedure: ? Colonoscopy Indications: ? Screening for colorectal malignant ? neoplasm Providers: ? Alexey Portillo MD, Sachin Wagner, ? BRETT, Jerilyn Spencer, Fuel Pilot Engineer, ? Mariam Mclcain RN Referring MD: ?Bandar Dorantes MD Medicines: [...] the ileum ? was normal. _ Alexey Portillo MD 01/20/2013 9:24 AM This report has [...] MAR Action Action Date Dose Rate Site sodium chloride 0.9% infusion 50 mL/hr, Intravenous, [...] RN) documented in this encounter Care Teams Town Manager Relationship Specialty Start Date End Date Bandar Dorantes MD [address] [place] [address] PCP - General 05/14/10 11/27/16 documented as of this encounter
--- OUTSIDE RECORDS SUMMARY | 2024-06-07 09:47 | XMS_ITS | Encounter Summary ---
Author Organization [facility] [place] [address] Care Team Providers Care Cafe Or Restaurant Manager Name Role Phone Bandar Dorantes MD Primary Care Provider + Encounter Details Date Type Department Care Team (Late st Contact Info) Description 07/10/2010 4:40 PM EST Office [place] [phone] Levi Mendez PA [facility] [place] [address] Social History Tobacco Use Types Packs/Day Years [...] 10:45 AM EST Office Visit Dermatology at [address] [place] [phone] Melvin Ruiz MD [address] [facility] [address], [place] [address] 06/08/2025 3:00 PM EST Office [place] [address] Irina Kaufman OD [facility] [place] [address] documented as of this encounter Visit Diagnoses Not on filedocumented in this encounter Care Teams Cafe Or Restaurant Manager Relationship Specialty Start Date End Date Bandar Dorantes MD [address] [place] [address] PCP - General 05/14/10 11/27/16 documented as of this encounter
--- OUTSIDE RECORDS SUMMARY | 2024-06-07 09:47 | XMS_ITS | Encounter Summary ---
Author Organization [facility] [place] [address] Care Team Providers Care Circulator Name Role Phone Bandar Dorantes MD Primary Care Provider + Encounter Details Date Type Department Care Team (Late st Contact Info) Description 09/10/2010 8:20 AM EDT Office [place] [phone] Roland Garcia PA [facility] [place] [address] Social History Tobacco Use Types Packs/Day Years [...] 10:45 AM EST Office Visit Dermatology at [address] [place] [address] Melvin Ruiz MD [address] [facility] [address], [place] [address] 06/08/2025 3:00 PM EST Office [place] [phone] Irina Kaufman OD [facility] [place] [place] [address] documented as of this encounter Visit Diagnoses Not on filedocumented in this encounter Care Teams Circulator Relationship Specialty Start Date End Date Bandar Dorantes MD [address] [place] [address] PCP - General 05/14/10 11/27/16 documented as of this encounter
--- OUTSIDE RECORDS SUMMARY | 2024-06-07 09:47 | XMS_ITS | Encounter Summary ---
[place] [address] Care Team Providers Care City Maintenance Manager Name Role Phone Bandar Dorantes MD Primary Care Provider + Reason for Visit * Reason Comments Follow-up left carpal tunnel r elease 09/11/10 Encounter Details Date Type Department Care Team (Late st Contact Info) Description 09/26/2010 10:30 AM EDT Office [place] [phone] CLINIC, DR FULLER Carpal tunnel syndrome on left (Primary Dx) Discharge Disposition: Home Social History Tobacco Use Types Packs/Day Years Used Date Smoking Tobacco: Never Assessed Sex and Gender Information Value Date Recorded Sex Assigned at Not on file Gender Identity Not on file Sexual Orientation Not on file documented as of this encounter Progress Notes * Fariha Mccann RN - 09/26/2010 10:50 AM EDT POST-OP ENDOSCOPIC CARPAL TUNNEL RELEASE Date of Surgery:09/11/10 Side/Site:left Suture removed:09/26/10 Incision Assessment:site clean,well approximated no sign of infection or irritation Light activity,progress to full activity by 30 days after surgery. Resolution of nocturnal dysthesia: YES Or NO yes If NO is Surgeon aware: Instructions for messaging gomes surface of hand twice daily.Use general purpose lotion,cocoa butter or Vitamin E oil. Return to work: YES/NO yes Return to work one hand: Return to work two hand: yes Patient to call if further follow up is needed. Patient reminded numbness may persist up to one year.If numbness was severe pre- op,it may never resolve. documented in this encounter Plan of Treatment Upcoming Encounters Date Type Department Care Team (Late st Contact Info) Description 05/09/2025 10:45 AM EST Office Visit Dermatology at [place] [address] [facility] [address] [place] [address] Melvin Ruiz MD [address] [facility] [address], [place] [address] 06/08/2025 3:00 PM EST Office [place] [address] Irina Kaufman [facility] [place] [address] documented as of this encounter Visit Diagnoses Diagnosis Carpal tunnel syndrome on left- Primary Carpal tunnel syndrome documented in this encounter Care Teams City Maintenance Manager Relationship Specialty Start Date End Date Bandar Dorantes MD [address] [place] [address] PCP - General 05/14/10 11/27/16 documented as of this encounter
--- OUTSIDE RECORDS SUMMARY | 2024-06-07 09:47 | XMS_ITS | Encounter Summary ---
Author Organization [facility] [place] [address] Care Team Providers Care Trombone Slide Assembler Name Role Phone Unavailable Primary Care Provider Unavailabl e Encounter Details Date Type Department Care Team (Late st Contact Info) Description 05/06/2010 7:40 AM EST Procedure [place] [address] Social History Tobacco Use Types Packs/Day Years [...] 10:45 AM EST Office Visit Dermatology at [address] [place] [address] Melvin Ruiz MD [address] [facility] [address], [place] [address] 06/08/2025 3:00 PM EST Office [place] [address] Irina Kaufman OD [facility] [place] [place] [address] documented as of this encounter Visit Diagnoses Not on filedocumented in this encounter
--- OUTSIDE RECORDS SUMMARY | 2024-06-07 09:47 | XMS_ITS | Encounter Summary ---
Author Organization [facility] [place] [address] Care Team Providers Care Firefighter Name Role Phone Bandar Dorantes MD Primary Care Provider + Reason for Visit * Reason Comments Skin Check * Consultation (Routine) - Specialty Diagnoses / Procedures Referred By Aurelia devi Referred To Contact Dermatology Diagnoses Actinic keratosis Procedures Actinic keratosis Bandar Dorantes MD [address] [place] [address] Melvin Ruiz MD [address] [place] [address], [facility] [place] [address] Referral ID Status Reason Start Date Expiration Date V isits Requested Visits Authorized [id number] 05/06/2016 05/06/2017 1 1 Encounter Details Date Type Department Care Team (Late st Contact Info) Description 07/25/2016 2:45 PM EST Office Visit Dermatology at [address] [address] Melvin Ruiz MD [address] [place] [address], [facility] [place] [address] [place] (actinic keratosis) Social History Tobacco Use [...] Progress Notes * Melvin Ruiz MD - 07/25/2016 2:45 PM EST Problem is skin lesion of concern. Stevo follows up and is now 70. He in particularly is concerned about some rough spots on his forehead and scalp. Physical examination reveals small actinic keratoses present on the balding parietal scalp and one on the central forehead. There is no evidence of any malignant lesions. A total of 3 subsites are noted. He has some benign stucco keratosis on his ankles. ASSESSMENT AND PLAN: 1. Actinic keratoses facial. a. LN2 x 2 applied to each of 3 sites. 2. Stucco keratoses. a. The patient reassured about benign stucco keratoses on legs. No treatment necessary. Return to clinic here will be p.r.n. cc: Bandar Dorantes MD documented in this encounter Plan of Treatment Upcoming Encounters Date Type Department Care Team (Late st Contact Info) Description 05/09/2025 10:45 AM EST Office Visit Dermatology at [place] [address] [place] [phone] Melvin Riuz MD [address] [facility], [place] [address] 06/08/2025 3:00 PM EST Office [place] [address] Irina Kaufman OD [facility] [place] [address] documented as of this encounter Visit Diagnoses Diagnosis [place] (actinic keratosis) Actinic keratosis documented in this encounter Care Teams Firefighter Relationship Specialty Start Date End Date Bandar Dorantes MD [address] [place] [address] PCP - General 05/14/10 11/27/16 documented as of this encounter
--- OUTSIDE RECORDS SUMMARY | 2024-06-07 09:47 | XMS_ITS | Encounter Summary ---
[place] [address] Care Team Providers Care Computer Language Coder Name Role Phone Bandar Dorantes MD Primary Care Provider + Encounter Details Date Type Department Care Team (Latest Contact Info) Description 09/11/2010 8:50 AM EDT - 09/11/2010 10:25 AM EDT Hospital Encounter [place] [address] Vitaliy Lacy MD [facility] [place] [address] Discharge Disposition: Home Social History Tobacco Use Types Packs/Day Years Used Date Smoking Tobacco: Never Assessed Sex and Gender Information Value Date Recorded Sex Assigned at Not on file Gender Identity Not on file Sexual Orientation Not on file documented as of this encounter Medications at Time of Discharge Medication Sig Dispensed Refills Start Date End Date ibuprofen (ADVIL;MOTRIN) 800 mg tablet 02/25/2012 atorvastatin (LIPITOR) 20 mg tablet 09/1002/25/2012 Aspirin 81 mg TbEF 09/10/2010 2 multivitamin (THERAGRAN) tablet 1 02/25/2012 documented as of this encounter Plan of Treatment Upcoming Encounters Date Type Department Care Team (Late st Contact Info) Description 05/09/2025 10:45 AM EST Office Visit Dermatology at [address] [place] [phone] Melvin Ruiz MD [address] [facility] [address], [place] [address] 06/08/2025 3:00 PM EST [place] [address] Irina Kaufman OD [facility] [place] [place] [address] documented as of this encounter Procedures Procedure Name Priority Date/Time Associated Diagnosis Comments EKG 12-LEAD Routine 09/10/2010 9:08 AM EDT documented in this encounter Results * EKG 12-LEAD (09/10/2010 9:08 AM EDT) Ventricular rate 67 BPM MUSE SYSTEM Atrial Rate 67 BPM MUSE SYSTEM P-R Interval 206 ms MUSE SYSTEM QRS Duration 90 ms MUSE SYSTEM Q-T Interval 392 ms MUSE SYSTEM QTC Calculated (Bezet) 414 ms MUSE SYSTEM Calculated P Commerce 44 degrees MUSE SYSTEM Calculated R Commerce 0 degrees MUSE SYSTEM Calculated T Commerce 50 degrees MUSE SYSTEM INTERPRETATION Sinus rhythm with frequent Premature ventricular complexes Otherwise normal ECG No previous ECGs available Confirmed by MD Eliecer, Osiel ([id number]) on 09/10/2010 4:19:56 PM MUSE SYSTEM 09/10/2010 9:08 AM EDT 09/10/2010 4:19 PM EDT Unknown ECG ORDERABLES MUSE SYSTEM documented in this encounter Visit Diagnoses Not on filedocumented in this encounter Active and Recently Administered Medications Care Teams Computer Language Coder Relationship Specialty Start Date End Date Bandar Dorantes MD [address] [facility] [address] PCP - General 05/14/10 11/27/16 documented as of this encounter
--- OUTSIDE RECORDS SUMMARY | 2024-06-07 09:47 | XMS_ITS | Encounter Summary ---
[place] [address] Care Team Providers Care Hydro Generation Supervisor Name Role Phone Bandar Dorantes MD Primary Care Provider + Encounter Details Date Type Department Care Team (Late st Contact Info) Description 08/22/2010 7:55 AM EST Office [place] [phone] Vitaliy Lacy MD [facility] [place] [address] Social History Tobacco Use Types Packs/Day Years [...] AM EST Office Visit Dermatology at [address] [place] [phone] Melvin Ruiz MD [address] [facility] [address], [place] [address] 06/08/2025 3:00 PM EST Office [place] [address] Irina Kaufman OD [facility] [place] [address] documented as of this encounter Visit Diagnoses Not on filedocumented in this encounter Care Teams Hydro Generation Supervisor Relationship Specialty Start Date End Date Bandar Dorantes MD [address] [place] [address] PCP - General 05/14/10 11/27/16 documented as of this encounter
--- OUTSIDE RECORDS SUMMARY | 2024-06-07 09:47 | XMS_ITS | Encounter Summary ---
Author Organization [facility] [place] [address] Care Team Providers Care Leather Stripping Machine Operator Name Role Phone Bandar Dorantes MD Primary Care Provider + Reason for Visit * Reason Comments Bilateral Hand Pain Bilat CTR, 2010 Encounter Details Date Type Department Care Team (Late st Contact Info) Description 02/25/2012 9:50 AM EDT Office [place] [address] Lenny Layc MD [facility] [place] [address] Bilateral Wrist arthritis (Primary Dx) Discharge Disposition: Home Social History [...] Sign Reading Time Taken Comments Blood Pressure 158/86 02/25/2012 9:58 AM EDT Pulse - - Temperature - - Respiratory Rate - - Oxygen Saturation - - Inhaled Oxygen Concentration - - Weight 99.8 kg (220 lb) 02/25/2012 9:58 AM EDT Height 175.3 cm (5' 9) 02/25/2012 9:58 AM EDT Body Mass Index 32.49 02/25/2012 9:58 AM EDT documented in this encounter Progress Notes * Jordan Lake MD - 02/25/2012 10:58 AM EDT Mr. Pulliam is a right-hand dominant 66-year-old male who is coming today for evaluation regarding right and left wrist pain. He has had a history of carpal tunnel release since [address] Lacy, both sides have different progress that have done excellent. He notes his right wrist is slightly more painful than his left. Pain is based over the dorsal aspect of the wrist and both flexion and extensions of the wrist. He is using minimum ibuprofen. 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. He never had any movement of bones within the wrist that is normal, but he does occasionally have hearing of crepitus within the wrist. PAST MEDICAL HISTORY: None. PAST SURGICAL HISTORY: Carpal tunnel, thigh surgery. MEDICATIONS: Lipitor, aspirin, and occasional ibuprofen. ALLERGIES: NONE. SOCIAL HISTORY: Nonsmoker, occasional drinker. 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. PHYSICAL EXAMINATION: Examination of the bilateral wrists reveals no gross tenderness over the dorsal wrist or volar wrist. He can extend the right wrist to 60 degrees and left wrist to 80 degrees. He can flex to 45 degrees bilaterally. This does cause pain with extreme motion. He has a 2+ radial pulse. He is firing his EPL, FPL, and interosseous. He has no palpable clunk with ulnar deviation of the wrist. There is no pain with radioulnar deviation of the wrist. Sensation is intact to light touch with radial and median nerve distribution. Wrist x-rays show arthritic changes of the potentially old bilateral scaphoid lunate ligament disruptions or injuries with secondary arthritic changes to the radiocarpal and STT joints. He has significant basal joint arthritis bilaterally. The majority focus to his arthritis appears to be on the dorsal aspect of the radial carpal joint due to some subluxation. ASSESSMENT: 1. 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 2. Satisfactory outcome, bilateral carpal tunnel release. PLAN: Today, reviewed with him that he has slightly posttraumatic arthritis secondary to some ligamentous injury in the distant past. At this time, we recommended an occasional nonsteroidal antiinflammatory use. If this pain does become progressive that it is quite bothersome that we could offer further pain relieving treatments including partial fusions or bone excisions. If this did become an issue, a CAT scan of bilateral wrists would need to be undertaken. At this point, he is quite happy and is happy to know that it is just arthritis and that he can live with it. He will follow up on a p.r.n. basis. I examined Martha Pulliam and I agree with Dr. Raymundo's note. LENNY LACY MD documented in this encounter Plan of Treatment Upcoming Encounters Date Type Department Care Team (Late st Contact Info) Description 05/09/2025 10:45 AM EST Office Visit Dermatology at [place] [address] [facility] [place] [address] Melvin Ruiz MD [address] [facility] [address], [place] [address] 06/08/2025 3:00 PM EST Office [place] [address] Irina Kaufman OD [facility] [place] [address] documented as of this encounter Visit Diagnoses Diagnosis Bilateral Wrist arthritis- Primary Unspecified arthropathy, forearm documented in this encounter Care Teams Leather Stripping Machine Operator Relationship Specialty Start Date End Date Bandar Dorantes MD [address] [place] [address] PCP - General 05/14/10 11/27/16 documented as of this encounter
== END 2024-06-07 09:45 | disposition home or self-care (01) ==
LOC: LBO 09:44
PROVIDERS: PCP Nurse Practitioner Adult Health; Visit Provider Nurse Practitioner Adult Health
DX: R73.01 Impaired fasting glucose (principal); I10 Essential (primary) hypertension; E78.2 Mixed hyperlipidemia
CPT/HCPCS: 36415; 80048; 80061; 83036

== ENCOUNTER 2025-04-06 07:53 | Observation (INO) | payer MEDICARE, SELFPAY ==
[2025-04-06] VITALS (24 sets, daily range): BP systolic 126–168; BP diastolic 76–86; PULSE 60–94; RESP 15–23; TEMP 36.6–37.3; O2SAT 92–97
--- NOTE | 2025-04-06 07:45 | RT.EKG_ITS ---
APPROVED REPORT Exam: Resting ECG Reason for Exam: weakness Patient Location: E HR:85 bpm ECG Measurements Heart Rate 85 AXIS SD [id number] P [id number] QRSd 151 QRS -89 QT 497 T 59 QTc 590 Conclusion Atrial flutter with predominant 3:1 AV block...A-rate 245, multiple Ps Ventricular premature complex...V complex w/ short R-R interval Right bundle branch block...QRSd>120, terminal axis(90,270) ST elevation secondary to atrial flutter Prolonged QT interval...QTc >500mS No Occlusion IL
--- NOTE | 2025-04-06 07:55 | W.ED.GENAD ---
Discharge Plan Disposition Patient Disposition: Admit to [facility] Discharge Details Clinical Impression: Acute kidney injury, Hyperbilirubinemia, SBO (small bowel obstruction), Acute lactic acidosis Admit Date/Time: 04/06/25 10:54 Admit Provider: Leo Dueñas Attending Provider: Leo Dueñas Primary Care Provider: Karen Hall ED Provider: Abraham Barba Discharge Data Discharge Date/Time-TO BE ENTERED AT DEPARTURE: 04/06/25 12:47 HPI General Date/Time Provider Initiated Documentation: 04/06/25 07:55. HPI Narrative: MDM This is an overall quite well-appearing normothermic and nontachycardic 79-year-old male with abdominal tenderness pain concern for possibility of SBO for which patient will undergo CT abdomen pelvis. He is not having chest pain however his ECG showing rate controlled atrial flutter. He does also have a prolonged QTc in the setting of vomiting we will treat him empirically with 2 g of magnesium in the event that he has hypomagnesemia. Compared to his prior ECG dated 2 years ago rate controlled atrial flutter is new. Patient does have inferior T wave inversions and ST segment elevation in aVR. Given cough cold symptoms also swab for influenza. No rash to abdomen to suggest zoster. No pain out of proportion to suggest necrotizing soft tissue infection. No focal weakness to suggest CVA so I do not feel patient is a candidate for lytics. Equal breath sounds so doubt pneumothorax in the absence of trauma. No fevers to suggest pneumonia so we will defer chest x-ray. I considered sepsis as patient has a heart rate greater than 90 however denies fevers and is well-appearing will defer broad-spectrum antibiotics at this juncture. Will reassess following labs and imaging. 9:05 AM Comprehensive metabolic panel with acute kidney injury. Mildly elevated T. bili. Elevated BUN new anion gap. Normal bicarbonate. Mild hyperglycemia but not consistent with DKA. Normal reassuring initial troponin. Lipase within normal limits. Normal reassuring magnesium. Given LUCAS will provide fluids and change to noncontrast CT scan. Initial reassuring troponin. 9:50 AM Patient found on CT to have SBO with thickened loops of bowel and ascites with stranding. He has been n.p.o. since midnight. He is not nauseous nor vomiting so I did not place NG tube. No history of inflammatory bowel disease. Not septic. [place] [facility] [place] 5-[place] return interval. I reached out to on-call surgeon Dr. Dueñas to discuss patient's case. I ordered patient a 500 cc crystalloid bolus. 10:45 AM I was in touch with Dr. Dueñas from general surgery who will come to evaluate the patient. 11 AM I will touch with Dr. Dueñas who graciously agreed to hospitalize patient. He requested a lactate which was 4.8. HPI This is a patient presenting with weakness. The patient experienced a sudden onset of flu-like symptoms after lunch on 04/05/2025, accompanied by an upset stomach. He did not have diarrhea but noticed a decrease in bowel movements. He began vomiting, primarily producing bile, which continued throughout the night, preventing him from sleeping. He feels as though he has strained his core muscles, making it difficult for him to sit down, stand up, and transition between these positions. He did not eat anything after 1:00 PM on 04/05/2025 and did not take his medication last night. He suspects a possible blockage in his stomach, although he has no history of such issues. He reports no chest pain or breathing difficulties. He checked his heart rate using a [employer]ia[employer] device and found no abnormalities. He reports no weakness in his hands or arms and has not experienced any falls. He also reports no burning sensation during urination, although he has not urinated much due to limited fluid intake. The last time he was able to consume anything was at 4:00 PM on 04/05/2025 when he drank a small amount of ranjeet ruth. He has no history of inflammatory bowel disease such as Crohn's or ulcerative colitis. He reports no fever. Exam General: Well-appearing in no acute distress speaking in complete sentences. Head: Normocephalic, atraumatic. Eye: Extraocular eye movements intact. No conjunctival injection. No scleral icterus. Ear, nose, mouth, throat: Grossly normal inspection. Normal voice, handling secretions normally. Neck: Trachea midline. Cardiovascular: Well-perfused distal extremities. Regular rate regular rhythm. Respiratory: Nonlabored respiration. Clear lungs bilaterally. Gastrointestinal: Nondistended abdomen. Soft. Lower abdominal tenderness. No rebound. No guarding. Musculoskeletal: No edema. Moving all 4 extremities spontaneously. Skin: Normal for age and race, grossly normal temperature and turgor. No acute rash. Neurologic: Alert and appropriate, no apparent acute deficits. No focal neurological deficits. Related Data Home Medications ?Medication ?Instructions ?Recorded ?Confirmed multivitamin with minerals 1 ea PO DAILY 09/14/12 04/06/25 atorvastatin 20 mg tablet See Rx Instructions .Route 04/25/24 04/06/25 .COMPLEX #90 tabs losartan 50 mg tablet See Rx Instructions .Route 04/25/24 04/06/25 .COMPLEX #90 tabs sildenafil 100 mg tablet See Rx Instructions .Route 12/12/24 04/06/25 .COMPLEX #10 tabs Previous Rx's ?Medication ?Instructions ?Recorded atorvastatin 20 mg tablet See Rx Instructions .Route 04/25/24 .COMPLEX #90 tabs losartan 50 mg tablet See Rx Instructions .Route 04/25/24 .COMPLEX #90 tabs sildenafil 100 mg tablet See Rx Instructions .Route 12/12/24 .COMPLEX #10 tabs Allergies Allergy/AdvReac Type Severity Reaction Status Date / Time lisinopril AdvReac Intermediate cough Verified 04/06/25 08:02 General SABRINA: 4 Medical Decision Making Quality:SDOH Health Related Social Needs: Health related social needs details N/A PFSH All Active Problems (Updated 04/06/25 @ 11:00 by Abraham Barba MD) Acute lactic acidosis (Acute) SBO (small bowel obstruction) (Acute) Hyperbilirubinemia (Acute) Acute kidney injury (Acute) Blepharitis (Acute ~2023) SCC (squamous cell carcinoma), 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, excoriated, present at specimen edges Primary hypertension (Acute ~2012) Reduced speech discrimination (Acute) Sensorineural hearing loss of both ears (Acute) Obesity, unspecified (Acute 11/28/11) Male erectile disorder (Acute 06/02/13) Impaired fasting glucose (Chronic 08/09/12) Hyperlipidemia (Chronic 11/17/12) PCEq risk 22% LDL baseline 177 Adenoma of large intestine (Acute 03/02/13) 09/12/2185-[id number] polyp-fragments of tubular adenoma; transverse polyp-sessile [place]errated [place] [place] History (Updated 04/06/25 @ 11:00 by Abraham Barba MD) Dysuria Mild burning sensation (before/with urin) .. 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 [facility] [place] Bradycardia captain fire prevention bureau, stable--HR bradycardic, but it comes back down Vocal cord nodule Left Dysphonia Cataracts, both eyes Posterior vitreous detachment, right eye H/O Ocular migraine Pseudophakia of both eyes Fatigue (06/02/13) Carpal tunnel syndrome, unspecified upper limb (11/17/12) Actinic keratosis (11/24/14) Surgical History S/P skin biopsy (08/07/23) Dr Joseph Merlos posterior parietal scalp History of bilateral cataract extraction (~2009) History of strabismus surgery (~1981) Hx of tonsillectomy (~1959) H/O colonoscopy (~2021) Family History Mother Mental disorder Alzheimer Disease Dementia Lewy body dementia Sister Dementia Lewy body dementia Maternal Grandmother Dementia Lewy body dementia Father COPD (chronic obstructive pulmonary disease) Heart disease of [place] Maternal Grandfather Heart disease [place] at age 57 Social History Smoking/Tobacco Use Status: Never Smoking risk assessment performed?: Yes Alcohol Intake: never Drug use: Never Substance use type: does not use Adopted: No Caregiver/Support person: No Foster care: No Household members: spouse Housing: house Number of Children: 4 number of grandchildren: 7 Communication Needs: Hard of Hearing Education Level: master's degree Do you need help understanding health information?: Rarely 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[employer]) Pets and animals: No Sexually active: Yes Do you think of yourself as: straight/heterosexual Current gender identity: male What is your relationship status?: How often do you talk on the phone with friends or family?: three or more times per week How often do you get together with friends or relatives?: three or more times per week How often do you attend hoahaoism or mu-ism services?: decline to answer Do you belong to any clubs or organized social groups?: no Panel score (0-1 are the most socially isolated patients): 2 What type of physical activity do you participate in: bicycling, regular exercise and other Details: snow shoes when he can Duration: 15-30 minutes/day Frequency: 5-6 times per week Special amanuel needs: No Seatbelt use: always Helmet use: No (N/A) Drive intox or ride w/intox cart driver: No Working smoke detector in home: Yes Fire extinguisher in home: Yes Carbon monox detector in home: Yes Do you feel safe at home: Yes Do you feel safe in your relationship?: Yes Victim of physical abuse: No Victim of emotional abuse: No Victim of sexual abuse: No Would you like helpful sources: No
[2025-04-06 08:45] LABS: Abs Immature Grans 0.12 10^3/uL (0.0-0.06); HCT 52.3 % (40.0-50.0); HGB 17.6 g/dL (13.5-17.5); Immature Grans % 0.5 %; MCH 28.9 pg (27.0-33.0); MCHC 33.7 % (32.0-36.0); MCV 86 fL (80-95); MPV 11.6 fL (8.0-11.0); Platelet Count 229 10^3/uL (130-400); RBC 6.08 10^6/uL (4.36-5.78); RDW 13.2 % (11.8-14.1); RDW-SD 41.2 fL; WBC 23.58 10^3/uL (4.4-10.8)
[2025-04-06] MEDS: MAGNESIUM SULFATE 2 GM/50 ML BAG IVINF (08:54)
[2025-04-06 08:55] LABS: AST 26 U/L (15-37); Albumin 4.2 g/dL (3.4-5.0); Alkaline Phosphatase 77 U/L (46-116); Anion Gap 19.4 mmol/L (3-11); BUN 31 mg/dL (7-18); Bilirubin, Total 1.4 mg/dL (0.2-1.0); CO2 23.6 mmol/L (21.0-32.0); Calcium 9.6 mg/dL (8.5-10.1); Chloride 94 mmol/L (98-107); Estimated GFR 40.75 (mL/min/1.73m2); Glucose 234 mg/dL (74-106); Lipase 21 U/L (<78); Magnesium 2.3 mg/dL (1.8-2.4); Potassium 3.9 mmol/L (3.5-5.1); Sodium 137 mmol/L (136-145); Total Protein 8.1 g/dL (6.4-8.2); Troponin I 11 ng/L (<or=76)
--- NOTE | 2025-04-06 09:00 | DI.CT_ITS ---
Exam(s) CT ABDOMEN PELVIS WO EXAM: CT ABDOMEN PELVIS WO CLINICAL HISTORY: Abdominal pain. TECHNIQUE: Imaging Protocol: Axial computed tomography images with coronal and sagittal reformatted images were created and reviewed. Oral: / no COMPARISON: No exams were available for comparison FINDINGS: Lung Bases: No acute findings. Liver: Normal density. No suspicious mass. Gallbladder and biliary tract: No radiodense calculus or biliary dilation. Pancreas: Normal density. No abnormal calcifications or inflammatory process. Spleen: Normal. Kidneys: Normal size, contour and axis. No radiodense stones. No obstructive uropathy. No suspicious masses seen. Bilateral renal cysts. Adrenal glands: 17 millimeter nodule noted at the upper aspect of the left adrenal gland. Additional 17 millimeter nodule at the lower portion of the left adrenal gland. Lymph nodes: Within normal limits. Vasculature: Abdominal aorta non-dilated. Soft tissues: Unremarkable. Bladder: No wall thickening. No mass or calculi. Bowel: There is appy dilatation and wall thickening involving loops of small bowel in the left and center aspects of the abdomen. There is haziness in the mesentery. More distal small bowel loops are decompressed. Findings are consistent with obstruction. There is a large quantity of stool in the right and proximal transverse colon. The descending and rectosigmoid are decompressed. The appendix appears normal. There is diverticulosis of the sigmoid but no evidence of diverticulitis. Peritoneal cavity: Ascites is noted around the liver and extending into the right paracolic gutter into the pelvis. There is a small amount of fluid around the spleen. There is haziness of the mesentery. Reproductive organs: Unremarkable. Bones: Unremarkable for age. IMPRESSION: Findings consistent with small-bowel obstruction with wall thickening of bowel loops in the left and central abdomen. There is significant amount of ascites as well as mesenteric stranding. Two nodules on the left adrenal gland are indeterminate. Further evaluation with contrast-enhanced CT or MRI could be considered. Findings called to Dr. Barba of the emergency department. RADIATION DOSE DELIVERED: 594.67mGy.cm Total DLP DATA REPOSITORY: All CT scans at this facility are submitted to the National Radiology Data Registry (NRDR) Dose Index Registry (DIR) with the [employer] (ACR). RADIATION OPTIMIZATION: All CT scans at this facility use at least one of these dose optimization techniques: automated exposure control; mA and/or kV adjustment per patient size (includes targeted exams where dose is matched to clinical indication); or iterative reconstruction.
[2025-04-06] MEDS: Normal Saline 500 ML IV ×2 (09:16→11:08)
[2025-04-06 09:36] LABS: Troponin I 13 ng/L (<or=76)
[2025-04-06 09:38] LABS: ALT 35 U/L (16-63)
[2025-04-06 09:55] LABS: RBC Morphology Normal
--- NOTE | 2025-04-06 10:48 | W.PM.HP.N ---
Date of service: 04/06/25 Time of Service: 10:48 Assessment and Plan Assessment and plan (1) SBO (small bowel obstruction): Status: Acute Assessment and plan: Certainly, his leukocytosis is concerning, and I also have some worries about his CT scan, specifically regarding a little bit of free fluid (albeit no free air). Although there are some elements of partial small bowel obstruction evident on the CT scan, and certainly some of his symptoms fit with that, the fact that he had no abdominal surgical history make adhesive small bowel obstruction less likely. Although he does have evidence of diverticulosis, and I suppose some subclinical episodes of diverticulitis may contribute to some adhesive disease. More worrisome would be mesenteric ischemia, although he has no symptoms of that currently. Since he seems to be doing so well since his presentation to the ER, I think some ongoing resuscitation with intravenous fluids is very reasonable here. I will repeat the lactate to ensure that that starts to improve. I think at least a trial of nonoperative management is very reasonable, and in the big picture of things is the safest course of action at this time. History of Present Illness History of Present Illness Chief Complaint: Abdominal pain Narrative: Eliecer, who prefers to go by Stevo, is 79 years old. He came to the emergency department this morning complaining of abdominal pain with nausea and vomiting that began yesterday. He tells me the night before last he did experience some mild abdominal discomfort that was treated with Tums. He did not really think much of this. He went to bed, woke up feeling about his usual self. He was okay through the morning time, then had hamburger for lunch. Not long thereafter he began experiencing sharp abdominal pain, mostly in the periumbilical area. It was stabbing, and associated with nausea, and rapid onset of multiple bouts of vomiting. He did not really experience any relief with vomiting, and in fact the discomfort may have become worse through the evening time. He was able to get a little bit of sleep, but with no resolution of the symptoms through the night, and maybe even some worsening of the pain this morning, he felt like evaluation in the emergency department was very reasonable. When he got here, his hemodynamics were favorable. He did have evidence of acute kidney injury, most likely from some mild dehydration. But he was also found to have a leukocytosis around 24,000. He underwent a CT scan that demonstrated findings consistent with a small bowel obstruction with wall thickening of bowel loops in the left and central abdomen. This is a nonopacified study as he has evidence of acute kidney injury. Review of Systems Constitutional Constitutional: Reports fatigue, Denies fever(s), Reports poor appetite, Denies weakness and Denies weight loss Eyes Eyes: Reports system reviewed and no additional complaints, except as documented ENT Ears, Nose, Mouth, and Throat: Reports system reviewed and no additional complaints, except as documented Cardiovascular Cardiovascular: Denies chest pain and Denies dyspnea Respiratory Respiratory: Denies dyspnea Gastrointestinal Gastrointestinal: Reports abdominal pain, Reports belching, Reports nausea and Reports vomiting Genitourinary Genitourinary: Reports system reviewed and no additional complaints, except as documented Musculoskeletal Musculoskeletal: Reports system reviewed and no additional complaints, except as documented Neurologic Neurologic: Reports system reviewed and no additional complaints, except as documented and Denies weakness Psychiatric Psychiatric: Reports system reviewed and no additional complaints, except as documented Endocrine Endocrine: Reports fatigue Hematologic/Lymphatic Hematologic/Lymphatic: Denies easy bleeding and Denies easy bruising PFSH All Active Problems (Updated 04/06/25 @ 11:00 by Abraham Barba MD) Acute lactic acidosis (Acute) SBO (small bowel obstruction) (Acute) Hyperbilirubinemia (Acute) Acute kidney injury (Acute) Blepharitis (Acute ~2023) SCC (squamous cell carcinoma), 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, excoriated, present at specimen edges Primary hypertension (Acute ~2012) Reduced speech discrimination (Acute) Sensorineural hearing loss of both ears (Acute) Obesity, unspecified (Acute 11/28/11) Male erectile disorder (Acute 06/02/13) Impaired fasting glucose (Chronic 08/09/12) Hyperlipidemia (Chronic 11/17/12) PCEq risk 22% LDL baseline 177 Adenoma of large intestine (Acute 03/02/13) 09/12/2160-[id number] polyp-fragments of tubular adenoma; transverse polyp-sessile [place]errated [place] [place] History (Updated 04/06/25 @ 11:00 by Abraham Barba MD) Dysuria Mild burning sensation (before/with urin) .. 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, stable--HR bradycardic, but it comes back down Vocal cord nodule Left Dysphonia Cataracts, both eyes Posterior vitreous detachment, right eye H/O Ocular migraine Pseudophakia of both eyes Fatigue (06/02/13) Carpal tunnel syndrome, unspecified upper limb (11/17/12) Actinic keratosis (11/24/14) Surgical History S/P skin biopsy (08/07/23) Dr Joseph Merlos posterior parietal scalp History of bilateral cataract extraction (~2009) History of strabismus surgery (~1981) Hx of tonsillectomy (~1959) H/O colonoscopy (~2021) Family History Mother Mental disorder Alzheimer Disease Dementia Lewy body dementia Sister Dementia Lewy body dementia Maternal Grandmother Dementia Lewy body dementia Father COPD (chronic obstructive pulmonary disease) Heart disease of [place] Maternal Grandfather Heart disease [place] at age 57 Social History Smoking/Tobacco Use Status: Never Smoking risk assessment performed?: Yes Alcohol Intake: never Drug use: Never Substance use type: does not use Adopted: No Caregiver/Support person: No Foster care: No Household members: spouse Housing: house Number of Children: 4 number of grandchildren: 7 Communication Needs: Hard of Hearing Education Level: master's degree Do you need help understanding health information?: Rarely 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[employer]) Pets and animals: No Sexually active: Yes Do you think of yourself as: straight/heterosexual Current gender identity: male What is your relationship status?: How often do you talk on the phone with friends or family?: three or more times per week How often do you get together with friends or relatives?: three or more times per week How often do you attend mormonism or congregation services?: decline to answer Do you belong to any clubs or organized social groups?: no Panel score (0-1 are the most socially isolated patients): 2 What type of physical activity do you participate in: bicycling, regular exercise and other Details: snow shoes when he can Duration: 15-30 minutes/day Frequency: 5-6 times per week Special amanuel needs: No Seatbelt use: always Helmet use: No (N/A) Drive intox or ride w/intox local tanker truck driver: No Working smoke detector in home: Yes Fire extinguisher in home: Yes Carbon monox detector in home: Yes Do you feel safe at home: Yes Do you feel safe in your relationship?: Yes Victim of physical abuse: No Victim of emotional abuse: No Victim of sexual abuse: No Would you like helpful sources: No Meds Allergies and Home Medications Allergies Allergy/AdvReac Type Severity Reaction Status Date / Time lisinopril AdvReac Intermediate cough Verified 04/06/25 08:02 Home Medications ?Medication ?Instructions ?Recorded ?Confirmed ?Type multivitamin with minerals 1 ea PO DAILY 09/14/12 04/06/25 History Varicella-Zoster Ge/As01b/Pf 50 mcg IM ONCE ##1 11/25/17 04/06/25 Clinic [Shingrix Vial Kit] atorvastatin 20 mg tablet See Rx Instructions .Route 04/25/24 04/06/25 Rx .COMPLEX #90 tabs losartan 50 mg tablet See Rx Instructions .Route 04/25/24 04/06/25 Rx .COMPLEX #90 tabs sildenafil 100 mg tablet See Rx Instructions .Route 12/12/24 04/06/25 Rx .COMPLEX #10 tabs Exam Const General: cooperative, comfortable and no acute distress Orientation: alert, awake and oriented x3 Neck Neck: normal visual inspection, full ROM and no lymphadenopathy Resp Effort & Inspection: normal respiratory effort and able to speak in complete sentences Auscultation: clear to auscultation bilaterally Cardio Rate: regular rate Rhythm: regular rhythm Heart Sounds: S1 normal and S2 normal GI Inspection: normal to inspection and non-distended Palpation: soft, no guarding and nontender Results Imaging Abdomen CT scan report/results: report reviewed and image reviewed CT scan - pelvis: report reviewed and image reviewed Labs 04/06/25 08:05 04/06/25 08:05 Labs: Laboratory Results - last 24 hr 04/06/25 04/06/25 04/06/25 08:05 08:05 08:05 WBC 23.58 H RBC 6.08 H Hgb 17.6 H Hct 52.3 H MCV 86 MCH 28.9 MCHC 33.7 RDW 13.2 Plt Count 229 MPV 11.6 H Immature Gran % 0.5 Neutrophils % 93.9 Lymphocytes % 2.4 Monocytes % 3.0 Eosinophils % 0.0 Basophils % 0.2 Nucleated RBC % 0.0 Absolute Neutrophils 22.14 H Absolute Lymphocytes 0.57 L Absolute Monocytes 0.71 Absolute Eosinophils 0.00 Absolute Basophils 0.05 RBC Morphology Normal Sodium 137 Potassium 3.9 Chloride 94 L Carbon Dioxide 23.6 Anion Gap 19.4 H BUN 31 H Creatinine 1.7 H Est GFR (CKD-EPI 2020) 40.75 Glucose 234 H Calcium 9.6 Magnesium 2.3 Cancelled Total Bilirubin 1.4 H AST 26 ALT 35 Alkaline Phosphatase 77 Troponin I 11 Cancelled Total Protein 8.1 Albumin 4.2 Lipase 21 04/06/25 04/06/25 04/06/25 08:05 08:58 09:52 WBC RBC Hgb Hct MCV MCH MCHC RDW Plt Count MPV Immature Gran % Neutrophils % Lymphocytes % Monocytes % Eosinophils % Basophils % Nucleated RBC % Absolute Neutrophils Absolute Lymphocytes Absolute Monocytes Absolute Eosinophils Absolute Basophils RBC Morphology Sodium Potassium Chloride Carbon Dioxide Anion Gap BUN Creatinine Est GFR (CKD-EPI 2020) Glucose Calcium Magnesium Total Bilirubin AST ALT Alkaline Phosphatase Troponin I 13 Cancelled Total Protein Albumin Lipase Cancelled Last Vital Signs Temp 97.8 F 04/06/25 08:26 Pulse 74 04/06/25 10:30 Resp 16 04/06/25 10:30 BP 164/82 H 04/06/25 10:27 Pulse Ox 95 04/06/25 10:30 Time Spent Time spent with Patient: 40-54 minutes Time was spent: preparing to see the patient(eg.review tests), obtaining and/or reviewing separately otained hiistory, ordering medications,tests, procedures, referring, communicating with other health healthcare management consultant, indepentently interpreting results and counseling the patient
--- NOTE | 2025-04-06 12:01 | W.PC.ACHO ---
Registration Status: REG ER Primary Language: Preferred Language: Pashto ED Information & Data Chief Complaint Nausea/Vomit/Diar 04/06/25 08:07 Chief Complaint Nausea/Vomit/Diar 04/06/25 07:57 Triage Note Started yesterday ABD cramps 04/06/25 07:57 , dry heaves, constipation, N/V, unable to keep fluids down, unable to sleep from discomfort last night Medical / Surgical History (Last Updated 06/13/24 @ 11:58 by Karen Hall NP) Dysuria Lumbar spinal stenosis (~2012) Impacted cerumen of both ears Hearing problem COVID (~03/2022) Knee pain, left Myopia of both eyes with astigmatism and presbyopia Exophoria of both eyes Bradycardia Vocal cord nodule Dysphonia Cataracts, both eyes Posterior vitreous detachment, right eye Ocular migraine Pseudophakia of both eyes Fatigue (06/02/13) Carpal tunnel syndrome, unspecified upper limb (11/17/12) Actinic keratosis (11/24/14) (Last Reviewed 06/13/24 @ 11:18 by Karen Hall NP) S/P skin biopsy (08/07/23) History of bilateral cataract extraction (~2009) History of strabismus surgery (~1981) Hx of tonsillectomy (~1959) H/O colonoscopy (~2021) Most Recent Vital Signs Temperature 36.6 C 04/06/25 08:26 Temperature Source Tympanic 04/06/25 08:26 Pulse 74 04/06/25 10:30 Pulse 76 04/06/25 10:30 Respiratory Rate 16 04/06/25 10:30 Blood Pressure 164/82 H 04/06/25 10:27 Blood Pressure Mean 109 04/06/25 10:27 Pulse Oximetry 95 04/06/25 10:30 Oxygen Delivery Method Room Air 04/06/25 08:05 Oxygen Flow Rate 0 04/06/25 08:05 Allergies lisinopril Adverse Reaction (Intermediate, Verified 04/06/25 08:02) cough Precautions Isolation Standard precaution 04/06/25 08:07 Active Medications Generic Name Dose Route Start Last Admin Trade Name Freq PRN Reason Stop Dose Admin Sodium Chloride 500 mls @ 500 mls/hr 04/06/25 11:02 04/06/25 11:08 Saline 500ml Bag IV 04/06/25 12:01 500 mls/hr BOLUS ONE Administration IV IV Catheter Type [Left Saline Lock Antecubital] IV Catheter Gauge [Left 18 Antecubital] Diagnostics 04/06/25 04/06/25 04/06/25 Range/Units 10:55 09:52 08:58 WBC (4.4-10.8) 10^3/uL RBC (4.36-5.78) 10^6/uL Hgb (13.5-17.5) g/dL Hct (40.0-50.0) % MCV (80-95) fL MCH (27.0-33.0) pg MCHC (32.0-36.0) % RDW (11.8-14.1) % Plt Count (130-400) 10^3/uL MPV (8.0-11.0) fL Immature Gran % % Neutrophils % % Lymphocytes % % Monocytes % % Eosinophils % % Basophils % % Nucleated RBC % (0.0-0.3) % Absolute Neutrophils (1.2-6.7) 10^3/uL Absolute Lymphocytes (1.2-3.4) 10^3/uL Absolute Monocytes (0.1-0.8) 10^3/uL Absolute Eosinophils (0.0-0.7) 10^3/uL Absolute Basophils (0.0-0.2) 10^3/uL RBC Morphology VBG Lactate 4.8 H* (<or=2.0) mmol/L Sodium (136-145) mmol/L Potassium (3.5-5.1) mmol/L Chloride (98-107) mmol/L Carbon Dioxide (21.0-32.0) mmol/L Anion Gap (3-11) mmol/L BUN (7-18) mg/dL Creatinine (0.70-1.30) mg/dL Est GFR (CKD-EPI 2020) (mL/min/1.73m2) Glucose (74-106) mg/dL Calcium (8.5-10.1) mg/dL Magnesium (1.8-2.4) mg/dL Total Bilirubin (0.2-1.0) mg/dL AST (15-37) U/L ALT (16-63) U/L Alkaline Phosphatase (46-116) U/L Troponin I Cancelled 13 (<or=76) ng/L Total Protein (6.4-8.2) g/dL Albumin (3.4-5.0) g/dL Lipase (<78) U/L 04/06/25 04/06/25 04/06/25 Range/Units 08:05 08:05 08:05 WBC (4.4-10.8) 10^3/uL RBC (4.36-5.78) 10^6/uL Hgb (13.5-17.5) g/dL Hct (40.0-50.0) % MCV (80-95) fL MCH (27.0-33.0) pg MCHC (32.0-36.0) % RDW (11.8-14.1) % Plt Count (130-400) 10^3/uL MPV (8.0-11.0) fL Immature Gran % % Neutrophils % % Lymphocytes % % Monocytes % % Eosinophils % % Basophils % % Nucleated RBC % (0.0-0.3) % Absolute Neutrophils (1.2-6.7) 10^3/uL Absolute Lymphocytes (1.2-3.4) 10^3/uL Absolute Monocytes (0.1-0.8) 10^3/uL Absolute Eosinophils (0.0-0.7) 10^3/uL Absolute Basophils (0.0-0.2) 10^3/uL RBC Morphology VBG Lactate (<or=2.0) mmol/L Sodium (136-145) mmol/L Potassium (3.5-5.1) mmol/L Chloride (98-107) mmol/L Carbon Dioxide (21.0-32.0) mmol/L Anion Gap (3-11) mmol/L BUN (7-18) mg/dL Creatinine (0.70-1.30) mg/dL Est GFR (CKD-EPI 2020) (mL/min/1.73m2) Glucose (74-106) mg/dL Calcium (8.5-10.1) mg/dL Magnesium Cancelled (1.8-2.4) mg/dL Total Bilirubin 1.4 H (0.2-1.0) mg/dL AST 26 (15-37) U/L ALT 35 (16-63) U/L Alkaline Phosphatase 77 (46-116) U/L Troponin I Cancelled 11 (<or=76) ng/L Total Protein 8.1 (6.4-8.2) g/dL Albumin 4.2 (3.4-5.0) g/dL Lipase Cancelled 21 (<78) U/L 04/06/25 Range/Units 08:05 WBC 23.58 H (4.4-10.8) 10^3/uL RBC 6.08 H (4.36-5.78) 10^6/uL Hgb 17.6 H (13.5-17.5) g/dL Hct 52.3 H (40.0-50.0) % MCV 86 (80-95) fL MCH 28.9 (27.0-33.0) pg MCHC 33.7 (32.0-36.0) % RDW 13.2 (11.8-14.1) % Plt Count 229 (130-400) 10^3/uL MPV 11.6 H (8.0-11.0) fL Immature Gran % 0.5 % Neutrophils % 93.9 % Lymphocytes % 2.4 % Monocytes % 3.0 % Eosinophils % 0.0 % Basophils % 0.2 % Nucleated RBC % 0.0 (0.0-0.3) % Absolute Neutrophils 22.14 H (1.2-6.7) 10^3/uL Absolute Lymphocytes 0.57 L (1.2-3.4) 10^3/uL Absolute Monocytes 0.71 (0.1-0.8) 10^3/uL Absolute Eosinophils 0.00 (0.0-0.7) 10^3/uL Absolute Basophils 0.05 (0.0-0.2) 10^3/uL RBC Morphology Normal VBG Lactate (<or=2.0) mmol/L Sodium 137 (136-145) mmol/L Potassium 3.9 (3.5-5.1) mmol/L Chloride 94 L (98-107) mmol/L Carbon Dioxide 23.6 (21.0-32.0) mmol/L Anion Gap 19.4 H (3-11) mmol/L BUN 31 H (7-18) mg/dL Creatinine 1.7 H (0.70-1.30) mg/dL Est GFR (CKD-EPI 2020) 40.75 (mL/min/1.73m2) Glucose 234 H (74-106) mg/dL Calcium 9.6 (8.5-10.1) mg/dL Magnesium 2.3 (1.8-2.4) mg/dL Total Bilirubin (0.2-1.0) mg/dL AST (15-37) U/L ALT (16-63) U/L Alkaline Phosphatase (46-116) U/L Troponin I (<or=76) ng/L Total Protein (6.4-8.2) g/dL Albumin (3.4-5.0) g/dL Lipase (<78) U/L Intake and Output - 24 Hour Total 04/06/25 07:53 thru 04/06/25 10:54 Intake Total 550 Balance 550 Weight 83.2 kg Intake: IV 550 Falls Risk Assessment History of Falls Previous History 04/06/25 08:04 Contributing Factors No Factors 04/06/25 08:04 Ambulatory Aids Independent 04/06/25 08:04 Tubes/Lines None 04/06/25 08:04 Gait Evaluation No gait disturbance 04/06/25 08:04 Cognition No cognitive impairment 04/06/25 08:04 Fall Total Score 15 04/06/25 08:04 Level of Risk Standard/Low Risk 04/06/25 08:04 Problems (Last Updated 06/13/24 @ 11:58 by Karen Hall, MINNIE) Acute lactic acidosis (Acute) SBO (small bowel obstruction) (Acute) Hyperbilirubinemia (Acute) Acute kidney injury (Acute) v v v v v v v v v Sending and/or Receiving Nurses: Please use comment section below to note any information pertinent to the patient hand-off not included above. Information / Comments: Called ED for report at 1200, Luna Rn assisting patient, will call back. Report received from:
--- NOTE | 2025-04-06 12:35 | W.PC.ACHO ---
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 Bradycardia Vocal cord nodule Dysphonia Cataracts, both eyes Posterior vitreous detachment, right eye Ocular migraine Pseudophakia of both eyes Fatigue (06/02/13) Carpal tunnel syndrome, unspecified upper limb (11/17/12) Actinic keratosis (11/24/14) (Last Reviewed 06/13/24 @ 11:18 by Karen Hall NP) S/P skin biopsy (08/07/23) History of bilateral cataract extraction (~2009) History of strabismus surgery (~1981) Hx of tonsillectomy (~1959) H/O colonoscopy (~2021) Most Recent Vital Signs Temperature 36.6 C 04/06/25 08:26 Temperature Source Tympanic 04/06/25 08:26 Pulse 71 04/06/25 12:00 Pulse 73 04/06/25 12:00 Respiratory Rate 15 04/06/25 12:00 Blood Pressure 156/78 H 04/06/25 12:09 Blood Pressure Mean 104 04/06/25 12:09 Pulse Oximetry 93 04/06/25 12:00 Oxygen Delivery Method Room Air 04/06/25 08:05 Oxygen Flow Rate 0 04/06/25 08:05 Allergies lisinopril Adverse Reaction (Intermediate, Verified 04/06/25 08:02) cough Precautions Isolation Standard precaution 04/06/25 08:07 IV IV Catheter Type [Left Saline Lock Antecubital] IV Catheter Gauge [Left 18 Antecubital] Diagnostics 04/06/25 04/06/25 04/06/25 Range/Units 10:55 09:52 08:58 WBC (4.4-10.8) 10^3/uL RBC (4.36-5.78) 10^6/uL Hgb (13.5-17.5) g/dL Hct (40.0-50.0) % MCV (80-95) fL MCH (27.0-33.0) pg MCHC (32.0-36.0) % RDW (11.8-14.1) % Plt Count (130-400) 10^3/uL MPV (8.0-11.0) fL Immature Gran % % Neutrophils % % Lymphocytes % % Monocytes % % Eosinophils % % Basophils % % Nucleated RBC % (0.0-0.3) % Absolute Neutrophils (1.2-6.7) 10^3/uL Absolute Lymphocytes (1.2-3.4) 10^3/uL Absolute Monocytes (0.1-0.8) 10^3/uL Absolute Eosinophils (0.0-0.7) 10^3/uL Absolute Basophils (0.0-0.2) 10^3/uL RBC Morphology VBG Lactate 4.8 H* (<or=2.0) mmol/L Sodium (136-145) mmol/L Potassium (3.5-5.1) mmol/L Chloride (98-107) mmol/L Carbon Dioxide (21.0-32.0) mmol/L Anion Gap (3-11) mmol/L BUN (7-18) mg/dL Creatinine (0.70-1.30) mg/dL Est GFR (CKD-EPI 2020) (mL/min/1.73m2) Glucose (74-106) mg/dL Calcium (8.5-10.1) mg/dL Magnesium (1.8-2.4) mg/dL Total Bilirubin (0.2-1.0) mg/dL AST (15-37) U/L ALT (16-63) U/L Alkaline Phosphatase (46-116) U/L Troponin I Cancelled 13 (<or=76) ng/L Total Protein (6.4-8.2) g/dL Albumin (3.4-5.0) g/dL Lipase (<78) U/L 04/06/25 04/06/25 04/06/25 Range/Units 08:05 08:05 08:05 WBC (4.4-10.8) 10^3/uL RBC (4.36-5.78) 10^6/uL Hgb (13.5-17.5) g/dL Hct (40.0-50.0) % MCV (80-95) fL MCH (27.0-33.0) pg MCHC (32.0-36.0) % RDW (11.8-14.1) % Plt Count (130-400) 10^3/uL MPV (8.0-11.0) fL Immature Gran % % Neutrophils % % Lymphocytes % % Monocytes % % Eosinophils % % Basophils % % Nucleated RBC % (0.0-0.3) % Absolute Neutrophils (1.2-6.7) 10^3/uL Absolute Lymphocytes (1.2-3.4) 10^3/uL Absolute Monocytes (0.1-0.8) 10^3/uL Absolute Eosinophils (0.0-0.7) 10^3/uL Absolute Basophils (0.0-0.2) 10^3/uL RBC Morphology VBG Lactate (<or=2.0) mmol/L Sodium (136-145) mmol/L Potassium (3.5-5.1) mmol/L Chloride (98-107) mmol/L Carbon Dioxide (21.0-32.0) mmol/L Anion Gap (3-11) mmol/L BUN (7-18) mg/dL Creatinine (0.70-1.30) mg/dL Est GFR (CKD-EPI 2020) (mL/min/1.73m2) Glucose (74-106) mg/dL Calcium (8.5-10.1) mg/dL Magnesium Cancelled (1.8-2.4) mg/dL Total Bilirubin 1.4 H (0.2-1.0) mg/dL AST 26 (15-37) U/L ALT 35 (16-63) U/L Alkaline Phosphatase 77 (46-116) U/L Troponin I Cancelled 11 (<or=76) ng/L Total Protein 8.1 (6.4-8.2) g/dL Albumin 4.2 (3.4-5.0) g/dL Lipase Cancelled 21 (<78) U/L 04/06/25 Range/Units 08:05 WBC 23.58 H (4.4-10.8) 10^3/uL RBC 6.08 H (4.36-5.78) 10^6/uL Hgb 17.6 H (13.5-17.5) g/dL Hct 52.3 H (40.0-50.0) % MCV 86 (80-95) fL MCH 28.9 (27.0-33.0) pg MCHC 33.7 (32.0-36.0) % RDW 13.2 (11.8-14.1) % Plt Count 229 (130-400) 10^3/uL MPV 11.6 H (8.0-11.0) fL Immature Gran % 0.5 % Neutrophils % 93.9 % Lymphocytes % 2.4 % Monocytes % 3.0 % Eosinophils % 0.0 % Basophils % 0.2 % Nucleated RBC % 0.0 (0.0-0.3) % Absolute Neutrophils 22.14 H (1.2-6.7) 10^3/uL Absolute Lymphocytes 0.57 L (1.2-3.4) 10^3/uL Absolute Monocytes 0.71 (0.1-0.8) 10^3/uL Absolute Eosinophils 0.00 (0.0-0.7) 10^3/uL Absolute Basophils 0.05 (0.0-0.2) 10^3/uL RBC Morphology Normal VBG Lactate (<or=2.0) mmol/L Sodium 137 (136-145) mmol/L Potassium 3.9 (3.5-5.1) mmol/L Chloride 94 L (98-107) mmol/L Carbon Dioxide 23.6 (21.0-32.0) mmol/L Anion Gap 19.4 H (3-11) mmol/L BUN 31 H (7-18) mg/dL Creatinine 1.7 H (0.70-1.30) mg/dL Est GFR (CKD-EPI 2020) 40.75 (mL/min/1.73m2) Glucose 234 H (74-106) mg/dL Calcium 9.6 (8.5-10.1) mg/dL Magnesium 2.3 (1.8-2.4) mg/dL Total Bilirubin (0.2-1.0) mg/dL AST (15-37) U/L ALT (16-63) U/L Alkaline Phosphatase (46-116) U/L Troponin I (<or=76) ng/L Total Protein (6.4-8.2) g/dL Albumin (3.4-5.0) g/dL Lipase (<78) U/L Intake and Output - 24 Hour Total 04/06/25 07:53 thru 04/06/25 10:54 Intake Total 550 Balance 550 Weight 83.2 kg Intake: IV 550 Falls Risk Assessment History of Falls Previous History 04/06/25 08:04 Contributing Factors No Factors 04/06/25 08:04 Ambulatory Aids Independent 04/06/25 08:04 Tubes/Lines None 04/06/25 08:04 Gait Evaluation No gait disturbance 04/06/25 08:04 Cognition No cognitive impairment 04/06/25 08:04 Fall Total Score 15 04/06/25 08:04 Level of Risk Standard/Low Risk 04/06/25 08:04 Problems (Last Updated 06/13/24 @ 11:58 by Karen Hall NP) Acute lactic acidosis (Acute) SBO (small bowel obstruction) (Acute) Hyperbilirubinemia (Acute) Acute kidney injury (Acute) v v v v v v v v v Sending and/or Receiving Nurses: Please use comment section below to note any information pertinent to the patient hand-off not included above. Information / Comments: report received from Luna RN at Ed 1234, patient admitted for possible SBO and LUCAS, no pain reported while at ED, surgical consulted. no n/v. will assess upon arrival to unit Report received from:
[2025-04-06] MEDS: Lactated Ringers 1,000 ML 75 ML IV (13:55)
[2025-04-06] MEDS: ACETAMINOPHEN 1,000 MG/100 ML BAG 400 MG IVPB ×2 (14:03→21:41)
[2025-04-06] MEDS: Heparin 5,000 UNITS/ML VIAL 5000 UNITS SC (18:08)
[2025-04-06] MEDS: Normal Saline Flush 10 ML SYR IVP (20:32)
[2025-04-07 06:47] LABS: HCT 39.7 % (40.0-50.0); HGB 13.7 g/dL (13.5-17.5); MCH 29.7 pg (27.0-33.0); MCHC 34.5 % (32.0-36.0); MCV 86 fL (80-95); MPV 11.5 fL (8.0-11.0); Platelet Count 171 10^3/uL (130-400); RBC 4.61 10^6/uL (4.36-5.78); RDW 13.5 % (11.8-14.1); RDW-SD 41.9 fL; WBC 12.69 10^3/uL (4.4-10.8)
[2025-04-07] MEDS: ACETAMINOPHEN 1,000 MG/100 ML BAG 400 MG IVPB ×2 (06:51→13:54)
[2025-04-07] MEDS: Heparin 5,000 UNITS/ML VIAL 5000 UNITS SC (06:51)
[2025-04-07 07:07] LABS: Anion Gap 7.3 mmol/L (3-11); BUN 30 mg/dL (7-18); CO2 28.7 mmol/L (21.0-32.0); Calcium 8.2 mg/dL (8.5-10.1); Chloride 104 mmol/L (98-107); Estimated GFR 90.58 (mL/min/1.73m2); Glucose 101 mg/dL (74-106); Potassium 3.9 mmol/L (3.5-5.1); Sodium 140 mmol/L (136-145)
[2025-04-07 08:01] VITALS: BP 129/73; PULSE 60; RESP 16; TEMP 37.1; O2SAT 99
[2025-04-07] MEDS: Polyethylene Glycol 3350 17 GM PACKET PO (08:09)
[2025-04-07] MEDS: Normal Saline Flush 10 ML SYR IVP (08:10)
--- NOTE | 2025-04-07 09:41 | PDOC.CMIN ---
Date of service: 04/07/25 Time of Service: 09:41 Care Management Initial Assmt Initial Assessment Reason for Hospitalization: SBO Functional Status/Living Situation Town of Residence: [facility] Resides with: Spouse ( Yolette) Employment Status: Retired Medications Medication Management: No Issues/Barriers identified Advance Directives Advance Directives: Do you have an Advance Directive: Y 04/06/25, 11:52 AD On File at [facility]: Y 04/06/25, 11:52 Date Asked 04/06/25 04/06/25, 08:15 AD Date Reviewed 04/06/25 04/06/25, 11:52 COLST On File at [facility] COLST Date Scanned Code Status Resuscitation Status Full Code Insurance Coverage/Financial Issues Insurance: BC/BS Medicare Advantage Care Team Visit Care Team Role Provider Type Karen Hall NP Primary Care Provider NURSE PRACTITIONER Abraham Barba MD Emergency Provider [facility] STAFF PHYSICIAN Leo Dueñas MD Admit Provider [facility] STAFF PHYSICIAN Attending Provider Discharge Potential Discharge Needs: PCP F/U Appt Anticipated Barriers to Discharge: None Identified Patient/Family Education Needs: Review discharge instructions, discuss Ask Me Three Transportation: Private vehicle Plan: Anticipate Stevo will be discharged home with no new services when medically cleared. He will follow up with his surgeon, PCP and plan of care and transport with family. CM will follow and continue to assess for discharge planning concerns. Social Determinants of Health Screening Social Determinants of health last assessed in clinic: 04/06/25 Will the Patient Participate in the Screening?: Yes Do you worry about having a steady place to live?: no Problems where you live: no known problems In the past 12 months, have you had to go without electric, gas, oil or water in your home?: no Has lack of transportation kept you from medical appointments or from doing things needed for daily living?: no Has anyone in your life made you feel unsafe or unsupported?: no How hard is it for you to pay for the very basics like food, housing, medical care, and heating? Would you say it is:: Not hard at all Do you want help finding or keeping work or a job?: I do not need or want help If for any reason you need help with day-to-day activities such as bathing, preparing meals, shopping, managing finances, etc., do you get the help you need?: I don?t need any help How often do you feel lonely or isolated from those around you?: Never Do you speak a language other than Panamanian at home?: Yes Does the patient want assistance with any of the above?: No Health Related Social Needs Health related social needs: education (Z55.6) Health related social needs details: none at this time [facility] All Active Problems (Updated 04/06/25 @ 11:00 by Abraham Barba MD) Acute lactic acidosis (Acute) SBO (small bowel obstruction) (Acute) Hyperbilirubinemia (Acute) Acute kidney injury (Acute) Blepharitis (Acute ~2023) SCC (squamous cell carcinoma), 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, excoriated, present at specimen edges Primary hypertension (Acute ~2012) Reduced speech discrimination (Acute) Sensorineural hearing loss of both ears (Acute) Obesity, unspecified (Acute 11/28/11) Male erectile disorder (Acute 06/02/13) Impaired fasting glucose (Chronic 08/09/12) Hyperlipidemia (Chronic 11/17/12) PCEq risk 22% LDL baseline 177 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 [facility] Opth visit Bradycardia quality assurance monitor body, stable--HR bradycardic, but it comes back down Vocal cord nodule Left Dysphonia Cataracts, both eyes Posterior vitreous detachment, right eye H/O Ocular migraine Pseudophakia of both eyes Fatigue (06/02/13) Carpal tunnel syndrome, unspecified upper limb (11/17/12) Actinic keratosis (11/24/14) Surgical History S/P skin biopsy (08/07/23) Dr Joseph Merlos posterior parietal scalp History of bilateral cataract extraction (~2009) History of strabismus surgery (~1981) Hx of tonsillectomy (~1959) H/O colonoscopy (~2021) Family History Mother Mental disorder Alzheimer Disease Dementia Lewy body dementia Sister Dementia Lewy body dementia Maternal Grandmother Dementia Lewy body dementia Father COPD (chronic obstructive pulmonary disease) Heart disease of [place] Maternal Grandfather Heart disease [place] at age 57 Social History Smoking/Tobacco Use Status: Never Smoking risk assessment performed?: Yes Alcohol Intake: never Drug use: Never Substance use type: does not use Adopted: No Caregiver/Support person: No Foster care: No Household members: spouse Housing: house Number of Children: 4 number of grandchildren: 7 Communication Needs: Hard of Hearing Education Level: master's degree Do you need help understanding health information?: Rarely 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[employer]) Pets and animals: No Sexually active: Yes Do you think of yourself as: straight/heterosexual Current gender identity: male What is your relationship status?: How often do you talk on the phone with friends or family?: three or more times per week How often do you get together with friends or relatives?: three or more times per week How often do you attend latter day or jainism services?: decline to answer Do you belong to any clubs or organized social groups?: no Panel score (0-1 are the most socially isolated patients): 2 What type of physical activity do you participate in: bicycling, regular exercise and other Details: snow shoes when he can Duration: 15-30 minutes/day Frequency: 5-6 times per week Special amanuel needs: No Seatbelt use: always Helmet use: No (N/A) Drive intox or ride w/intox cement truck driver: No Working smoke detector in home: Yes Fire extinguisher in home: Yes Carbon monox detector in home: Yes Do you feel safe at home: Yes Do you feel safe in your relationship?: Yes Victim of physical abuse: No Victim of emotional abuse: No Victim of sexual abuse: No Would you like helpful sources: No
--- NOTE | 2025-04-07 14:11 | W.PM.PROGNOT ---
Date of Service Date of service: 04/07/25 Time of Service: 14:11 Assessment and Plan Assessment and plan (1) SBO (small bowel obstruction): Status: Acute Assessment and plan: I am a little skeptical that this is actually a small bowel obstruction, and probably simple gastroenteritis. He is doing great, and I will discharge him home with outpatient follow-up. Subjective Subjective Interval history since last seen: Stevo looks great today. His abdomen is not at all distended. He is been passing flatus, and was able to tolerate some liquids today with a few bowel movements after that. White blood cell count is normalizing. Exam GI Other: Abdomen is soft and nondistended. He is great bowel sounds. He is not at all tender. Objective Last Vital Signs Temp 98.8 F 04/07/25 08:01 Pulse 60 04/07/25 08:01 Resp 16 04/07/25 08:01 BP 129/73 04/07/25 08:01 Pulse Ox 99 04/07/25 08:01 Laboratory Results - last 24 hr 04/06/25 04/07/25 15:03 05:50 WBC 12.69 H RBC 4.61 Hgb 13.7 D Hct 39.7 L MCV 86 MCH 29.7 MCHC 34.5 RDW 13.5 Plt Count 171 MPV 11.5 H VBG Lactate 2.2 H* Sodium 140 Potassium 3.9 Chloride 104 Carbon Dioxide 28.7 Anion Gap 7.3 BUN 30 H Creatinine 0.8 Est GFR (CKD-EPI 2020) 90.58 Glucose 101 Calcium 8.2 L Time Spent with Patient Time Spent with Patient: 25-34 minutes Time was spent: preparing to see the patient(eg.review tests), counseling the patient and care coordination
--- NOTE | 2025-04-07 14:14 | W.PM.DS.N ---
Date of service: 04/07/25 Time of Service: 14:14 DS: Diagnosis Discharge Diagnosis (1) SBO (small bowel obstruction): Status: Acute Asessment and Plan: Outpatient follow-up Discharge Plan Disposition Patient Disposition: Home Condition: Good Discharge Details Reason For Visit: Small Bowel Obstruction Admit Date/Time: 04/06/25 10:54 Admit Provider: Leo Dueñas Attending Provider: Leo Dueñas Primary Care Provider: Karen Hall Hospital Course Hospital Course: Stevo is 79 years old. He came to the emergency department with acute onset of abdominal pain with nausea and vomiting. He underwent a CT scan that suggested the possibility of small bowel obstruction. Symptoms rapidly improved while he was in the ER, but he also had a lactic acidosis and an elevated white blood cell count. Therefore, he is admitted to the hospital for a course of resuscitation and observation. His symptoms resolved throughout the course of the afternoon, and his laboratories and vital signs were all reassuring within 24 hours. He was able to tolerate a diet with multiple bowel movements. He was discharged home with outpatient follow-up. Home Meds and New Rx's Prescriptions: Continued multivitamin with minerals 1 EACH tablet 1 ea PO DAILY Varicella-Zoster Ge/As01b/Pf [Shingrix Vial Kit] 50 MCG INJ 50 mcg IM ONCE Qty: 1 1RF atorvastatin 20 mg tablet See Rx Instructions .ROUTE .COMPLEX Qty: 90 3RF Dose Instruction: TAKE ONE TABLET BY MOUTH EVERY DAY Rx Instructions: TAKE ONE TABLET BY MOUTH EVERY DAY losartan 50 mg tablet See Rx Instructions .ROUTE .COMPLEX Qty: 90 3RF Dose Instruction: TAKE ONE TABLET BY MOUTH EVERY DAY TO CONTROL BLOOD PRESSURE Rx Instructions: TAKE ONE TABLET BY MOUTH EVERY DAY TO CONTROL BLOOD PRESSURE sildenafil 100 mg tablet See Rx Instructions .ROUTE .COMPLEX Qty: 10 5RF Dose Instruction: TAKE ONE TABLET BY MOUTH EVERY DAY NEEDED FOR SEXUAL ACTIVITY Rx Instructions: TAKE ONE TABLET BY MOUTH EVERY DAY NEEDED FOR SEXUAL ACTIVITY Discharge Instructions Additional Instructions: Stevo, was great meeting you, and I hope you make a quick and uneventful recovery as you transition home. I have taken the liberty of scheduling a follow-up appointment in our office on the at 11 AM. As I mentioned, if you are totally feeling back to normal, please just give the office a call, and maybe we can even just talk over the telephone to save you the trip. If you need anything at all, please do not hesitate to call at any time. Referrals: Leo Dueñas MD [ [facility] STAFF PHYSICIAN, Surgery] - 04/20/25 11:00 am Activity:: Activity as Tolerated Equipment/Supplies:: No Equipment Needed Diet:: As Tolerated DS: Summary Time Spent with Patient providing and/or coordinating discharge services: Less than 30 minutes Status at Discharge Functional status at discharge: independent ambulation Overall status at discharge: patient is back to baseline Mental Status: mental status grossly normal Speech and Movement: speech and movement normal Mood: congruent mood Affect: normal affect Quality:SDOH Health Related Social Needs: Health related social needs education Health related social needs details none at this time Health related social needs details: none at this time Exam Psych Mental Status: mental status grossly normal Speech and Movement: speech and movement normal Mood: congruent mood Affect: normal affect DS: Data Vitals/I&O Vitals and I&O: Vital Signs Temperature 98.8 F 04/07/25 08:01 Temperature Source Temporal Artery Scan 04/07/25 08:01 Pulse 60 04/07/25 08:01 Pulse Rhythm Regular 04/06/25 14:15 Pulse 73 04/06/25 12:00 Respiratory Rate 16 04/07/25 08:01 Respiratory Effort Normal 04/06/25 14:15 Respiratory Depth Normal 04/06/25 14:15 Respiratory Pattern Normal 04/06/25 14:15 Blood Pressure 129/73 04/07/25 08:01 Blood Pressure Mean 91 04/07/25 08:01 Pulse Oximetry 99 04/07/25 08:01 Oxygen Delivery Method Room Air 04/07/25 08:01 Oxygen Flow Rate 0 04/07/25 08:01 Pain Level 0 04/07/25 08:00 Intake & Output 04/06/25 04/07/25 04/07/25 23:59 11:59 23:59 Intake Total 700 / 1250 1220 / 1440 220 / 1440 Balance 700 / 1250 1220 / 1440 220 / 1440 Intake: IV 700 / 1250 1100 / 1100 Oral 120 / 340 220 / 340 Other: Urine Color Yellow Urine Appearance Clear Urine Odor Normal Comment Pt reports voiding independently to toilet Stool Size Moderate Stool Characteristics Formed Brown Emesis Description None None Data Completed and Pending Labs on day of discharge: Labs from last 24 hours 04/07/25 04/06/25 05:50 15:03 WBC 12.69 H RBC 4.61 Hgb 13.7 D Hct 39.7 L MCV 86 MCH 29.7 MCHC 34.5 RDW 13.5 Plt Count 171 MPV 11.5 H VBG Lactate 2.2 H* Sodium 140 Potassium 3.9 Chloride 104 Carbon Dioxide 28.7 Anion Gap 7.3 BUN 30 H Creatinine 0.8 Est GFR (CKD-EPI 2020) 90.58 Glucose 101 Calcium 8.2 L PFSH All Active Problems (Updated 04/06/25 @ 11:00 by Abraham Barba MD) Acute lactic acidosis (Acute) SBO (small bowel obstruction) (Acute) Hyperbilirubinemia (Acute) Acute kidney injury (Acute) Blepharitis (Acute ~2023) SCC (squamous cell carcinoma), 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, excoriated, present at specimen edges Primary hypertension (Acute ~2012) Reduced speech discrimination (Acute) Sensorineural hearing loss of both ears (Acute) Obesity, unspecified (Acute 11/28/11) Male erectile disorder (Acute 06/02/13) Impaired fasting glucose (Chronic 08/09/12) Hyperlipidemia (Chronic 11/17/12) PCEq risk 22% LDL baseline 177 Adenoma of large intestine (Acute 03/02/13) 09/12/2108-[id number] polyp-fragments of tubular adenoma; transverse polyp-sessile serrated polyp/adenoma-[facility] [place] Medical History (Updated 04/06/25 @ 11:00 by Abraham Barba MD) Dysuria Mild burning sensation (before/with urin) .. 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, stable--HR bradycardic, but it comes back down Vocal cord nodule Left Dysphonia Cataracts, both eyes Posterior vitreous detachment, right eye H/O Ocular migraine Pseudophakia of both eyes Fatigue (06/02/13) Carpal tunnel syndrome, unspecified upper limb (11/17/12) Actinic keratosis (11/24/14) Surgical History S/P skin biopsy (08/07/23) Dr Joseph Merlos posterior parietal scalp History of bilateral cataract extraction (~2009) History of strabismus surgery (~1981) Hx of tonsillectomy (~1959) H/O colonoscopy (~2021) Family History Mother Mental disorder Alzheimer Disease Dementia Lewy body dementia Sister Dementia Lewy body dementia Maternal Grandmother Dementia Lewy body dementia Father COPD (chronic obstructive pulmonary disease) Heart disease of [place] Maternal Grandfather Heart disease [place] at age 57 Social History Smoking/Tobacco Use Status: Never Smoking risk assessment performed?: Yes Alcohol Intake: never Drug use: Never Substance use type: does not use Adopted: No Caregiver/Support person: No Foster care: No Household members: spouse Housing: house Number of Children: 4 number of grandchildren: 7 Communication Needs: Hard of Hearing Education Level: master's degree Do you need help understanding health information?: Rarely 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[employer]) Pets and animals: No Sexually active: Yes Do you think of yourself as: straight/heterosexual Current gender identity: male What is your relationship status?: How often do you talk on the phone with friends or family?: three or more times per week How often do you get together with friends or relatives?: three or more times per week How often do you attend restorationist or confucianist services?: decline to answer Do you belong to any clubs or organized social groups?: no Panel score (0-1 are the most socially isolated patients): 2 What type of physical activity do you participate in: bicycling, regular exercise and other Details: snow shoes when he can Duration: 15-30 minutes/day Frequency: 5-6 times per week Special amanuel needs: No Seatbelt use: always Helmet use: No (N/A) Drive intox 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
--- NOTE | 2025-04-07 15:53 | CMPROGNOTE_ITS ---
Date of service: 04/07/25 Time of Service: 15:53 Care Management Progress Note Progress Note Text Progress Note Text: Eliecer, who prefers to be called Stevo, was admitted last evening with a possible SBO. He had sudden onset of nausea, vomiting and abdominal at home and presented to the ED. He had a Ct scan which was suggestive of a SBO and his WBC and lactic acid were anderson elevated. Stevo was given IV fluids and monitored and by noontime, was feeling better and was able to have several BMs. He was discharged home this afternoon with no new services. Discharge Potential Discharge Needs: PCP F/U Appt and Surgical F/U Appt Anticipated Barriers to Discharge: None Identified Patient/Family Education Needs: Review discharge instructions, discuss Ask Me Three Transportation: Private vehicle Plan: Eliecer will be discharged home with no new services. he will follow up with his community providers and transport via private vehicle. Social Determinants of Health Screening Social Determinants of health last assessed in clinic: 04/07/25 Will the Patient Participate in the Screening?: Yes Do you worry about having a steady place to live?: no Problems where you live: no known problems In the past 12 months, have you had to go without electric, gas, oil or water in your home?: no 1. Within the past 12 months, we worried whether our food would run out before we got money to buy more.: Never true 2. Within the past 12 months, the food we bought just didn't last and we didn't have money to get more.: Never true Has lack of transportation kept you from medical appointments or from doing things needed for daily living?: no Has anyone in your life made you feel unsafe or unsupported?: no How hard is it for you to pay for the very basics like food, housing, medical care, and heating? Would you say it is:: Not hard at all Do you want help finding or keeping work or a job?: I do not need or want help If for any reason you need help with day-to-day activities such as bathing, preparing meals, shopping, managing finances, etc., do you get the help you need?: I don?t need any help How often do you feel lonely or isolated from those around you?: Never Do you speak a language other than Persian at home?: Yes Does the patient want assistance with any of the above?: No Health Related Social Needs Health related social needs: education (Z55.6) Health related social needs details: none at this time
== END 2025-04-07 14:47 | disposition home or self-care (01) ==
LOC: ER 11:52 → MS 12:48
PROVIDERS: Admitting Provider Surgery; Emergency Provider Emergency Medicine; PCP Nurse Practitioner Adult Health; Visit Provider Surgery
DX: K56.600 Partial intestinal obstruction, unspecified as to cause (principal); D72.829 Elevated white blood cell count, unspecified; K57.30 Diverticulosis of large intestine without perforation or abscess without bleeding; E87.20 Acidosis, unspecified; N17.9 Acute kidney failure, unspecified; H90.3 Sensorineural hearing loss, bilateral; I10 Essential (primary) hypertension; E66.9 Obesity, unspecified; E78.5 Hyperlipidemia, unspecified; R73.01 Impaired fasting glucose; R30.0 Dysuria; M48.061 Spinal stenosis, lumbar region without neurogenic claudication; R11.2 Nausea with vomiting, unspecified
CPT/HCPCS: 36415; 80048; 80053; 83690; 85027; 93005; 96361; 96365; 96366; 99222; 99238; 99285; 74176; 83605; 83735; 84484; 85025; 93010; G0378; J0131; J1644; J3475